=== PATIENT | male | born 1955 | race Caucasian/White ===

== ENCOUNTER → 2019-11-04 14:30 | Outpatient (BNVA) | payer MEDICARE, MEDICAID, SELFPAY | PROVIDERS: PCP Nurse Practitioner; Visit Provider Internal Medicine Cardiovascular Disease | DX: I25.10 Atherosclerotic heart disease of native coronary artery without angina pectoris (principal); R07.9 Chest pain, unspecified | CPT/HCPCS: 80061; 83036 ==

== ENCOUNTER 2019-12-28 06:48 | Outpatient (CLI) | payer MEDICARE, MEDICAID, SELFPAY ==
--- NOTE | 2019-12-28 06:54 | NMCV_ITS ---
NM petr perf SPECT r/s* [id number] Geovanni Dudley Age: 64 Gender: M : 1955 Exam Date: 12/28/2019 08:01 Ordering Phys: Benita Lopez MD ([email or web address]) Technologist: FARRUKH Tyler Exam Location: [facility] Indications: CHEST PAIN STRESS TEST Please see separate stress test report in [facility] for full findings IMAGE PROTOCOL Rest/Stress 1 Lexiscan Day Radiopharmaceutical Dose (mCi) Administration Site Administered by Rest: Tc-99m 10.8 IV FARRUKH Miller Sestamibi Stress:Tc-99m 32.9 IV FARRUKH Miller Sestamibi Rest: 28-Dec-2019 60 Discovery 630 Stress: 28-Dec-2019 30 Discovery 630 0.4mg Lexiscan. Images obtained in supine and prone position. SPECT RESULTS Technical Quality: Excellent Raw Data Analysis: Normal Image Corrections: No attenuation or motion correction applied Summed Stress Score: 23 Summed Rest Score: 21 Summed Difference Score: 3 PERFUSION FINDINGS Large size perfusion abnormality of moderate to severe severity of mid to apical anterior, mid to apical septal, apical inferior alvarez on rest and stress images. FUNCTIONAL RESULTS (calculated via Gated SPECT) Stress Image LV EF (%): 33 Stress EDV (mL):236 TID: 1.2 Stress ESV (mL):158 FUNCTIONAL FINDINGS: The left ventricle is dilated. Transient Ischemia Dilatation of 1.2. The left ventricular ejection fraction is severely reduced with a value of 33%. There is hypokinesis of mid to apical anterior septal and apical alvarez. There is severely decreased wall thickening. Markedly increased end-diastolic and end-systolic volumes. IMPRESSIONS 1. Large size predominantly fixed perfusion abnormality of moderate to severe severity of mid to apical anterior, mid to apical septal and apical alvarez. 2. This is suggestive of large area of old myocardial infarction in left anterior descending artery territory with no significant michael-infarct ischemia. 3. The left ventricular ejection fraction is severely reduced with a value of 33%. 4. There is hypokinesis of mid to apical anterior septal and apical alvarez. 5. No coronary ischemia based on the study. No prior similar studies to compare. Benita Lopez MD (Electronically Signed) Final Date: 30 Dec 2019 16:33 S
--- NOTE | 2019-12-28 07:00 | ECG_ITS ---
NAME OF STUDY: LEXISCAN SESTAMIBI STRESS TEST INDICATION: Chest Pain PROCEDURE: At the baseline, the blood pressure was 151/83 mmHg, oxygen saturation 96% with a heart rate of 56 bpm. The electrocardiogram showed sinus bradycardia with PACs, normal axis. Possible old anterior infarct. The Lexiscan was infused over a period of 20 seconds. A total of 0.4 milligrams of Lexiscan was infused. The stress phase was continued for a total of 5 minutes. Heart rate at the end of the stress phase was 58 bpm, oxygen saturation 96% with a blood pressure 143/78 mmHg. The EKG at the peak infusion revealed no significant ST-T wave changes. Sestamibi was injected 20 seconds after the Lexiscan infusion. Blood pressure at the end of the recovery phase was 142/75 mmHg, oxygen saturation 97% with a heart rate of 56 beats per minute. CONCLUSION: 1. No significant EKG changes with the LexiScan infusion. 2. No LexiScan induced chest pain or cardiac arrhythmia. 3. Normal blood pressure and heart rate response. 4. Sestamibi/sestamibi perfusion scan pending; see separate report. Electronically Signed On 12-29-2019 14:32:39 CDT by Benita Lopez M.D. [email or web address]
[2019-12-28 07:13] VITALS: BMI 29.5
[2019-12-28 08:43] VITALS: BP 129/97; PULSE 62
[2019-12-28] MEDS: regadenoson 0.4 Mg/5 ml Syringe IVP (08:43)
== END 2019-12-28 06:49 | disposition home or self-care (01) ==
PROVIDERS: PCP Nurse Practitioner; Visit Provider Internal Medicine Cardiovascular Disease
DX: R07.9 Chest pain, unspecified (principal); I25.10 Atherosclerotic heart disease of native coronary artery without angina pectoris
CPT/HCPCS: 78452; 93017; A9500; J2785

== ENCOUNTER → 2020-03-17 10:59 | Outpatient (BNVA) | payer MEDICARE, MEDICAID, SELFPAY | PROVIDERS: PCP Nurse Practitioner; Visit Provider Internal Medicine Cardiovascular Disease | DX: I25.10 Atherosclerotic heart disease of native coronary artery without angina pectoris (principal); R07.9 Chest pain, unspecified; I25.5 Ischemic cardiomyopathy; I10 Essential (primary) hypertension | CPT/HCPCS: 80053; 80061; 83735; 83880 ==

== ENCOUNTER → 2020-07-11 09:05 | Outpatient (BNVA) | payer MEDICARE, MEDICAID, SELFPAY | PROVIDERS: PCP Nurse Practitioner; Visit Provider Internal Medicine Cardiovascular Disease | DX: I25.5 Ischemic cardiomyopathy (principal); I25.10 Atherosclerotic heart disease of native coronary artery without angina pectoris; I10 Essential (primary) hypertension; E78.5 Hyperlipidemia, unspecified | CPT/HCPCS: 80048; 83735; 83880 ==

== ENCOUNTER 2020-08-16 13:44 | Outpatient (CLI) | payer MEDICARE, MEDICAID, SELFPAY ==
--- NOTE | 2020-08-16 14:15 | USCV_ITS ---
Dudley Geovanni Age: 64 Gender: M : 1955 Exam Date: 08/16/2020 14:11 Ordering Phys: Benita Lopez MD ([email or web address]) Technologist: Alda Chavarria Exam Location: [facility] [place] Indication: OCCLUSION ADN STENOSIS Risk Factors: Previous Vascular Surgery: Right Brachial BP: / Left Brachial BP: / Right Left Velocity (cm/s) Spectral Plaque Velocity (cm/s) Spectral Plaque Syst/Diast Broadening Syst/Diast Broadening 99.20/ 17.60 Prox CCA 75.10 / 15.30 93.70/ 25.40 Mid CCA 100.30/ 25.40 65.70/ 12.50 Distal CCA 70.10 / 18.10 68.40/ 21.80 Prox ICA 77.30 / 19.30 102.50/35.70 Mid ICA 87.70 / 24.60 108.80/38.80 Distal ICA 61.10 / 23.70 178.70 ECA 161.90 1.16 ICA/CCA 0.87 Antegrade Vertebral Antegrade 54.70/ 16.20 cm/s 39.00/ 13.60 cm/s Tri Subclavian Tri 61.80 58.40 FINDINGS Comparison:. 09/09/14. No significant elevation of systolic or diastolic velocities. Diffuse bilateral scattered calcified plaque and intimal thickening throughout the common carotid arteries and extending through the bifurcation. Right common carotid intimal thickening measures up to 3.1 mm. Antegrade vertebral arteries. CONCLUSIONS Bilateral ICA stenosis less than 50%. Moderate diffuse atherosclerotic disease. No progression. Dr. Jessica Stoner DO (Electronically Signed) Final Date: 17 August 2020 07:52 S
--- NOTE | 2020-08-16 15:00 | CT_ITS ---
WS: [id number] CT CHEST WITHOUT INTRAVENOUS CONTRAST HISTORY: R06.00 - Dyspnea, unspecified TECHNIQUE: Contiguous 5 mm axial imaging performed on the thorax. Coronal and sagittal reformats are submitted. All CT scans at [facility] use at least one of these dose optimization techniq ues: automated exposure control; mA and/or kV adjustment per patient size (includes targeted exams wh ere dose is matched to clinical indication); or iterative reconstruction. CONTRAST: None DLP: 781.78 mGy.cm COMPARISON: None available. Lungs and central airway: Hyperexpanded lungs. Moderate changes of paraseptal emphysema. There is arcenio e mild thickening of the pleura especially within the upper lung reza. Mild bronchiectasis centrall y extending into the upper lobes, LEFT lower and RIGHT middle lobes. More focal cystic dilatation of the bronchus in the LEFT lower lobe. Pleura: No pleural effusion. Heart and pericardium: Mild enlargement of the heart with no pericardial effusion. Scattered coronary artery calcifications. Mediastinum and travis: No mediastinum or hilar adenopathy. Vessels: Mild atherosclerosis aorta. Normal size pulmonary arteries. Chest wall and lower neck: No soft tissue masses. Upper abdomen: Prior cholecystectomy. No adrenal mass. Osseous structures: Multilevel degenerative disc space narrowing and osteophytosis throughout the mid thoracic spine. There are multilevel osteophytes that project towards the thoracic cord in the mid t horacic spine. CT/CT chest wo con [id number] IMPRESSION: 1. Paraseptal emphysema. No pulmonary pneumonia or mass. 2. Multilobar mild bronchiectasis. Most significant bronchial dilatation LEFT lower lobe. 3. Prior cholecystectomy. 4. Mild atherosclerosis aorta and kaibab coronary arteries.
== END 2020-08-16 13:45 | disposition home or self-care (01) ==
PROVIDERS: PCP Nurse Practitioner; Visit Provider Internal Medicine Cardiovascular Disease
DX: R06.00 Dyspnea, unspecified (principal); I65.23 Occlusion and stenosis of bilateral carotid arteries; I70.0 Atherosclerosis of aorta; Z90.49 Acquired absence of other specified parts of digestive tract; J47.9 Bronchiectasis, uncomplicated; J43.9 Emphysema, unspecified
CPT/HCPCS: 71250; 93880

== ENCOUNTER → 2020-10-12 09:29 | Outpatient (BNVA) | payer MEDICARE, MEDICAID, SELFPAY | PROVIDERS: PCP Nurse Practitioner; Visit Provider Internal Medicine Critical Care Medicine | DX: J44.9 Chronic obstructive pulmonary disease, unspecified (principal); Z20.828 Contact with and (suspected) exposure to other viral communicable diseases | CPT/HCPCS: 87635 ==

== ENCOUNTER 2020-10-18 13:51 | Outpatient (CLI) | payer MEDICARE, MEDICAID, SELFPAY ==
--- NOTE | 2020-10-18 14:21 | PFTS_ITS ---
Date of Study:10/18/20 Date of Dictation: MECHANICS: Forced vital capacity (FVC) is normal. Forced expiratory volume in one second (FEV1) is normal. FEV1/FVC is normal. FLOW VOLUME LOOP: Hesitation during forced expiratory maneuver LUNG VOLUMES: Total lung capacity (TLC) is normal. Residual volume (RV) is increased. DIFFUSING CAPACITY FOR CARBON MONOXIDE: Normal. INTERPRETATION: The prebronchodilator spirometry is normal. Lung volumes are consistent with air trapping. Gas exchange (DLCO) is normal. MTDD
== END 2020-10-18 13:52 | disposition home or self-care (01) ==
LOC: RT 13:52
PROVIDERS: PCP Nurse Practitioner; Visit Provider Internal Medicine Critical Care Medicine
DX: J44.9 Chronic obstructive pulmonary disease, unspecified (principal)
CPT/HCPCS: 94010; 94726; 94729

== ENCOUNTER 2020-11-21 14:56 | Outpatient (CLI) | payer MEDICARE, MEDICAID, SELFPAY ==
--- NOTE | 2020-11-21 15:45 | USCV_ITS ---
Geovanni Dudley Age: 65 Gender: M : 1955 Exam Date: 11/21/2020 15:22 Ordering Phys: Benita Lopez MD ([email or web address]) Technologist: Jez Mclean Exam Location: [facility] [place] Indication: ISCHEMIC CARDIOMYOPATHY BP: 136 / 72 HR: 56 Rhythm: Sinus Technical Quality: Good MEASUREMENTS (Male / Female) Normal Values 2D ECHO LV Diastolic Diameter PLAX 5.0 cm 4.2 - 5.9 / 3.9 - 5.3 cm LV Systolic Diameter PLAX 3.5 cm IVS Diastolic Thickness 1.4 cm 0.6 - 1.0 / 0.6 - 0.9 cm IVS Systolic Thickness 2.1 cm LVPW Diastolic Thickness 1.5 cm 0.6 - 1.0 / 0.6 - 0.9 cm LVPW Systolic Thickness 1.7 cm LVOT Diameter 2.0 cm LV Ejection Fraction 2D Teich 56.9 % LV Ejection Fraction MOD 2C 68.2 % LV Ejection Fraction 2C AL 68.8 % LA Diameter 4.4 cm LA Width 3.5 cm LA Height 5.2 cm RA Width 3.3 cm RA Height 5.1 cm Aorta at Sinotubular Diameter 3.2 cm M-MODE LV Diastolic Diameter MM 6.2 cm 4.2 - 5.9 / 3.9 - 5.3 cm LV Systolic Diameter MM 4.4 cm LV Ejection Fraction MM Teich 54.5 % IVS Diastolic Thickness MM 1.2 cm 0.6 - 1.0 / 0.6 - 0.9 cm IVS Systolic Thickness MM 1.5 cm LVPW Diastolic Thickness MM 1.1 cm 0.6 - 1.0 / 0.6 - 0.9 cm LVPW Systolic Thickness MM 1.6 cm Aortic Annulus Diameter 3.4 cm LA Ao Ratio MM 1.3 MV E Point Septal Separation 0.8 cm DOPPLER AV Peak Velocity 131.0 cm/s LVOT Peak Velocity 109.0 cm/s AV Area Cont Eq vti 2.2 cm squared AV Area Cont Eq pk 2.6 cm squared MV Area PHT 3.4 cm squared Mitral E to A Ratio 0.7 MV E' Velocity 39.0 cm/s Mitral E to MV E' Ratio 5.8 Mitral E to LV E' Lateral Ratio 4.8 Mitral E to LV E' Septal Ratio 7.4 TR Peak Velocity 162.3 cm/s TR Peak Gradient 10.5 mmHg Right Atrial Pressure 3.0 mmHg Pulmonary Artery Systolic Pressu 13.5 mmHg PV Peak Velocity 123.0 cm/s FINDINGS Left Ventricle Normal left ventricular size and mildly increased wall thickness, with no regional wall motion abnormalities. Normal left venntricular systolic function. Left ventricular ejection fraction is estimated at 55 %. Normal diastolic function. Right Ventricle Normal right ventricular size and systolic function. Right ventricular systolic pressure 13.5 mmHg. Right Atrium Normal right atrial size. Left Atrium Normal left atrial size. Mitral Valve Thickened mitral valve. No mitral valve stenosis. Trace mitral valve regurgitation. Aortic Valve Thickened trileaflet aortic valve. No aortic valve stenosis. Trace aortic valve regurgitation. Tricuspid Valve Structurally normal tricuspid valve. Trace tricuspid valve regurgitation. Pulmonic Valve Pulmonic valve not well visualized. Trace pulmonary valve regurgitation. Pericardium No pericardial effusion. Aorta Normal size aortic root and proximal ascending aorta. CONCLUSIONS 1. Normal left ventricular size and mildly increased wall thickness, with no regional wall motion abnormalities. Normal left venntricular systolic function. Left ventricular ejection fraction is estimated at 55 %. Normal diastolic function. 2. No significant valvular abnormalities. 3. Normal pulmonary artery pressure. 4. No prior similar studies to compare. Benita Lopez MD (Electronically Signed) Final Date: 25 November 2020 21:17 S
== END 2020-11-21 14:57 | disposition home or self-care (01) ==
LOC: RAD 15:03
PROVIDERS: PCP Nurse Practitioner; Visit Provider Internal Medicine Cardiovascular Disease
DX: I25.5 Ischemic cardiomyopathy (principal); R06.00 Dyspnea, unspecified
CPT/HCPCS: 93306

== ENCOUNTER → 2020-12-05 08:29 | Outpatient (BNVA) | payer MEDICARE, MEDICAID, SELFPAY | PROVIDERS: PCP Nurse Practitioner; Visit Provider Internal Medicine Cardiovascular Disease | DX: R06.00 Dyspnea, unspecified (principal); E78.5 Hyperlipidemia, unspecified; I25.10 Atherosclerotic heart disease of native coronary artery without angina pectoris | CPT/HCPCS: 80053; 80061; 83721; 83735 ==

== ENCOUNTER → 2022-02-26 12:59 | Outpatient (BNVA) | payer MEDICARE, MEDICAID, SELFPAY | PROVIDERS: PCP Nurse Practitioner; Visit Provider Internal Medicine Critical Care Medicine | DX: J44.9 Chronic obstructive pulmonary disease, unspecified (principal); I25.10 Atherosclerotic heart disease of native coronary artery without angina pectoris; F17.210 Nicotine dependence, cigarettes, uncomplicated; J96.12 Chronic respiratory failure with hypercapnia | CPT/HCPCS: 99214 ==

== ENCOUNTER 2022-07-25 12:40 | Emergency (ER) | payer MEDICARE, MEDICAID, SELFPAY ==
[2022-07-25 12:52] VITALS: BP 147/74; PULSE 56; RESP 16; TEMP 36.6; O2SAT 95
[2022-07-25 13:59] LABS: Basophils # 0.1 10^3/uL (0.0-0.1); Basophils % 0.8 %; Eosinophils # 0.2 10^3/uL (0.0-0.8); Eosinophils % 2.5 %; Hematocrit 40.4 % (42.0-52.0); Hemoglobin 13.6 g/dL (11.7-16.6); Lymphocytes # 2.1 10^3/uL (0.8-4.8); Lymphocytes % 23.8 %; Mean Corpuscular HGB Conc 33.7 g/dL (30.0-36.0); Mean Corpuscular Hemoglobin 30.8 pg (28.0-34.0); Mean Corpuscular Volume 91.6 fl (80-94); Mean Platelet Volume 10.4 fL (7.4-10.4); Monocytes # 0.6 10^3/uL (0.2-0.9); Monocytes % 6.9 %; Neutrophils % 64.4 %; Nucleated Red Blood Cells % 0 %; Platelet Count 142 10^3/cmm (130-400); Red Blood Count 4.41 10^6/uL (4.1-5.3); Red Cell Distribution Width 16.9 % (12.1-15.1); White Blood Count 8.7 10^3/uL (4.0-10.0)
[2022-07-25 14:23] LABS: Blood Urea Nitrogen 15 mg/dL (8-23); Calcium 9.1 mg/dL (8.5-10.5); Carbon Dioxide 26 mmol/L (22-29); Chloride 102 mmol/L (98-107); Glomerular Filtration Rate 96.7 mL/min (90-130); Glucose 105 mg/dL (65-115); Osmolality Calculated 287 mOsm/kg (285-295); Sodium 138 mmol/L (136-145)
--- NOTE | 2022-07-25 14:37 | ED_ITS ---
HPI - Male Genitourinary General: Chief complaint: Urogenital-Male Stated complaint: urinating blood Time Seen by Provider: 07/25/22 13:00 Source: patient and family () Mode of arrival: ambulatory Limitations: no limitations History of Present Illness: See nursing assessment. Patient states he has had mild dysuria and hematuria with some small blood clots since yesterday. He is also had occasional bilateral flank pain in the mornings. Denies any fever or chills. Denies any purulent discharge from his penis. States he had similar episode about a month ago but symptoms resolved within 24 to 36 hours. He denies any previous history of kidney stones or problems with his bladder or kidneys. He states he does have possible history of essential hypertension and coronary disease and GA several years ago. States he had coronary stent placed at the time of the GA. States he takes no blood thinners except for baby aspirin daily. He takes antihypertensive medications as well. Denies any previous prostate problems. Associated symptoms: Deny nausea or vomiting Review of Systems Const: Denies: fever(s) or chills Eyes: Denies: change in vision ENMT: Denies: throat pain Card: Denies: chest pain or palpitations Resp: Denies: dyspnea or wheezing GI: Denies: abdominal pain, nausea or vomiting : Reports: flank pain and other (Occasional dysuria, hematuria) Musc: Denies: neck pain or back pain Skin/Breast: Denies: rash or pruritus Neuro: Denies: headache(s) or numbness in extremities Psych: Denies: anxiety Dav/Lymph: Denies: enlarged lymph nodes PFSH ED PFSH: Medical History CAD (coronary artery disease) COPD (chronic obstructive pulmonary disease) Dyslipidemia HTN (hypertension) Smoker Surgical History S/P coronary artery stent placement Family History Other CAD (coronary artery disease) Social History Smoking and tobacco status: current every day smoker (1ppd) cigarettes Packs smoked per day: 2 Years cigarettes smoked: 53 [ Other cigarette details: started at age 13 years] Smoking risk assessment/counseling performed?: Yes Alcohol intake: current Alcohol intake frequency: few times a week Alcohol type: beer Counseling given: Yes Counseling given: No Lives independently: Yes Household members: spouse Marital status: Current occupational status: disabled History of recent travel: No Current gender identity: Male Supplemental [facility] Information: History of coronary stent years ago. Physical Exam Const: COMMON NORMALS: no acute distress, patient oriented x3, no limitations and well nourished GENERAL APPEARANCE: cooperative HENMT: COMMON NORMALS: normocephalic and atraumatic HEAD & SCALP: normocephalic and atraumatic FACE & SINUS: normal facial exam Eye: COMMON NORMALS: EOMs intact bilaterally Neck/C-Spine: COMMON NORMALS: full ROM, no lymphadenopathy, supple and no meningeal signs GENERAL: Yes normal visual inspection Lymph: LYMPHATIC: no lymphadenopathy noted Chest: COMMONS NORMALS: normal inspection of the chest and normal palpation of entire chest wall CHEST: No Ecchymosis present and No rash Resp: COMMON NORMALS: normal respiratory effort, No retractions and clear to auscultation bilaterally EFFORT & INSPECTION: No respiratory distress AUSCULTATION: clear to auscultation bilaterally Cardio: COMMON NORMALS: regular rate, regular rhythm and Peripheral pulses 2+ throughout JUGULAR VENOUS DISTENTION: no JVD RATE: regular rate RHYTHM: regular rhythm PERIPHERAL PULSES: Peripheral pulses 2+ throughout GI: COMMON NORMALS: Normal to inspection, nondistended, normoactive bowel sounds present and non-tender OTHER: Nontender even with deep palpation. : COMMON NORMALS: Yes no CVA tenderness BLADDER/KIDNEY EXAM: Yes no CVA tenderness Back/Pelvis: COMMON NORMALS: no CVA tenderness Extremity: COMMON NORMALS: normal to inspection, full ROM and capillary refill normal Neuro: COMMON NORMALS: patient oriented x3, CN's II-XII intact bilaterally, no focal motor deficits and no sensory deficits noted MENINGEAL SIGNS: Yes no meningeal signs Psych: COMMON NORMALS: mental status grossly normal and Normal thought process present THOUGHT PROCESS: Normal thought process present Skin: COMMON NORMALS: no rashes or lesions noted and no wounds GENERAL SKIN EXAM: no rashes or lesions noted Course Vital Signs: Vital signs: Vital Signs Temperature 97.8 F 07/25/22 12:52 Pulse Rate 56 L 07/25/22 12:52 Respiratory Rate 16 07/25/22 12:52 Blood Pressure 147/74 07/25/22 12:52 Pulse Oximetry 95 07/25/22 12:52 Oxygen Delivery Me thod 07/25/22 12:52 MDM - Male Medical Decision Making Nephrolithiasis versus ureterolithiasis versus cystitis versus prostatitis versus tumor 1607: Paged Dr. Martini of urology for consult. 1620: Discussed with Dr. Martini urology. He will attempt to call back with appointment time for urgent follow-up. He states if appointment cannot be made in the next few minutes he will call patient directly for appointment time. Dr. Martini's office called back with an appointment time on Friday that July 29 at 10:30 AM. Medical Records Nephrolithiasis versus ureterolithiasis versus cystitis versus prostatitis versus tumor Lab Data 07/25/22 13:45 07/25/22 13:45 Radiology Impressions Abdomen/Pelvis CT 07/25/22 14:36 IMPRESSION: 1. Nodular thickening of the left posterolateral bladder wall suspicious for bladder neoplasm. See discussion above. Cystoscopy correlation is recommended. 2. No obstructing calculi or large contour deforming solid renal mass however follow-up exam with IV contrast may also be considered given history of hematuria. 3. Fusiform distal abdominal aortic aneurysm. 4. Mild hepatomegaly with steatosis. 5. Coronary calcification and other nonacute findings as above. COMMENTS: Consistent with the [place] [employer]'s Incidental Findings Committee white paper (J Am Wendy Radiol 2018): Any incidental renal lesion less than 1 cm or classified as too small to characterize, or any incidental cystic renal lesion characterized as simple-appearing, is likely benign. No follow-up imaging is recommended for these lesions per consensus recommendations based on imaging criteria. Laboratory Results WBC 8.7 10^3/uL (4.0-10.0) 07/25/22 13:45 RBC 4.41 10^6/uL (4.1-5.3) 07/25/22 13:45 Hgb 13.6 g/dL (11.7-16.6) 07/25/22 13:45 Hct 40.4 % (42.0-52.0) L 07/25/22 13:45 MCV 91.6 fl (80-94) 07/25/22 13:45 MCH 30.8 pg (28.0-34.0) 07/25/22 13:45 MCHC 33.7 g/dL (30.0-36.0) 07/25/22 13:45 RDW 16.9 % (12.1-15.1) H 07/25/22 13:45 Plt Count 142 10^3/cmm (130-400) 07/25/22 13:45 MPV 10.4 fL (7.4-10.4) 07/25/22 13:45 Neut % (Auto) 64.4 % 07/25/22 13:45 Lymph % (Auto) 23.8 % 07/25/22 13:45 [place] % (Auto) 6.9 % 07/25/22 13:45 Eos % (Auto) 2.5 % 07/25/22 13:45 Baso % (Auto) 0.8 % 07/25/22 13:45 Neut # (Auto) 5.60 10^3/uL (1.8-7.7) 07/25/22 13:45 Lymph # (Auto) 2.1 10^3/uL (0.8-4.8) 07/25/22 13:45 [place] # (Auto) 0.6 10^3/uL (0.2-0.9) 07/25/22 13:45 Eos # (Auto) 0.2 10^3/uL (0.0-0.8) 07/25/22 13:45 Baso # (Auto) 0.1 10^3/uL (0.0-0.1) 07/25/22 13:45 Nucleated RBC % (auto) 0 % 07/25/22 13:45 Nucleated RBCs # 0.0 /100WBC 07/25/22 13:45 Sodium 138 mmol/L (136-145) 07/25/22 13:45 Potassium 4.0 mmol/L (3.5-5.1) 07/25/22 13:45 Chloride 102 mmol/L (98-107) 07/25/22 13:45 Carbon Dioxide 26 mmol/L (22-29) 07/25/22 13:45 Anion Gap 14.0 (5-19) 07/25/22 13:45 BUN 15 mg/dL (8-23) 07/25/22 13:45 Creatinine 0.8 mg/dL (0.7-1.2) 07/25/22 13:45 GFR Calculation 96.7 mL/min (90-130) 07/25/22 13:45 Glucose 105 mg/dL (65-115) 07/25/22 13:45 Calculated Osmolality 287 mOsm/kg (285-295) 07/25/22 13:45 Calcium 9.1 mg/dL (8.5-10.5) 07/25/22 13:45 Urine Color Red (Yellow) 07/25/22 13:45 Urine Appearance Cloudy (CLEAR) A 07/25/22 13:45 Urine pH 5 (5-7) 07/25/22 13:45 Ur Specific [place] 1.025 (1.005-1.030) 07/25/22 13:45 Urine Protein 2+ (Negative) H 07/25/22 13:45 Urine Glucose (UA) Norm (Normal) 07/25/22 13:45 Urine Ketones Negative (Negative) 07/25/22 13:45 Urine Blood 3+ (Negative) H 07/25/22 13:45 Urine Nitrate Positive (Negative) H 07/25/22 13:45 Urine Bilirubin 1+ (Negative) H 07/25/22 13:45 Urine Urobilinogen 1 mg/dL (Negative) H 07/25/22 13:45 Ur Leukocyte Esterase Negative (Negative) 07/25/22 13:45 Urine RBC Too numerous to cnt /hpf (0-2) H 07/25/22 13:45 Urine WBC Rare /hpf (0-5) 07/25/22 13:45 Ur Squamous Epith Cells None /hpf (0-5) 07/25/22 13:45 Amorphous Sediment Not Reportable 07/25/22 13:45 Urine Bacteria 1+ /hpf (NONE) H 07/25/22 13:[address] Abd/Pel: Radiologist's impression: PROCEDURE INFORMATION: Exam: CT Abdomen And Pelvis Without Contrast Exam date and time: 07/25/2022 3:15 PM Age: 66 years old Clinical indication: Other: Hematuria; Prior surgery; Surgery type: Gb; Additional info: Bilateral flank pain; Hematuria TECHNIQUE: Imaging protocol: Computed tomography of the abdomen and pelvis without contrast. Radiation optimization: All CT scans at this facility use at least one of these dose optimization techniques: automated exposure control; mA and/or kV adjustment per patient size (includes targeted exams where dose is matched to clinical indication); or iterative reconstruction. COMPARISON: CT chest wo con [id number] 08/16/2020 1:50 PM RADIATION DOSE METRICS: Total DLP (mGy-cm): 727.98 FINDINGS: Lungs: Somewhat focal area of cystic bronchiectasis with bronchial wall thickening in the left lung base adjacent to diaphragm similar to prior exam. No obvious acute consolidation in the lung bases. Heart: Mild cardiomegaly with coronary calcification. Liver: Mild hepatomegaly with steatosis. No obvious cirrhosis. Gallbladder and bile ducts: Prior cholecystectomy. Pancreas: Normal. No ductal dilation. Spleen: Normal spleen size with calcified splenic granulomas. Adrenal glands: Normal. No mass. Kidneys and ureters: See Urinary bladder finding. Stomach and bowel: Low-moderate amount of fecal retention. No obvious bowel dilatation, pneumatosis or suspicious bowel wall thickening however assessment is limited due to lack of contrast. Appendix: Normal appendix. Intraperitoneal space: Unremarkable. No free air. No significant fluid collection. Vasculature: There is fusiform dilatation of the distal aorta with maximum diameter of the infrarenal aorta measuring 4.1 by 3.9 cm on transverse images. There is no discrete aneurysm waist with minimal luminal dilatation of the common iliac artery origin contiguous with the aneurysm. The suprarenal aorta measures about 2.9 cm. Lymph nodes: No enlarged lymph nodes. Urinary bladder: Suboptimal bladder assessment due to nondistention. However there is a suggestion of nodular/focal bladder wall thickening at the posterior left lateral aspect measuring about 18 x 19 mm which may represent a bladder neoplasm with small peripheral calcifications. Cystoscopy correlation is recommended. No obstructing urinary calculi on either side. No hydronephrosis. Hypodense posterior right renal lesion measuring 11 mm, probably simple cysts however assessment is limited without IV contrast in the setting of hematuria. Reproductive: Minimal prostate enlargement. Bones/joints: Multilevel vertebral disc degeneration and endplate osteophytes. No acute osseous findings otherwise. Soft tissues: No acute findings. CT/CT kidney stone [id number] IMPRESSION: 1. Nodular thickening of the left posterolateral bladder wall suspicious for bladder neoplasm. See discussion above. Cystoscopy correlation is recommended. 2. No obstructing calculi or large contour deforming solid renal mass however follow-up exam with IV contrast may also be considered given history of hematuria. 3. Fusiform distal abdominal aortic aneurysm. 4. Mild hepatomegaly with steatosis. 5. Coronary calcification and other nonacute findings as above. ? COMMENTS: Consistent with the [place] [employer]'s Incidental Findings Committee white paper (J Am Wendy Radiol 2018): Any incidental renal lesion less than 1 cm or classified as too small to characterize, or any incidental cystic renal lesion characterized as simple-appearing, is likely benign. No follow-up imaging is recommended for these lesions per consensus recommendations based on imaging criteria. ? Dictated By: Jenn Brian MD Signed By: Jenn Brian MD Signed Date/Time: 07/25/22 4986 Discharge Plan Discharge Patient Disposition: Home Clinical Impression: Bladder tumor, Abdominal aortic aneurysm (AAA) 3.0 cm to 5.5 cm in diameter in male Hematuria Qualifiers: Hematuria type: unspecified type Qualified Code(s): R31.9 - Hematuria, unspecified Condition: Stable Prescriptions: No Action nitroglycerin 0.4 mg tablet, sublingual 0.4 mg SUBLINGUAL Q5M PRN (Reason: chest pain) Qty: 25 6RF Rx Instructions: until response; do not exceed 3 doses per episode albuterol sulfate 90 mcg/actuation HFA aerosol inhaler 2 puff inhalation 6XD PRN (Reason: shortness of breath or wheezing) 30 Days Qty: 18 3RF pantoprazole [Protonix] 40 mg tablet,delayed release (DR/EC) 40 mg PO DAILY Qty: 30 3RF spironolactone 50 mg tablet 50 mg PO DAILY Qty: 30 0RF Rx Instructions: Make follow-up for further refills isosorbide mononitrate 30 mg tablet extended release 24 hr 30 mg PO DAILY Qty: 30 0RF Rx Instructions: Make follow-up for further refills atorvastatin 40 mg tablet 40 mg PO DAILY Qty: 90 3RF Bevespi Aerosphere 9-4.8 mcg HFA aerosol inhaler See Rx Instructions .ROUTE .COMPLEX Qty: 10.7 3RF Dose Instruction: INHALE 2 PUFFS INTO LUNGS TWICE DAILY Rx Instructions: INHALE 2 PUFFS INTO LUNGS TWICE DAILY Aspir-81 81 mg Tablet,Delayed Release (Dr/Ec) 81 mg PO DAILY Discharge Orders: Discharge ED (Routine); Ordered 07/25/22 Ordered By: Yassine Hewitt Referrals: Grant Larose, [employer] [Primary Care Provider] - Luis A Martini MD [Physician] - 07/29/22 10:30 am Discharge Diet: Cardiac Discharge Activity: Increase activity as tolerated Patient Instructions: Nonruptured Abdominal Aortic Aneurysm (DC), Bladder Cancer (DC), Hematuria (ED), Opioid Safety, Pain Management Activity Restrictions/Additional Instructions: You have a 2 cm x 2 cm tumor in the left posterior bladder wall. This may be cancer. You will need to follow-up with urology Dr. Martini as directed. Drink plenty of water. May start taking baby aspirin daily tomorrow. You have an appointment with Dr. Martini on Friday in his clinic at 10:30 AM. 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
[2022-07-25 15:08] LABS: Add Urine Culture? Yes; Bacteria Urine 1+ /hpf; Bilirubin Urine 1+ (Negative); Blood Urine 3+ (Negative); Glucose Urine UA Norm (Normal); Ketones Urine Negative (Negative); Leukocyte Esterase Urine Negative (Negative); Nitrate Urine Positive (Negative); Protein Urine 2+ (Negative); RBC Urine TOO NUMEROUS TO CNT /hpf (0-2); Specific Gravity, Urine 1.025 (1.005-1.030); Urine Appearance Cloudy (CLEAR); Urine Color Red (Yellow); Urobilinogen Urine 1 mg/dL (Negative); WBC Urine RARE /hpf (0-5); pH Urine 5 (5-7)
[2022-07-25 17:15] VITALS: BP 138/72; PULSE 60; RESP 14; O2SAT 96
== END 2022-07-25 17:15 | disposition home or self-care (01) ==
PROVIDERS: Emergency Provider Family Medicine; PCP Nurse Practitioner
DX: R31.9 Hematuria, unspecified (principal); D49.4 Neoplasm of unspecified behavior of bladder; I71.40 Abdominal aortic aneurysm, without rupture, unspecified; Z79.84 Long term (current) use of oral hypoglycemic drugs; I25.10 Atherosclerotic heart disease of native coronary artery without angina pectoris; J44.9 Chronic obstructive pulmonary disease, unspecified; E78.5 Hyperlipidemia, unspecified; I10 Essential (primary) hypertension; F17.210 Nicotine dependence, cigarettes, uncomplicated
CPT/HCPCS: 74176; 80048; 81001; 85025; 87086; 99284

== ENCOUNTER → 2022-07-29 10:24 | Outpatient (BNVA) | payer MEDICARE, MEDICAID, SELFPAY | PROVIDERS: PCP Nurse Practitioner; Visit Provider Urology | DX: R31.0 Gross hematuria (principal); D49.4 Neoplasm of unspecified behavior of bladder; I65.23 Occlusion and stenosis of bilateral carotid arteries; I25.10 Atherosclerotic heart disease of native coronary artery without angina pectoris; R00.1 Bradycardia, unspecified; I25.5 Ischemic cardiomyopathy; F17.200 Nicotine dependence, unspecified, uncomplicated; I10 Essential (primary) hypertension | CPT/HCPCS: 51798; 52000; 81003; 99204 ==

== ENCOUNTER 2022-07-31 10:58 | Outpatient (CLI) | payer MEDICARE, MEDICAID, SELFPAY | END 2022-07-31 10:59 | disposition home or self-care (01) | LOC: RT 08-19 10:59 | PROVIDERS: PCP Nurse Practitioner; Visit Provider Urology | DX: Z13.6 Encounter for screening for cardiovascular disorders (principal); I45.89 Other specified conduction disorders | CPT/HCPCS: 93005 ==

== ENCOUNTER → 2022-08-06 14:35 | Outpatient (BNVA) | payer MEDICARE, MEDICAID, SELFPAY | PROVIDERS: PCP Nurse Practitioner; Visit Provider Internal Medicine Cardiovascular Disease | DX: R07.9 Chest pain, unspecified (principal); I25.10 Atherosclerotic heart disease of native coronary artery without angina pectoris; I25.5 Ischemic cardiomyopathy; I10 Essential (primary) hypertension; E78.5 Hyperlipidemia, unspecified; I65.23 Occlusion and stenosis of bilateral carotid arteries; J44.9 Chronic obstructive pulmonary disease, unspecified; I71.40 Abdominal aortic aneurysm, without rupture, unspecified; F17.210 Nicotine dependence, cigarettes, uncomplicated | CPT/HCPCS: 99214 ==

== ENCOUNTER 2022-08-07 22:22 | Inpatient (IN) | payer MEDICARE, MEDICAID, SELFPAY ==
[2022-07-31 10:36] VITALS: BMI 29.5
--- NOTE | 2022-07-31 10:41 | ECG_ITS ---
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 Measurements Intervals [place] Rate: 45 P: 37 CT: 190 QRS: 7 QRSD: 120 T: 51 QT: 403 QTc: 350 Interpretive Statements SINUS BRADYCARDIA MODERATE INTRAVENTRICULAR CONDUCTION DELAY [105+ ms QRS DURATION, 80+ ms Q/S IN V1/V2, NO Q AND 60+ ms R IN I/aVL/V5/V6] No previous ECG available for comparison Electronically Signed On 08-01-2022 9:24:15 COMMERCIAL FINANCE ANALYST by Benita Lopez M.D. [id number] f
--- NOTE | 2022-07-31 16:11 | ANES.PREANE2 ---
Pre-Anesthetic Assessment Height/Weight: Height 1.75 m Weight 90.718 kg Operation Date: 08/07/22 07:00 Proposed Procedures s CYSTOSCOPY TRANSURETHRAL RESECTION BLADDER TUMORS 83130,D49.4(Not Applicable) - Luis A Martini MD p CYSTOSCOPY TRANSURETHRAL RESECTION BLADDER TUMORS 64613,D49.4(Not Applicable) - Luis A Martini MD Familial anesthetic complications: none Was Beta Ki taken within 24 hours: N/A Was Clonidine taken within 24 hours: N/A Social Tobacco and No alcohol Exam alert, oriented x 3 and regular rate & rhythm rhonchi Airway Submandibular: within normal limits Cervical ROM: within normal limits Mallampati: Class II Dentition: false Pulmonary Chronic Obstructive Pulmonary Disease CV/HEM Arrythmia (Sinus mabel), Coronary Artery Disease (stent), Hypertension, Myocardial Infarction and Peripheral Vascular Disease (Carotid dz, AAA) Bladder tumor GI Gastroesophageal Reflux Disease Metabolic Hyperlipidemia Anesthetic Plan ASA status: 3 Anesthesia: General Medications/Allergies Home Medications Medication Instructions Recorded Confirmed Last Taken Type nitroglycerin 0.4 mg sublingual 0.4 mg sublingual Q5M PRN chest 05/26/20 07/31/22 Unknown Rx tablet pain #25 tabs albuterol sulfate 90 mcg/actuation 2 puff inhalation 6XD PRN 09/13/20 07/31/22 07/30/22 Rx aerosol inhaler shortness of breath or wheezing 30 days #18 grams pantoprazole 40 mg tablet,delayed 40 mg PO DAILY #30 tabs 07/30/21 07/31/22 07/30/22 Rx release (Protonix) isosorbide mononitrate 30 mg 30 mg PO DAILY #30 tabs 02/25/22 07/31/22 07/30/22 Rx tablet,extended release 24 hr spironolactone 50 mg tablet 50 mg PO DAILY #30 tabs 02/25/22 07/31/22 07/30/22 Rx atorvastatin 40 mg tablet 40 mg PO DAILY #90 tabs 04/05/22 07/31/22 07/31/22 Rx aspirin 81 mg tablet,delayed 81 mg PO DAILY 07/25/22 07/31/22 07/31/22 History release Allergies Allergy/AdvReac Type Severity Reaction Status Date / Time No Known Allergies Allergy Verified 07/31/22 10:31 [facility] Anesthesia Medical History CAD (coronary artery disease) COPD (chronic obstructive pulmonary disease) Dyslipidemia HTN (hypertension) Smoker Surgical History S/P coronary artery stent placement Family History Mother , AT AGE 64 Heart attack Father , AT AGE 66 Cancer LUNG Other CAD (coronary artery disease) Social History Smoking and tobacco status: current every day smoker (1ppd) cigarettes Packs smoked per day: 2 Years cigarettes smoked: 53 [ Other cigarette details: started at age 13 years] Smoking risk assessment/counseling performed?: Yes Alcohol intake: current Alcohol intake frequency: few times a week Alcohol type: beer Counseling given: Yes Counseling given: No Lives independently: Yes Household members: spouse Marital status: Current occupational status: disabled History of recent travel: No Current gender identity: Male Data Anesthesia Cardiac Studies: Echocardiogram Ultrasound 11/21/20 Sestamibi Stress Test (Cardiology) 12/28/19 Holter Monitor 01/24/21
[2022-08-07] VITALS (26 sets, daily range): BP systolic 140–170; BP diastolic 67–98; PULSE 53–80; RESP 16–23; TEMP 36.6–37.2; O2SAT 91–99
--- NOTE | 2022-08-07 08:09 | ANES.PAUD2 ---
Pre-Anesthetic Update Pre-Anesthetic Assessment: Date of Surgery/Procedure: 08/07/22 Preop Diagnosis: Newly diagnosed bladder cancer Proposed Procedure: Operation Date: 08/07/22 09:10 Proposed Procedures s CYSTOSCOPY TRANSURETHRAL RESECTION BLADDER TUMORS 76960,D49.4(Not Applicable) - Luis A Martini MD p CYSTOSCOPY TRANSURETHRAL RESECTION BLADDER TUMORS 07451,D49.4(Not Applicable) - Luis A Martini MD Any changes to Pre-Anesthetic Assessment?: No Last Intake: Intake Last Liquid Date 08/06/22 Last Liquid Time 17:00 Last Solid Date 08/06/22 Last Solid Time 13:00 Vitals: Temperature 98.9 F 08/07/22 07:47 Temperature Source Temporal Artery S can 08/07/22 07:47 Pulse Rate 53 L 08/07/22 07:47 Respiratory Rate 16 08/07/22 07:47 Blood Pressure 170/74 08/07/22 07:47 Blood Pressure Ros n 106 08/07/22 07:47 Pulse Oximetry 97 08/07/22 07:47 Oxygen Delivery Me thod 08/07/22 07:47 Exam: Pre-Anes Outpt Exam: alert, oriented x 3, clear to auscultation bilaterally and regular rate & rhythm Cardiac Studies: Echocardiogram Ultrasound 11/21/20 Sestamibi Stress Test (Cardiology) 12/28/19 Holter Monitor 01/24/21
[2022-08-07 08:12] LABS: Basophils # 0.1 10^3/uL (0.0-0.1); Eosinophils # 0.3 10^3/uL (0.0-0.8); Eosinophils % 3.2 %; Hematocrit 42.3 % (42.0-52.0); Hemoglobin 14.1 g/dL (11.7-16.6); Lymphocytes # 2.1 10^3/uL (0.8-4.8); Lymphocytes % 25.4 %; Mean Corpuscular HGB Conc 33.3 g/dL (30.0-36.0); Mean Corpuscular Hemoglobin 30.5 pg (28.0-34.0); Mean Corpuscular Volume 91.4 fl (80-94); Mean Platelet Volume 10.3 fL (7.4-10.4); Monocytes # 0.8 10^3/uL (0.2-0.9); Monocytes % 9.5 %; Neutrophils # 4.88 10^3/uL (1.8-7.7); Neutrophils % 59.3 %; Nucleated Red Blood Cells % 0 %; Platelet Count 119 10^3/cmm (130-400); Red Blood Count 4.63 10^6/uL (4.1-5.3); Red Cell Distribution Width 17.3 % (12.1-15.1); White Blood Count 8.2 10^3/uL (4.0-10.0)
--- NOTE | 2022-08-07 08:13 | P.HPUD_ITS ---
Surgery/Procedure H&P Update DATE OF PROCEDURE: August 07, 2022 DATE H&P PERFORMED: 07/29/22 H&P UPDATE INFORMATION: I have reviewed H&P completed within last 30 days, I have examined patient prior to procedure, No changes to prior documentation and H&P is in [facility] E[place] on date indicated CHANGES TO PREVIOUS DOCUMENTATION: Reviewed the plans again, expectations, no further questions expressed PREOP DIAGNOSIS: Newly diagnosed bladder cancer PLANNED PROCEDURE: Operation Date: 08/07/22 09:10 Proposed Procedures s CYSTOSCOPY TRANSURETHRAL RESECTION BLADDER TUMORS 36510,D49.4(Not Applicable) - Luis A Martini MD p CYSTOSCOPY TRANSURETHRAL RESECTION BLADDER TUMORS 21089,D49.4(Not Applicable) - Luis A Martini MD
--- NOTE | 2022-08-07 08:14 | PM.OP ---
Operative Report Date of procedure: August 07, 2022 Pre-op diagnosis: Newly diagnosed bladder cancer Post-op diagnosis: Newly diagnosed bladder cancer Procedure done: 1. Cystoscopy, transurethral section of bladder tumor large Implants: None Specimens removed/disposition: Bladder tumor chips Pathology: Bladder tumor chips 1. Left posterolateral bladder floor 2. Dome 3. Bladder neck 4. Base of left posterolateral bladder floor with muscle exposed Surgeon: Lianet Estimated blood loss: Minimal Urine output: Not measured Complications: None Findings: Anesthesia: General Condition: Stable Disposition: PACU Intraoperative findings: Tubal areas including the dome, bladder neck, left posterolateral floor with papillary tumors. None appeared invasive. All appeared superficial No problems Brief History: Geovanni is a very pleasant 66-year-old white male recently evaluated for gross hematuria and CT scan prior to urology visit showed what appeared to be some soft tissue masses in the bladder. 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 Admitted now for TURBT. Procedure: After routine preoperative evaluation examination and obtaining of informed consent patient was taken to the operating suite where general anesthesia was administered without difficulty after appropriate timeout was performed, SCDs confirmed to be functioning, preoperative antibiotics administered, beta-sravani protocol confirmed. Prepped and draped in usual sterile fashion in dorsolithotomy position paying careful attention to voiding pressure points. 21 [place] cystoscope with 30 degree lens was introduced into urethra meatus and advanced into the bladder without difficulty. The bladder was systematically examined. 30 and 70 degree lenses were used. Papillary lesions were noted in multiple locations on the bladder neck as well as on the left posterolateral floor. No new findings identified not seen already in clinic. The urethra was then calibrated with Nunda sounds and easily accommodated 30 [place]. 2% lidocaine jelly was instilled into the urethra and then a 25 [place] continuous-flow resectoscope sheath with visual obturator in place was advanced into the bladder without difficulty. The gyrus bipolar resectoscope with super loop and button probes were utilized landmarks were ascertained specifically the ureteral orifices and trigone. The largest of the tumors resected first with a super loop into the bladder wall specimens were sent and then deep biopsy was performed at the base and also sent separately. Muscle was clearly exposed at the base. Multiple other smaller papillary lesions were resected. These were sent together with most of them being from the dome. There was a sample at the bladder neck sent separately Total aggregate resection was approximately 5 cm. The button probe was utilized for obtaining hemostasis. Orifices confirmed to be uninvolved in the resection. Ellik evacuator was utilized sequentially throughout the procedure to remove all specimens in order. No residual fragments remained, hemostasis was confirmed and the procedure was completed. Bladder was drained with a 20 [place] three-way Serrano catheter in place to dependent drainage with a plug in the drainage port. He tolerated procedure well without complications and was awakened in the operating room and returned to the recovery room in stable condition. PLANS: 1. Admit to observation status to [facility] 2. Mitomycin tomorrow with voiding trial afterwards and anticipation of discharge on postop day #1
[2022-08-07 08:30] LABS: Alanine Aminotransferase 26 U/L (0-41); Albumin Level 4.4 g/dL (3.5-5.2); Alkaline Phosphatase 86 U/L (40-130); Blood Urea Nitrogen 14 mg/dL (8-23); Calcium 8.9 mg/dL (8.5-10.5); Carbon Dioxide 25 mmol/L (22-29); Chloride 100 mmol/L (98-107); Globulin 2.9 g/dL (1.3-4.6); Glomerular Filtration Rate 112.8 mL/min (90-130); Glucose 116 mg/dL (65-115); Osmolality Calculated 279 mOsm/kg (285-295); Sodium 134 mmol/L (136-145); Total Bilirubin 0.5 mg/dL (0.15-1.2); Total Protein 7.3 g/dL (6.6-8.7)
[2022-08-07 08:39] LABS: Anion Gap 13.5 (5-19); Aspartate Amino Transferase 29 U/L (0-40); Potassium 4.5 mmol/L (3.5-5.1)
[2022-08-07] MEDS: levofloxacin-dextrose 5 % 500 MG/100 ML PREMIX 100 MG IV (09:42)
[2022-08-07] MEDS: lidocaine 2% Urojet 20 mL XX (10:00)
[2022-08-07] MEDS: hyDRALAzine 20 mg/mL INJ 1 mL (11:08)
[2022-08-07] MEDS: fentaNYL 50 mcg/mL INJ 2mL 100 MCG IVP (11:49)
--- NOTE | 2022-08-07 12:08 | ANE.PACU2 ---
Inpatient post-anesthesia follow up: Airway intact: Yes Vital signs: Temperature 98.3 F Pulse Rate 61 Respiratory Rate 20 Blood Pressure 143/74 Pulse Oximetry 93 Oxygen Delivery Me thod Room Air Oxygen Flow Rate 10 Fraction of Inspir ed Oxygen Hydration adequate: Yes Nausea and vomiting: No Pain level: 1 Mental status: Baseline
[2022-08-07] MEDS: D5-NS 0.45% + KCL 20 mEq 20 MEQ/1,000 ML BAG 50 MEQ IV (12:37)
[2022-08-07] MEDS: HYDROcodone-acetaminophen 5-325 mg Tablet 1 TAB PO ×2 (12:40→18:25)
[2022-08-07] MEDS: phenazopyridine 100 mg Tablet 200 MG PO (14:33)
--- NOTE | 2022-08-07 17:47 | PM.MISC ---
Miscellaneous Note Purpose of Documentation: Initially was doing very well postop with clear urine for approximately 4 hours. On a routine check his urine was noted to be bloody. No precipitating event that he could relate. Catheter was irrigated and CBI was started but remained intermittently bloody with clots. I switched out his Serrano catheter from a 20 Monegasque routine three-way to a 22 Monegasque Onel hematuria Couvelaire catheter. Bladder was aggressively irrigated and a small amount of fresh clot was returned but it did not appear to be a large amount obstructing. The amount of bleeding though appeared to be relatively brisk. After clearing the clots he was started on CBI again and his urine still remained red. Clinically it looks as though he has a small arterial bleeder that is not responding well to conservative management I recommended we take him back to the operating room for clot evacuation and fulguration. Reviewed status with the patient and his expressed understanding and agreement to proceed. Informed consent was obtained
[2022-08-07] MEDS: morphine 4 mg/mL SDV 1 mL 2 MG IVP ×3 (17:52→22:25)
[2022-08-07] MEDS: lidocaine 2% Urojet 20 mL TOPICAL (17:56)
[2022-08-07] MEDS: docusate sodium 100 mg Capsule PO (18:25)
--- NOTE | 2022-08-07 18:58 | PC.NURSE ---
PATIENT HAS DONE WELL MOST OF THE DAY. PATIENT REQUIRED CBI EARLY AFTERNOON AND URINE LIGHTENED UP. PATIENT HAD AROUND 16116VL OF IRRIGATION IN AND ABOUT 78759 OUT. PATIENT BEGAN TO HAVE MORE FREQUENT BLADDER SPASMS. PYRIDIUM STARTED. AROUND 1630 THIS NURSE NOTICED PATIENT WAS NOT DRAINING WELL. MANUAL IRRIGATION WAS PERFORMED AND A FEW CLOTS RECEIVED. DR. STAFFORD CAME TO THE FLOOR TO ROUND ON PATIENT AND CHANGED OUT 3WAY CATHETER TO A LARGER MOHAWK, MANUAL IRRIGATION, AND MONITOR. PATIENT CONTINUED TO HAVE PERSISTENT HEMATURIA. DR. STAFFORD DECIDED TO TAKE PATIENT BACK TO THE OR. LEÓN BEAR JUST PICKED UP PATIENT. PATIENT OFF THE FLOOR AT THIS TIME.
--- NOTE | 2022-08-07 19:13 | PM.OP ---
Operative Report Date of procedure: August 07, 2022 Pre-op diagnosis: Post TURBT delayed bleeding with clot retention Post-op diagnosis: Post TURBT delayed bleeding with clot retention Procedure done: Cystoscopy, clot evacuation and fulguration of bleeding Specimens removed/disposition: None Surgeon: Lianet Estimated blood loss: Estimated 800 cc Urine output: Not measured Complications: None Findings: Anesthesia: General Condition: Stable Disposition: PACU Intraoperative findings: Exposed blood vessel at the base of the resection which was actively bleeding. Able to control the bleeding with extensive cautery. No other significant bleeding sites. Only a few small oozing areas of no concern that were fulgurated. Brief History: Mr. Dudley is a delightful 66-year-old white male recently diagnosed with bladder cancer and was admitted today through Outpatient Surgery for TURBT multiple bladder tumors aggregate of >5 cm. Procedure went very well. Postoperatively his urine was clear enough to not start CBI. He maintained this clarity until approximately 4 hours postop when he had fairly abrupt onset of significant hematuria. Bladder irrigation along with CBI was initiated but failed to show significant improvement in the risk hematuria and for that reason it was recommended he go emergently to the operating room for clot evacuation, examination of bladder and Anticipate and fulguration of active bleeding. Procedure: After emergent evaluation examination and obtaining of informed consent he was taken to the operating suite on 08/07/2022 where general anesthesia was administered without difficulty. Prepped and draped in usual sterile fashion in dorsolithotomy position paying careful attention to voiding pressure points. 25 Cymraes cystoscope was passed into a well-lubricated urethra and into the bladder; initially sterile water was utilized. Clot was evacuated with an [employer] evacuator the bladder was carefully inspected. The area of bleeding was obviously coming from the base of the large tumor that was resected. Bleeding was rather brisk and coming from a blood vessel that was exposed in the base. I took quite a bit of fulguration but eventually was completely controlled with no active bleeding. Several other small sites had some minimal oozing and these were also fulgurated. It appeared that there might have been an extension of the diameter of the resection site suspicious for partial thickness tear probably related to combination of initial bladder spasms that seem to be ongoing immediately postop well before any bleeding started about 4 hours postop. After hemostasis was obtained the area was carefully watched for almost 45 minutes both with fluid running and with the bladder empty with some suprapubic pressure applied to the bladder. It remained hemostatic throughout. The bladder was then drained with a 24 Cymraes 3-way latex catheter with 10 cc placed in the balloon. Fluid drainage was clear. And remained so. The procedure was completed. CBI was continued immediately postop and the output from the catheter was watched very closely as the patient will was awakened. He did have a lot of coughing and straining and tightening of his abdomen but with no active bleeding in response to that. That was reassuring. He was transferred to an ICU bed and then brought over to the ICU in stable condition. Prolonged conversation had with the patient's family explaining what was found in the concerns that it could happen again but under some awakening stress there was no active bleeding elicited Given the findings it was clear that this would not have been managed well with CBI alone Plans: 1. Admit to ICU for close observation. 2. Consult hospitalist service (Dr. Bethea contacted) for medical management. 3. We will place him on inpatient status for close observation. 4. Reviewed that if he had significant rebleeding he might require an open repair via cystotomy and oversew of the bleeding area internally. Certainly given his diagnosis of bladder cancer that is to be avoided at all costs if possible. 5. Run CBI at a low rate.
[2022-08-07] MEDS: sodium chloride 0.9% 1,000 ML 30 ML IV (19:17)
--- NOTE | 2022-08-07 19:19 | P.ANESUD_ITS ---
Pre-Anesthetic Update Pre-Anesthetic Assessment: Date of Surgery/Procedure: 08/07/22 Preop Steph gnosis: Newly diagnosed bladder cancer Proposed Procedure: Operation Date: 08/07/22 09:10 Proposed Procedures s CYSTOSCOPY TRANSURETHRAL RESECTION BLADDER TUMORS 32555,D49.4(Not Applicable) - Luis A Martini MD p CYSTOSCOPY TRANSURETHRAL RESECTION BLADDER TUMORS 59527,D49.4(Not Applicable) - Luis A Martini MD Operation Date: 08/07/22 13:50 Proposed Procedures p Clot Evacuation Fulguration(Not Applicable) - Luis A Martini MD Any changes to Pre-Anesthetic Assessment?: No Last Intake: Patient ate a few bites of asparagus, potatoes, and 1 biscuit at around noon - Light meal 6 hrs NPO Intake Last Liquid Date 08/06/22 Last Liquid Time 17:00 Last Solid Date 08/06/22 Last Solid Time 13:00 Labs Last 48hrs: Short CBC 08/07/22 Range/Units 08:00 WBC 8.2 (4.0-10.0) 10^3/ uL Hgb 14.1 (11.7-16.6) g/dL Hct 42.3 (42.0-52.0) % MCV 91.4 (80-94) fl Plt Count 119 L (130-400) 10^3/c mm Neut % (Auto) 59.3 % Neut # (Auto) 4.88 (1.8-7.7) 10^3/u L BMP 08/07/22 08:00 Sodium 134 L Potassium 4.5 Chloride 100 Carbon Dioxide 25 BUN 14 Creatinine 0.7 Glucose 116 H Calcium 8.9 Liver Function 08/07/22 Range/Units 08:00 Total Bilirubin 0.5 (0.15-1.2) mg/dL AST 29 (0-40) U/L ALT 26 (0-41) U/L Alkaline Phosphata se 86 (40-130) U/L Albumin 4.4 (3.5-5.2) g/dL Vitals: Temperature 98 F 08/07/22 16:00 Temperature Source Temporal Artery S can 08/07/22 10:43 Pulse Rate 80 08/07/22 19:13 Respiratory Rate 18 08/07/22 19:13 Respiratory Effort Non-Labored 08/07/22 12:22 Respiratory Depth Normal 08/07/22 12:22 Respiratory Patter n 08/07/22 12:22 Blood Pressure 152/87 08/07/22 19:13 Blood Pressure Ros n 108 08/07/22 19:13 Pulse Oximetry 93 08/07/22 19:13 Oxygen Delivery Me thod 08/07/22 19:13 Oxygen Flow Rate 10 08/07/22 10:43 Exam: Pre-Anes Outpt Exam: alert, oriented x 3, clear to auscultation bilater ally and regular rate & rhythm Cardiac Studies: Echocardiogram Ultrasound 11/21/20 Sestamibi Stress Test (Cardiology) 12/27 Holter Monitor 01/24/21
--- NOTE | 2022-08-07 21:00 | PC.NURSE ---
Pt arrived from PACU to ICU @2043 on continuos monitoring, 10L oxy mask, and CBI. Pt is reporting 8/10 pain. Continuos monitoring continued.
--- NOTE | 2022-08-07 21:03 | XRR_ITS ---
PROCEDURE INFORMATION: Exam: XR Chest Exam date and time: 08/07/2022 9:07 PM Age: 66 years old Clinical indication: Shortness of breath; Additional info: Aspiration TECHNIQUE: Imaging protocol: Radiologic exam of the chest. Views: 1 view. COMPARISON: CT chest [facility] [id number] 08/16/2020 1:50 PM FINDINGS: Lungs: There is a hazy infiltrate in the left lower lobe retrocardiac region. Pleural spaces: Unremarkable. No pleural effusion. No pneumothorax. Heart/Mediastinum: Unremarkable. No cardiomegaly. Bones/joints: Unremarkable. XR/XR chest 1V portable [id number] IMPRESSION: Left lower lobe infiltrate
[2022-08-07 21:11] LABS: Basophils % 0.3 %; Hemoglobin 13.1 g/dL (11.7-16.6); Lymphocytes # 0.8 10^3/uL (0.8-4.8); Lymphocytes % 6.1 %; Mean Corpuscular Hemoglobin 30.1 pg (28.0-34.0); Mean Corpuscular Volume 94.3 fl (80-94); Mean Platelet Volume 10.6 fL (7.4-10.4); Monocytes # 0.6 10^3/uL (0.2-0.9); Monocytes % 4.7 %; Neutrophils % 87.3 %; Nucleated Red Blood Cells % 0.2 %; Platelet Count 122 10^3/cmm (130-400); Red Blood Count 4.35 10^6/uL (4.1-5.3); Red Cell Distribution Width 17.2 % (12.1-15.1); White Blood Count 13.3 10^3/uL (4.0-10.0)
[2022-08-07 21:26] LABS: Alanine Aminotransferase 22 U/L (0-41); Albumin Level 4.2 g/dL (3.5-5.2); Alkaline Phosphatase 79 U/L (40-130); Anion Gap 15.4 (5-19); Aspartate Amino Transferase 20 U/L (0-40); Blood Urea Nitrogen 12 mg/dL (8-23); Calcium 8.1 mg/dL (8.5-10.5); Carbon Dioxide 21 mmol/L (22-29); Chloride 100 mmol/L (98-107); Globulin 2.5 g/dL (1.3-4.6); Glomerular Filtration Rate 96.7 mL/min (90-130); Glucose 138 mg/dL (65-115); Osmolality Calculated 276 mOsm/kg (285-295); Potassium 4.4 mmol/L (3.5-5.1); Sodium 132 mmol/L (136-145); Total Bilirubin 0.4 mg/dL (0.15-1.2); Total Protein 6.7 g/dL (6.6-8.7)
--- NOTE | 2022-08-07 21:32 | PM.CONSULT ---
Providers/Reason For Consult Consulting Physician/Specialty*: urology Reason for Consult*: wheezing, bleeding Attending Physician: Luis A Martini MD Primary Care Provider: NAKUL Evans History of Present Illness History of Present Illness Geovanni Dudley is a 66 year old male with a past medical history of CAD status post stenting in 2007, history of COPD, history of smoking, abdominal aortic aneurysm, hypertension, dyslipidemia who underwent cystoscopy and transurethral section of bladder tumor by Dr. Martini, postoperatively patient's to develop bloody urine, catheter irrigated with CBI, however continued to have hematuria with clots, take him to the OR for cystoscopy and clot evacuation and fulguration of bleeding. Hospitalist team was called for medical management as patient has some wheezing, requiring 6 L postoperatively, currently in the ICU, on 6 L, blood pressure 154/80, pulse 70 temperature 98.3, is alert oriented x3, he does complain of some shortness of breath, but has no other complaints. No chest pain, no palpitations, no lightheadedness, dizziness. Review of Systems Const: Denies: fever(s) Card: Denies: chest pain Resp: Reports: dyspnea GI: Denies: abdominal pain : Reports: hematuria Medications/Allergies Home Medications Medication Instructions Recorded Confirmed Last Taken Type nitroglycerin 0.4 mg sublingual 0.4 mg sublingual Q5M PRN chest 05/26/20 07/31/22 Unknown Rx tablet pain #25 tabs albuterol sulfate 90 mcg/actuation 2 puff inhalation 6XD PRN 09/13/20 08/07/22 08/07/22 Rx aerosol inhaler shortness of breath or wheezing 30 days #18 grams pantoprazole 40 mg tablet,delayed 40 mg PO DAILY #30 tabs 07/30/21 08/07/22 06/23/22 Rx release (Protonix) aspirin 81 mg tablet,delayed 81 mg PO DAILY 07/25/22 08/07/22 08/02/22 History release atorvastatin 40 mg tablet 40 mg PO DAILY #90 tabs 08/06/22 08/07/22 08/07/22 Rx isosorbide mononitrate 30 mg 30 mg PO DAILY #90 tabs 08/06/22 08/07/22 06/23/22 Rx tablet,extended release 24 hr spironolactone 25 mg tablet 25 mg PO DAILY #90 tabs 08/06/22 08/07/22 06/23/22 Rx Allergies Allergy/AdvReac Type Severity Reaction Status Date / Time No Known Allergies Allergy Verified 08/06/22 09:31 Current Medications Generic Name Dose Route Start Last Admin Trade Name Freq PRN Reason Stop Dose Admin Hydrocodone Bitart/Acetaminophen 1 tab 08/07/22 12:20 08/07/22 18:25 Hydrocodone-Acetaminophen 5-325 Mg Tablet PO 1 tab Q6H PRN Administration MODERATE PAIN Docusate Sodium 100 mg 08/07/22 18:00 08/07/22 18:25 Docusate Sodium 100 Mg Capsule PO 100 mg BID MARY Administration Potassium Chloride/Dextrose/Sod Cl 20 meq in 1,000 mls @ 50 mls/hr 08/07/22 12:20 08/07/22 12:37 D5-Ns 0.45% + Kcl 20 Meq IV 50 mls/hr .Q20H MARY Administration Sodium Chloride 1,000 mls @ 30 mls/hr 08/07/22 19:15 08/07/22 19:17 Sodium Chloride 0.9% IV 08/08/22 19:14 30 mls/hr .Q24H MARY Administration Morphine Sulfate 2 mg 08/07/22 20:57 08/07/22 21:07 Morphine 4 Mg/Ml Sdv 1 Ml IVP 2 mg Q1H PRN Administration SEVERE PAIN Phenazopyridine HCl 200 mg 08/07/22 13:03 08/07/22 14:33 Phenazopyridine 100 Mg Tablet PO 200 mg TID PRN Administration DYSURIA PFSH Acute PFSH: Medical History Abdominal aortic aneurysm CAD (coronary artery disease) COPD (chronic obstructive pulmonary disease) Dyslipidemia HTN (hypertension) Smoker Surgical History History of cholecystectomy S/P coronary artery stent placement Family History Mother , AT AGE 64 Heart attack Father , AT AGE 66 Cancer LUNG Other CAD (coronary artery disease) Social History Smoking and tobacco status: current every day smoker (1ppd) cigarettes Packs smoked per day: 2 Years cigarettes smoked: 53 [ Other cigarette details: started at age 13 years] Smoking risk assessment/counseling performed?: Yes Alcohol intake: current Alcohol intake frequency: few times a week Alcohol type: beer Counseling given: Yes Counseling given: No Lives independently: Yes Household members: spouse Marital status: Current occupational status: disabled History of recent travel: No Current gender identity: Male Vitals/I&O/Wt Last Vital Signs Temp 98.3 F 08/07/22 19:13 Pulse 70 08/07/22 19:13 Resp 16 08/07/22 21:07 BP 154/80 08/07/22 19:13 Pulse Ox 98 08/07/22 21:07 O2 Del Method 08/07/22 19:13 O2 Flow Rate 10 08/07/22 10:43 08/07/22 08/07/22 08/07/22 06:59 14:59 22:59 Intake Total 910 / 910 Output Total 1850 / 1855 Balance 905 / 905 -1850 / -945 Physical Exam Const: COMMON NORMALS: no acute distress and patient oriented x3 HENMT: COMMON NORMALS: normocephalic HEAD & SCALP: normocephalic Eye: COMMON NORMALS: Equal, round and reactive pupils present and EOMs intact bilaterally PUPIL: Yes Equal, round and reactive pupils present Neck/C-Spine: COMMON NORMALS: no JVD Resp: COMMON NORMALS: normal respiratory effort, No retractions and No use of accessory muscles AUSCULTATION: wheezes Cardio: COMMON NORMALS: no JVD, regular rate, regular rhythm, S1 normal heart sound present and S2 normal heart sound present RATE: regular rate RHYTHM: regular rhythm HEART SOUNDS: S1 normal heart sound present and S2 normal heart sound present GI: COMMON NORMALS: Normal to inspection, nondistended, normoactive bowel sounds present, Soft to palpation, non-tender, no masses and no bruits PALPATION: Yes Soft to palpation Extremity: COMMON NORMALS: no calf tenderness and no pedal edema Neuro: COMMON NORMALS: patient oriented x3, CN's II-XII intact bilaterally and moves all extremities Psych: COMMON NORMALS: mental status grossly normal Urinary Catheter Management: 3-way Urethral CBI Latex: Cath Placed During This Visit: yes Urinary Catheter Date of Insertion: 08/07/22 Urinary Catheter Time of Insertion: 10:27 Data 08/07/22 20:56 08/07/22 20:56 A&P Assessment and plan (1) HTN (hypertension): Qualifiers: Hypertension type: essential hypertension Qualified Code(s): I10 - Essential (primary) hypertension (2) Dyslipidemia: (3) Ischemic cardiomyopathy: (4) COPD (chronic obstructive pulmonary disease): Qualifiers: COPD type: unspecified COPD Qualified Code(s): J44.9 - Chronic obstructive pulmonary disease, unspecified (5) COPD exacerbation: (6) History of transurethral resection of bladder tumor (TURBT): Plan Status post transurethral resection of bladder tumor, with a delayed bleeding with clot retention, status post clot evacuation and fulguration of bleeding -We will monitor in ICU, monitor hemodynamics, monitor for hematuria -Monitor hemoglobin -Avoid blood thinners, for at least 24 hours -Hold aspirin COPD exacerbation -Has some wheezing on exam, chest x-ray, Solu-Medrol, prednisone, ipratropium, budesonide -There was concerns for possible aspiration postoperatively, will place on Augmentin -Full code -SCDs for DVT prophylaxis Consult Attestations Medical Necessity Statement: Patient requires hospitalization for postoperative bleeding, COPD exacerbation Coding Level of Care Code Acute 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
[2022-08-07] MEDS: oxybutynin chloride XL 5 MG TABLET 10 MG PO (21:50)
[2022-08-07 22:11] LABS: INR 1.06 (0.8-1.2)
[2022-08-08] VITALS (25 sets, daily range): BP systolic 124–152; BP diastolic 51–79; PULSE 54–69; RESP 16–18; TEMP 36.4–37.2; O2SAT 89–94
[2022-08-08] MEDS: dextrose 5%-sod chloride 0.9% 1,000 ML 50 ML IV ×2 (01:14→19:46)
[2022-08-08] MEDS: morphine 4 mg/mL SDV 1 mL 2 MG IVP (01:15)
--- NOTE | 2022-08-08 06:38 | PC.NURSE ---
CBI Shift Summary: Assumed Care of @204308/07/22 Intake: 18,000 Output: 20,545 -Throughout most of the shift urine has appeared clear and pale yellow to bright yellow -1 small clot noted in Serrano bag @0630, output at this time was a light pink color, intake was titrated up -Pt reported pain 3 times, IVP Morphine given (see MAR)
--- NOTE | 2022-08-08 06:44 | ANE.PACU2 ---
Inpatient post-anesthesia follow up: Airway intact: Yes Vital signs: Temperature 98.9 F Pulse Rate 57 Respiratory Rate 18 Blood Pressure 134/75 Pulse Oximetry 91 Oxygen Delivery Me thod Nasal Cannula Oxygen Flow Rate 2 Fraction of Inspir ed Oxygen Hydration adequate: Yes Nausea and vomiting: No Pain level: 1 Mental status: Baseline Additional Comments: Informed patient of michael-extubation vomiting and possiblity of development of aspiration pneumonia. Educated patient to look out for signs of pneumonia, such as SOB, malaise, fever.
--- NOTE | 2022-08-08 06:45 | PM.MISC ---
Miscellaneous Note Note: Shortly after extubation, patient coughed and vomited. Vomitus was moderate in volume and bright yellow/orange bile, watery and of even consistency. Of note, no food particles or chunks noted in vomitus. Patient was immediately suctioned and promptly placed in Left lateral decubitus position, in case of further vomiting. After patient indicated he was ready to be layed back flat, he was returned to recumbent position and transferred to ICU on simple mask. Portable CXR obtained as baseline to evaluate for any interval changes in event of development of aspiration pneumonia. Today patient O2 sat is above 90% on 1 L NC, states he feels no shortness of breath, no malaise. No fevers noted. WBC 13 this a.m.
--- NOTE | 2022-08-08 08:08 | PM.PN ---
Subjective Subjective: Urology postop day #1: TURBT, return to the OR for clot retention and active bleeding Has done well overnight following the clot evacuation and fulguration of active bleeding vessel at the resection site. CBI has been running at a low rate with urine staying clear and mostly yellow. Labs shows that he is not anemic. Creatinine is 0.8 He is feeling much better. Decrease bladder spasms. Reviewed again with the family and the patient the findings and events of last night and how it is important to progress slowly to make sure that we reduce the risk of recurrent bleeding and that he is safe with marked reduction in chance of rebleeding at discharge Will cover with antibiotics given the multiple instrumentations and significant risk associated with UTI with his underlying status. Vitals/I&O/Wt Last Vital Signs Temp 98.9 F 08/08/22 00:57 Pulse 56 L 08/08/22 07:00 Resp 18 08/07/22 22:25 BP 124/70 08/08/22 07:00 Pulse Ox 91 08/08/22 07:00 O2 Del Method 08/07/22 23:57 O2 Flow Rate 2 08/07/22 23:57 08/07/22 08/08/22 08/08/22 22:59 06:59 14:59 Intake Total 100 / 1010 Output Total 1900 / 1900 Balance 100 / 1005 -1900 / -1900 Physical Exam Const: COMMON NORMALS: no acute distress Chest: OTHER: Normal movements Resp: OTHER: Unlabored. Some wheezing Cardio: COMMON NORMALS: regular rhythm RHYTHM: regular rhythm GI: OTHER: Soft, no distention : OTHER: Urine clear Neuro: OTHER: Nonfocal Psych: OTHER: Clear mental status. Urinary Catheter Management: 3-way Urethral CBI Latex: Cath Placed During This Visit: yes Reason for Continuing Indwelling Catheter: Accurate Measurement of Urinary Output in Critically Ill Patients Urinary Catheter Date of Insertion: 08/07/22 Urinary Catheter Time of Insertion: 10:27 Data 08/07/22 20:56 08/07/22 20:56 A&P Assessment and plan (1) Postoperative hemorrhage: Doing well. See HPI (2) Bladder cancer: Pathology report pending (3) Smoker: (4) History of transurethral resection of bladder tumor (TURBT): (5) COPD (chronic obstructive pulmonary disease): Qualifiers: COPD type: unspecified COPD Qualified Code(s): J44.9 - Chronic obstructive pulmonary disease, unspecified Plan 1. Transfer to the floor 2. Continue CBI 3. Cancel mitomycin based on the events of last night 4. Cover with antibiotics 5. Close observation, limited activity Attestations Medical Necessity Statement*: Requires close observation due to fairly significant risk of rebleeding given the findings intraoperatively. We will continue CBI. 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
[2022-08-08] MEDS: oxybutynin chloride XL 5 MG TABLET 10 MG PO (08:13)
[2022-08-08] MEDS: amoxicillin-clav 875-125 mg Tablet 1 TAB PO ×2 (08:13→17:48)
[2022-08-08] MEDS: docusate sodium 100 mg Capsule PO ×2 (08:13→17:48)
[2022-08-08] MEDS: predniSONE 20 mg Tablet 40 MG PO (08:13)
[2022-08-08] MEDS: pantoprazole DR 40 mg Tablet PO (08:14)
[2022-08-08] MEDS: lidocaine 2% Urojet 20 mL XX (08:14)
[2022-08-08] MEDS: spironolactone 25 mg Tablet PO (08:14)
[2022-08-08] MEDS: isosorbide mononitrate ER 30 mg Tablet PO (08:14)
[2022-08-08] MEDS: atorvastatin 40 mg Tablet PO (08:14)
[2022-08-08 08:42] LABS: Basophils % 0.1 %; Eosinophils % 0.1 %; Hematocrit 39.3 % (42.0-52.0); Lymphocytes # 0.9 10^3/uL (0.8-4.8); Lymphocytes % 5.8 %; Mean Corpuscular HGB Conc 33.1 g/dL (30.0-36.0); Mean Corpuscular Hemoglobin 30.6 pg (28.0-34.0); Mean Corpuscular Volume 92.5 fl (80-94); Mean Platelet Volume 11.4 fL (7.4-10.4); Monocytes # 0.3 10^3/uL (0.2-0.9); Monocytes % 2.1 %; Neutrophils # 13.26 10^3/uL (1.8-7.7); Neutrophils % 90.7 %; Nucleated Red Blood Cells % 0 %; Platelet Count 125 10^3/cmm (130-400); Red Blood Count 4.25 10^6/uL (4.1-5.3); Red Cell Distribution Width 17.5 % (12.1-15.1); White Blood Count 14.6 10^3/uL (4.0-10.0)
--- NOTE | 2022-08-08 08:56 | PM.PN ---
Subjective Subjective: No overnight events Hemodynamically stable Urine color has improved Dr. Martini to see him today Vitals/I&O/Wt Last Vital Signs Temp 98.9 F 08/08/22 00:57 Pulse 58 L 08/08/22 07:30 Resp 18 08/07/22 22:25 BP 148/75 08/08/22 08:00 Pulse Ox 93 08/08/22 08:00 O2 Del Method 08/07/22 23:57 O2 Flow Rate 2 08/07/22 23:57 08/07/22 08/08/22 08/08/22 22:59 06:59 14:59 Intake Total 100 / 1010 Output Total 1900 / 1900 Balance 100 / 1005 -1900 / -1900 Physical Exam Narrative: Patient is requiring 2 L of oxygen After signs of wheezing Mild crackles at the base of the lungs S1, S2 Bradycardia Hemodynamically stable Awake and alert, nonfocal neuro exam Urinary Catheter Management: 3-way Urethral CBI Latex: Cath Placed During This Visit: yes Reason for Continuing Indwelling Catheter: Accurate Measurement of Urinary Output in Critically Ill Patients Urinary Catheter Date of Insertion: 08/07/22 Urinary Catheter Time of Insertion: 10:27 Data 08/08/22 08:11 08/07/22 20:56 A&P Assessment and plan (1) Smoker: (2) HTN (hypertension): Qualifiers: Hypertension type: essential hypertension Qualified Code(s): I10 - Essential (primary) hypertension (3) Dyslipidemia: (4) Impaired glucose tolerance: (5) Ischemic cardiomyopathy: (6) COPD (chronic obstructive pulmonary disease): Qualifiers: COPD type: unspecified COPD Qualified Code(s): J44.9 - Chronic obstructive pulmonary disease, unspecified (7) Bradycardia: (8) Gross hematuria: (9) History of transurethral resection of bladder tumor (TURBT): (10) Postoperative hemorrhage: Plan Postop day 1 status post TURB Postoperative hematuria has improved Patient is not showing signs of hemodynamic instability hemoglobin has remained stable He can be transferred out of ICU to [facility] is to monitor him 1 more day DVT prophylaxis SCDs Empirical antibiotic coverage as per Dr. Martini Continue CBI Patient has mild signs of wheezing currently requiring 2 L of oxygen Mild COPD exacerbation Concern for aspiration pneumonitis, afebrile, no need to add Augmentin for now if he remains afebrile Budesonide Attestations Medical Necessity Statement*: As per Dr. Martini Critical Care Time: 15 Coding Level of Care Code Acute Motion Study Engineer for [facility] Fwd Diagnoses Smoker F17.200 HTN (hypertension) I10 Hypertension type: essential hypertension Dyslipidemia E78.5 Impaired glucose tolerance R73.02 Ischemic cardiomyopathy I25.5 COPD (chronic obstructive pulmonary disease) J44.9 COPD type: unspecified COPD Bradycardia R00.1 Gross hematuria R31.0 History of transurethral resection of bladder tumor (TURBT) Z98.890; Z86.03 Postoperative hemorrhage
[2022-08-08 09:07] LABS: Anion Gap 14.2 (5-19); Blood Urea Nitrogen 11 mg/dL (8-23); Calcium 9.5 mg/dL (8.5-10.5); Carbon Dioxide 24 mmol/L (22-29); Chloride 99 mmol/L (98-107); Glomerular Filtration Rate 84.4 mL/min (90-130); Glucose 166 mg/dL (65-115); Osmolality Calculated 279 mOsm/kg (285-295); Potassium 4.2 mmol/L (3.5-5.1); Sodium 133 mmol/L (136-145)
--- NOTE | 2022-08-08 09:56 | PC.NURSE ---
Patient transferred to [facility] at approximately 0945
--- NOTE | 2022-08-08 13:42 | PC.NURSE ---
pt feeling pressure bladder scan result 0
[2022-08-08] MEDS: ipratropium-albuterol 3 mL Neb INHALATION (18:10)
[2022-08-08] MEDS: budesonide 0.5 mg/2 mL Neb INHALATION (20:14)
[2022-08-09] VITALS (8 sets, daily range): BP systolic 148–156; BP diastolic 64–74; PULSE 53–69; RESP 16–18; TEMP 36.4–37.2; O2SAT 90–97
[2022-08-09 04:12] LABS: Basophils % 0.1 %; Hematocrit 33.5 % (42.0-52.0); Hemoglobin 11.1 g/dL (11.7-16.6); Lymphocytes # 1.6 10^3/uL (0.8-4.8); Lymphocytes % 9.4 %; Mean Corpuscular HGB Conc 33.1 g/dL (30.0-36.0); Mean Corpuscular Hemoglobin 31.4 pg (28.0-34.0); Mean Corpuscular Volume 94.6 fl (80-94); Monocytes # 0.9 10^3/uL (0.2-0.9); Monocytes % 5.1 %; Neutrophils # 14.14 10^3/uL (1.8-7.7); Neutrophils % 84.5 %; Nucleated Red Blood Cells % 0 %; Platelet Count 145 10^3/cmm (130-400); Red Blood Count 3.54 10^6/uL (4.1-5.3); Red Cell Distribution Width 18.2 % (12.1-15.1); White Blood Count 16.7 10^3/uL (4.0-10.0)
[2022-08-09 04:52] LABS: Blood Urea Nitrogen 17 mg/dL (8-23); Calcium 8.9 mg/dL (8.5-10.5); Carbon Dioxide 21 mmol/L (22-29); Chloride 101 mmol/L (98-107); Glomerular Filtration Rate 84.4 mL/min (90-130); Glucose 115 mg/dL (65-115); Osmolality Calculated 278 mOsm/kg (285-295); Sodium 133 mmol/L (136-145)
[2022-08-09 04:53] LABS: Anion Gap 14.9 (5-19); Potassium 3.9 mmol/L (3.5-5.1)
[2022-08-09] MEDS: phenazopyridine 100 mg Tablet 200 MG PO ×3 (06:17→23:03)
[2022-08-09] MEDS: budesonide 0.5 mg/2 mL Neb INHALATION ×2 (07:45→22:59)
[2022-08-09] MEDS: oxybutynin chloride XL 5 MG TABLET 10 MG PO (08:21)
[2022-08-09] MEDS: docusate sodium 100 mg Capsule PO ×3 (08:21→20:13)
[2022-08-09] MEDS: amoxicillin-clav 875-125 mg Tablet 1 TAB PO ×2 (08:21→17:24)
[2022-08-09] MEDS: spironolactone 25 mg Tablet PO (08:21)
[2022-08-09] MEDS: isosorbide mononitrate ER 30 mg Tablet PO (08:21)
[2022-08-09] MEDS: pantoprazole DR 40 mg Tablet PO (08:21)
[2022-08-09] MEDS: predniSONE 20 mg Tablet 40 MG PO (08:21)
[2022-08-09] MEDS: atorvastatin 40 mg Tablet PO (08:22)
--- NOTE | 2022-08-09 11:46 | PM.MISC ---
Miscellaneous Note Note: Afebrile Leukocytosis noted Patient is awake and alert Doing well on 2 L nasal cannula Hypertensive Urine color has improved Abdomen soft Awake and alert, nonfocal neuro exam Assessment and plan Aspiration pneumonia, he may continue 10 days of Augmentin Leukocytosis likely steroid-induced, he can be discharged home medical standpoint Will need home oxygen evaluation before discharge Hold aspirin for at least 1 week
[2022-08-09] MEDS: HYDROcodone-acetaminophen 5-325 mg Tablet 1 TAB PO ×2 (12:09→23:04)
--- NOTE | 2022-08-09 13:37 | PM.PN ---
Subjective Subjective: Urology follow-up: Postop day #2 TURBT and delayed clot evacuation for postop bleeding Urine has remained clear with CBI running at a low flow. Struggling with bladder spasms. Still having some wheezing. Denies chest pain. No bowel movement yet. Normally has a bowel movement after every meal since he had a cholecystectomy. Will work to try improve his bladder spasms today, initiate bowel movements, start ambulation in the morning and if does well discharge tomorrow with Serrano catheter in place for at least a week total. Medications: Reviewed: Yes Vitals/I&O/Wt Last Vital Signs Temp 98.6 F 08/09/22 11:33 Pulse 68 08/09/22 11:33 Resp 18 08/09/22 11:33 BP 152/71 08/09/22 11:33 Pulse Ox 96 08/09/22 11:33 O2 Del Method 08/09/22 11:33 O2 Flow Rate 2 08/09/22 11:33 08/08/22 08/09/22 08/09/22 22:59 06:59 14:59 Intake Total 3166.667 / 3286.667 540 / 540 Balance 3166.667 / 1386.667 540 / 540 Physical Exam Const: COMMON NORMALS: no acute distress GI: OTHER: Soft, no distention : OTHER: Urine clear Neuro: OTHER: Nonfocal Psych: ATTITUDE: Yes calm and Yes engaged INSIGHT: Good insight present (Psych) JUDGEMENT: Good judgement present (Psych) OTHER: Clear mental status. Urinary Catheter Management: 3-way Urethral CBI Latex: Cath Placed During This Visit: yes Reason for Continuing Indwelling Catheter: Perioperative Use in Selected Surgeries Urinary Catheter Date of Insertion: 08/07/22 Urinary Catheter Time of Insertion: 10:27 Data 08/09/22 03:56 08/09/22 03:56 A&P Assessment and plan (1) History of transurethral resection of bladder tumor (TURBT): (2) Acute constipation: (3) Bladder spasms: Still quite symptomatic. Increase OXYBUTYNIN Plan Continue CBI slow rate Focus on bladder spasms Focus on getting his bowels functioning better If continues to do well from a bleeding perspective will discharge home on 08/10/2022 with Serrano catheter in place Attestations Medical Necessity Statement*: Still requiring CBI. Tentatively planning for discharge 08/10/2022. Coding Level of Care Code Acute [employer] Worker for [employer] Fwd Exam Expanded Problem Focused Diagnoses History of transurethral resection of bladder tumor (TURBT) Z98.890; Z86.03 Acute constipation K59.00 Bladder spasms N32.89
[2022-08-09] MEDS: bisacodyl 10 mg Supp PR (13:47)
[2022-08-09] MEDS: oxybutynin 5 mg Tablet PO (13:47)
[2022-08-09] MEDS: polyethylene glycol 3350 Pkt 17 gm PO (17:24)
[2022-08-10 03:55] VITALS: BP 155/69; PULSE 45; RESP 16; TEMP 36.3; O2SAT 92
--- NOTE | 2022-08-10 07:50 | PM.DCS ---
Discharge Providers Date of Admission: 08/07/22 22:22 Date of Discharge: August 10, 2022 Attending Provider at Admission: Luis A Martini MD Attending Provider at Discharge: Luis A Martini MD Consults: Hospitalist service Primary Care Provider: NAKUL Evans Diagnoses at Discharge Discharge Diagnosis (1) Bladder cancer: Status: Acute (2) History of transurethral resection of bladder tumor (TURBT): Status: Acute (3) Postoperative hemorrhage: Status: Resolved (4) Bladder spasms: Status: Acute (5) Acute constipation: Status: Acute (6) Ischemic cardiomyopathy: Status: Acute (7) Impaired glucose tolerance: Status: Acute (8) HTN (hypertension): Status: Acute Qualifiers: Hypertension type: essential hypertension Qualified Code(s): I10 - Essential (primary) hypertension (9) COPD (chronic obstructive pulmonary disease): Status: Acute Qualifiers: COPD type: unspecified COPD Qualified Code(s): J44.9 - Chronic obstructive pulmonary disease, unspecified (10) Carotid stenosis, bilateral: Status: Acute (11) CAD (coronary artery disease): Status: Acute Reason for Visit Reason for Visit: D49.4 Hospital Course Hospital Course Patient was admitted on 08/07/2022 for TURBT of recently diagnosed TCC of the bladder and outpatient cystoscopy. Procedure went well. He had many tumors resected largest on left posterolateral bladder wall. He did great for about 4 hours postop but did have a lot of bladder spasms. At postop roughly 4 hours he developed acute onset of significant bleeding that required manual irrigation and CBI. Unfortunately did not improve substantially and he continued to bleed much more than would be expected. For that reason he was taken to the operating room on the night of his surgery where he is found to have significant venous bleeding at the base of the resection of the larger tumor. It was actually somewhat difficult to get completely cleared but ultimately was well controlled hemostatically with fulguration. Prior to cessation of the procedure he was watched for about 45 minutes under anesthesia to confirm persistent hemostasis. Postoperatively he did very well. He was managed on CBI for prophylaxis. He had a lot of bladder spasms that were aggressively managed with OXYBUTYNIN 15 mg ER. Pain was controlled with oral narcotics as needed. Hospital service was consulted for management of his other medical problems including his chronic COPD. VTE prophylaxis with compression hose was utilized in lieu of anticoagulants because of the significant risk of recurrent postoperative hematuria. By postop day #3 he was felt to be a reasonable candidate for further convalescence at home. We reviewed that he was still at risk for recurrent bleeding but with each passing day that risk decreases.. He was discharged on postop day #3 in stable condition with Serrano catheter in place and plans for removal of the catheter on 08/14/2022. Strict and explicit instructions on avoiding any lifting or straining, aggressively managing constipation, pushing fluids, and contacting me at any time if there is any concerns or questions were given. We discussed that he might have some difficulty with voiding postop and there would be a potential for replacing the catheter in the clinic on 08/14/2022 with a smaller catheter to avoid overdistention of the bladder and potential further injury. New medications at discharge included OXYBUTYNIN 15 mg ER daily with last dose on 08/12/2022, TAMSULOSIN 0.4 mg p.o. daily, Pyridium 200 mg p.o. 3 times daily as needed, Augmentin twice a day for 10 days based on increased risk of UTI from multiple instrumentations etc., Percocet 5/325 for postop pain. Encouraged him to return to the emergency department promptly for recurrent severe bleeding but that he may see some small amount of bleeding of no consequence. Physical Exam Const: COMMON NORMALS: no acute distress Resp: OTHER: O2 per nasal cannula GI: OTHER: Soft, no distention : OTHER: Urine clear Neuro: OTHER: Nonfocal Psych: ATTITUDE: Yes calm and Yes engaged MOOD & AFFECT: Yes euthymic mood THOUGHT CONTENT: Yes Normal thought content present INSIGHT: Good insight present (Psych) JUDGEMENT: Good judgement present (Psych) Urinary Catheter Management: 3-way Urethral CBI Latex: Cath Placed During This Visit: yes Reason for Continuing Indwelling Catheter: Other Urinary Catheter Date of Insertion: 08/07/22 Urinary Catheter Time of Insertion: 10:27 Discharge Data Studies Completed and Pending Completed Studies During Hospitalization Category Date Time Status XR chest 1V portable [id number] Routine Exams 08/07/22 21:03 Completed Pathology: Surgical [PTH] Routine Pth 08/07/22 10:35 Completed Radiology Impressions Chest X-Ray 08/07/22 21:03 IMPRESSION: Left lower lobe infiltrate Laboratory Results WBC 16.7 10^3/uL (4.0-10.0) H 08/09/22 03:56 RBC 3.54 10^6/uL (4.1-5.3) L 08/09/22 03:56 Hgb 11.1 g/dL (11.7-16.6) L 08/09/22 03:56 Hct 33.5 % (42.0-52.0) L 08/09/22 03:56 MCV 94.6 fl (80-94) H 08/09/22 03:56 MCH 31.4 pg (28.0-34.0) 08/09/22 03:56 MCHC 33.1 g/dL (30.0-36.0) 08/09/22 03:56 RDW 18.2 % (12.1-15.1) H 08/09/22 03:56 Plt Count 145 10^3/cmm (130-400) 08/09/22 03:56 MPV 11.0 fL (7.4-10.4) H 08/09/22 03:56 Neut % (Auto) 84.5 % 08/09/22 03:56 Lymph % (Auto) 9.4 % 08/09/22 03:56 [place] % (Auto) 5.1 % 08/09/22 03:56 Eos % (Auto) 0.0 % 08/09/22 03:56 Baso % (Auto) 0.1 % 08/09/22 03:56 Neut # (Auto) 14.14 10^3/uL (1.8-7.7) H 08/09/22 03:56 Lymph # (Auto) 1.6 10^3/uL (0.8-4.8) 08/09/22 03:56 [place] # (Auto) 0.9 10^3/uL (0.2-0.9) 08/09/22 03:56 Eos # (Auto) 0.0 10^3/uL (0.0-0.8) 08/09/22 03:56 Baso # (Auto) 0.0 10^3/uL (0.0-0.1) 08/09/22 03:56 Nucleated RBC % (auto) 0 % 08/09/22 03:56 Nucleated RBCs # 0.0 /100WBC 08/09/22 03:56 PT 14.10 SECONDS (12.1-14.9) 08/07/22 21:28 INR 1.06 (0.8-1.2) 08/07/22 21:28 Sodium 133 mmol/L (136-145) L 08/09/22 03:56 Potassium 3.9 mmol/L (3.5-5.1) 08/09/22 03:56 Chloride 101 mmol/L (98-107) 08/09/22 03:56 Carbon Dioxide 21 mmol/L (22-29) L 08/09/22 03:56 Anion Gap 14.9 (5-19) 08/09/22 03:56 BUN 17 mg/dL (8-23) 08/09/22 03:56 Creatinine 0.9 mg/dL (0.7-1.2) 08/09/22 03:56 GFR Calculation 84.4 mL/min (90-130) L 08/09/22 03:56 Glucose 115 mg/dL (65-115) 08/09/22 03:56 Calculated Osmolality 278 mOsm/kg (285-295) L 08/09/22 03:56 Calcium 8.9 mg/dL (8.5-10.5) 08/09/22 03:56 Total Bilirubin 0.4 mg/dL (0.15-1.2) 08/07/22 20:56 AST 20 U/L (0-40) 08/07/22 20:56 ALT 22 U/L (0-41) 08/07/22 20:56 Alkaline Phosphatase 79 U/L (40-130) 08/07/22 20:56 Total Protein 6.7 g/dL (6.6-8.7) 08/07/22 20:56 Albumin 4.2 g/dL (3.5-5.2) 08/07/22 20:56 Globulin 2.5 g/dL (1.3-4.6) 08/07/22 20:56 Procedures Performed 1. Cystoscopy, transurethral section of bladder tumor large 08/07/2022 2. Cystoscopy clot evacuation and fulguration (night of initial surgery) Vitals Last Vital Signs Temp 97.4 F L 08/10/22 03:55 Pulse 45 L 08/10/22 03:55 Resp 16 08/10/22 03:55 BP 155/69 08/10/22 03:55 Pulse Ox 92 08/10/22 03:55 O2 Del Method 08/10/22 03:55 O2 Flow Rate 2 08/09/22 15:45 Discharge Plan Discharge Patient Disposition: Home Condition: Stable Prescriptions: New Pyridium 200 mg tablet 200 mg PO Q8H PRN (Reason: pain) Qty: 3 0RF tamsulosin 0.4 mg capsule 0.4 mg PO DAILY Qty: 30 5RF Augmentin 500-125 mg tablet 1 tab PO BID Qty: 30 0RF oxybutynin chloride 15 mg tablet extended release 24hr 15 mg PO DAILY Qty: 3 0RF hydrocodone-acetaminophen 5-325 mg tablet 1 tab PO Q8H PRN (Reason: pain) Qty: 18 0RF Continued nitroglycerin 0.4 mg tablet, sublingual 0.4 mg SUBLINGUAL Q5M PRN (Reason: chest pain) Qty: 25 6RF Rx Instructions: until response; do not exceed 3 doses per episode albuterol sulfate 90 mcg/actuation HFA aerosol inhaler 2 puff inhalation 6XD PRN (Reason: shortness of breath or wheezing) 30 Days Qty: 18 3RF atorvastatin 40 mg tablet 40 mg PO DAILY Qty: 90 3RF isosorbide mononitrate 30 mg tablet extended release 24 hr 30 mg PO DAILY Qty: 90 3RF spironolactone 25 mg tablet 25 mg PO DAILY Qty: 90 3RF pantoprazole [Protonix] 40 mg tablet,delayed release (DR/EC) 40 mg PO DAILY Qty: 30 3RF Held aspirin 81 mg Tablet,Delayed Release (Dr/Ec) 81 mg PO DAILY Hold Instructions: Resume on 08/23/22. Discharge Orders: Discharge Order (Routine); Ordered 08/09/22 Ordered By: Mason Cleaning Referrals: Grant Larose, [facility] [Primary Care Provider] - Luis A Martini MD [Physician] - 08/14/22 (Voiding trial) Discharge Diet: Advance as tolerated Discharge Activity: Increase activity as tolerated and Limit activity as instructed Patient Instructions: Oxybutynin (By mouth), Phenazopyridine (By mouth), Oxycodone/Acetaminophen (By mouth), Amoxicillin/Clavulanate Potassium (By mouth) (Augmentin, Augmentin..., Tamsulosin (By mouth), Serrano Catheter Care, Urinary Leg Bag (GEN), Transurethral Resection of Bladder Tumors (GEN) Activity Restrictions/Additional Instructions: 1. The catheter needs to remain in until your office visit on 08/14/2022 to allow further healing of the bladder. The risk of taking it out too soon is a recurrence of significant bleeding. 2. Continue the OXYBUTYNIN ER 15 mg daily through 08/12/2021. Let that be your last dose so that it is out of your system by your office visit. The medicine by relaxing your bladder may make it harder for you to void when we do take the catheter out. 3. We will continue an antibiotic to reduce the risk of infection from multiple instrumentations irrigations etc. 4. You can expect to see some blood in your urine. If it becomes severe bleeding like it was in the hospital please return to the emergency department. It would be likely that surgery would be required either scope or possibly open repair. 5. Please avoid lifting anything >10 pounds. No straining. 6. Aggressively treat your constipation and prevent recurrence. This is very important. The oxybutynin and the pain medication will increase your likelihood of constipation so please stay ahead by treating the constipation and preventing with stool softeners, magnesium citrate, MiraLAX etc. as needed. 7. Continue your usual medications for your lungs etc. 8. You will also have a new prescription for TAMSULOSIN 0.4 mg orally daily. This will hopefully improve your voiding once the catheter is removed. 9. I have written a prescription for PYRIDIUM 200 mg 3 times a day as needed. It is the medicine that turns your urine orange. There is an rgpx-yba-qfezraj preparation called Azo Standard and you can take 2 of those pills 3 times a day to achieve the same effect if it is cheaper. Ask your pharmacist. 10. There will also be a prescription for pain medication (oxycodone/acetaminophen). You can use Tylenol instead if you are not having much pain. Discharge Attestations Time Spent in Discharge Care*: greater than 30 min Quality Metrics Clinical Quality Measures [ No reported AMI, CVA or VTE this stay] Coding Level of Care Code Acute [facility] note Diagnoses Bladder cancer C67.9 History of transurethral resection of bladder tumor (TURBT) Z98.890; Z86.03 Postoperative hemorrhage Bladder spasms N32.89 Acute constipation K59.00 Ischemic cardiomyopathy I25.5 Impaired glucose tolerance R73.02 HTN (hypertension) I10 Hypertension type: essential hypertension COPD (chronic obstructive pulmonary disease) J44.9 COPD type: unspecified COPD Carotid stenosis, bilateral I65.23 CAD (coronary artery disease) I25.10
[2022-08-10 08:00] VITALS: BP 136/63; PULSE 49; PULSE 65; RESP 16; RESP 18; TEMP 37.1; O2SAT 92
[2022-08-10] MEDS: docusate sodium 100 mg Capsule PO (08:37)
[2022-08-10] MEDS: isosorbide mononitrate ER 30 mg Tablet PO (08:37)
[2022-08-10] MEDS: predniSONE 20 mg Tablet 40 MG PO (08:37)
[2022-08-10] MEDS: spironolactone 25 mg Tablet PO (08:38)
[2022-08-10] MEDS: atorvastatin 40 mg Tablet PO (08:38)
[2022-08-10] MEDS: polyethylene glycol 3350 Pkt 17 gm PO (08:38)
[2022-08-10] MEDS: amoxicillin-clav 875-125 mg Tablet 1 TAB PO (08:38)
[2022-08-10] MEDS: bisacodyl 10 mg Supp PR (08:38)
[2022-08-10] MEDS: oxybutynin chloride XL 5 MG TABLET 15 MG PO (08:38)
[2022-08-10] MEDS: pantoprazole DR 40 mg Tablet PO (08:38)
[2022-08-10 08:56] VITALS: O2SAT 92; O2SAT 94
--- NOTE | 2022-08-10 11:04 | PC.SOCIAL ---
IMM update IMM updated with patient. Verbalized an understanding. Copy Pg 2 provided. Initialled, dated, timed, and placed in chart.
[2022-08-10 11:42] VITALS: BP 136/63; PULSE 49; RESP 18; TEMP 37.1; O2SAT 92
== END 2022-08-10 11:53 | disposition home or self-care (01) | DRG 662 ==
LOC: ICU 08-08 01:04 → CSU 08-08 07:25 → MEDSURG 08-08 07:25 → ICU 08-08 08:31 → MEDSURG 08-08 09:49
PROVIDERS: Family Medicine; Internal Medicine; Admitting Provider Urology; PCP Nurse Practitioner; Visit Provider Urology
PROC: 0TBB8ZZ Excision of Bladder, Via Natural or Artificial Opening Endoscopic (ICD-10-PCS; principal; 2022-08-07 09:10)
PROC: 0TJB8ZZ Inspection of Bladder, Via Natural or Artificial Opening Endoscopic (ICD-10-PCS; CPT 52000; 2022-08-07 09:10)
PROC: 0T5B8ZZ Destruction of Bladder, Via Natural or Artificial Opening Endoscopic (ICD-10-PCS; principal; 2022-08-07 13:30)
DX: C67.8 Malignant neoplasm of overlapping sites of bladder (principal); J69.0 Pneumonitis due to inhalation of food and vomit; J44.1 Chronic obstructive pulmonary disease with (acute) exacerbation; N99.820 Postprocedural hemorrhage of a genitourinary system organ or structure following a genitourinary system procedure; N32.89 Other specified disorders of bladder; K59.00 Constipation, unspecified; I25.5 Ischemic cardiomyopathy; R73.02 Impaired glucose tolerance (oral); I10 Essential (primary) hypertension; I65.29 Occlusion and stenosis of unspecified carotid artery; I25.10 Atherosclerotic heart disease of native coronary artery without angina pectoris; Z95.5 Presence of coronary angioplasty implant and graft; Z79.51 Long term (current) use of inhaled steroids; I71.40 Abdominal aortic aneurysm, without rupture, unspecified; E78.5 Hyperlipidemia, unspecified
CPT/HCPCS: 36415; 71045; 80048; 80053; 85025; 85610; 88305; 88307; 94640; 94664; 94760; 99214; J0330; J0360; J1100; J1956; J2250; J2270; J2370; J2405; J2704; J2710; J2920; J2930; J3010; J3490; J7030; J7042; J7512; J7626

== ENCOUNTER 2022-08-14 18:12 | Outpatient (CLI) | payer MEDICARE, MEDICAID, SELFPAY ==
[2022-08-14] VITALS (18 sets, daily range): BP systolic 94–149; BP diastolic 52–81; PULSE 65–78; RESP 15–25; TEMP 36.4–36.8; O2SAT 91–99; BMI 30.4
--- NOTE | 2022-08-14 13:45 | P.ANESASSM_ITS ---
Pre-Anesthetic Assessment Height/Weight: Height 1.75 m Weight 93.44 kg O2 Del Method 08/14/22 13:32 Preop Diagnosis: Newly diagnosed bladder cancer Operation Date: 08/14/22 13:50 Proposed Procedures s CYSTOSCOPY CLOT EVACUATION POSSIBLE OPEN REPAIR 31485 C67.9(Not Applicable) - Luis A Martini MD p Cystoscopy(Not Applicable) - Luis A Martini MD Familial anesthetic complications: none Was Beta Ki taken within 24 hours: N/A Was Clonidine taken within 24 hours: N/A Last intake: Intake Last Liquid Date 08/13/22 Last Liquid Time 21:00 Last Solid Date 08/13/22 Last Solid Time 21:00 Social Tobacco and No alcohol Exam alert, oriented x 3 and regular rate & rhythm Airway Submandibular: within normal limits Cervical ROM: within normal limits Mallampati: Class II Dentition: false Pulmonary Chronic Obstructive Pulmonary Disease and Exertional Dyspnea CV/HEM Anemia, Coronary Artery Disease, Hypertension and Peripheral Vascular Disease (AAA) CONCLUSION: 1. No significant EKG changes with the LexiScan infusion. 2. No LexiScan induced chest pain or cardiac arrhythmia. 3. Normal blood pressure and heart rate response. 4. Sestamibi/sestamibi perfusion scan pending; see separate report. Electronically Signed On 12-29-2019 14:32:39 CDT by Benita Lopez M.D. [email or web address] Anesthetic Plan ASA status: 3 Anesthesia: General Medications/Allergies Home Medications Medication Instructions Recorded Confirmed Last Taken Type nitroglycerin 0.4 mg sublingual 0.4 mg sublingual Q5M PRN chest 05/26/20 08/14/22 Unknown Rx tablet pain #25 tabs albuterol sulfate 90 mcg/actuation 2 puff inhalation 6XD PRN 09/13/20 08/14/22 08/07/22 Rx aerosol inhaler shortness of breath or wheezing 30 days #18 grams pantoprazole 40 mg tablet,delayed 40 mg PO DAILY #30 tabs 07/30/21 08/14/22 06/23/22 Rx release (Protonix) aspirin 81 mg tablet,delayed 81 mg PO DAILY 07/25/22 08/14/22 08/02/22 History release atorvastatin 40 mg tablet 40 mg PO DAILY #90 tabs 08/06/22 08/14/22 08/07/22 Rx isosorbide mononitrate 30 mg 30 mg PO DAILY #90 tabs 08/06/22 08/14/22 06/23/22 Rx tablet,extended release 24 hr spironolactone 25 mg tablet 25 mg PO DAILY #90 tabs 08/06/22 08/14/22 06/23/22 Rx amoxicillin 500 mg-potassium 1 tab PO BID #30 tabs 08/10/22 08/14/22 Unknown Rx clavulanate 125 mg tablet (Augmentin) hydrocodone 5 mg-acetaminophen 325 1 tab PO Q8H PRN pain #18 tabs 08/10/22 08/14/22 Unknown Rx mg tablet oxybutynin chloride 15 mg 15 mg PO DAILY #3 tabs 08/10/22 08/14/22 Unknown Rx tablet,extended release 24 hr phenazopyridine 200 mg tablet 200 mg PO Q8H PRN pain 6 doses #3 08/10/22 08/14/22 Unknown Rx (Pyridium) tabs tamsulosin 0.4 mg capsule 0.4 mg PO DAILY #30 caps 08/10/22 08/14/22 Unknown Rx Allergies Allergy/AdvReac Type Severity Reaction Status Date / Time No Known Allergies Allergy Verified 08/14/22 12:07 [facility] Anesthesia Medical History Abdominal aortic aneurysm CAD (coronary artery disease) COPD (chronic obstructive pulmonary disease) COPD exacerbation Dyslipidemia HTN (hypertension) Smoker Surgical History History of cholecystectomy History of transurethral resection of bladder tumor (TURBT) S/P coronary artery stent placement Family History Mother , AT AGE 64 Heart attack Father , AT AGE 66 Cancer LUNG Other CAD (coronary artery disease) Social History Smoking and tobacco status: current every day smoker (1ppd) cigarettes Packs smoked per day: 2 Years cigarettes smoked: 53 [ Other cigarette details: started at age 13 years] Smoking risk assessment/counseling performed?: Yes Alcohol intake: current Alcohol intake frequency: few times a week Alcohol type: beer Counseling given: Yes Counseling given: No Lives independently: Yes Household members: spouse Marital status: Current occupational status: disabled History of recent travel: No Current gender identity: Male Data Anesthesia Cardiac Studies: Echocardiogram Ultrasound 11/21/20 Sestamibi Stress Test (Cardiology) 12/27 Holter Monitor 01/24/21
--- NOTE | 2022-08-14 14:19 | W.PM.OPSUD ---
Surgery/Procedure H&P Update DATE OF PROCEDURE: August 14, 2022 DATE H&P PERFORMED: 08/14/22 CHANGES TO PREVIOUS DOCUMENTATION: Since leaving the clinic he has been hemodynamically stable. His hemoglobin came back at 13.7. No severe pain. Abdomen is soft without any distention. Plan will be to focus first on endoscopic clot evacuation fulguration with the hopes of avoiding entirely any open procedure. PREOP DIAGNOSIS: Newly diagnosed bladder cancer PLANNED PROCEDURE: Operation Date: 08/14/22 13:50 Proposed Procedures s CYSTOSCOPY CLOT EVACUATION POSSIBLE OPEN REPAIR 78879 C67.9(Not Applicable) - Luis A Martini MD p Cystoscopy(Not Applicable) - Luis A Martini MD
[2022-08-14 14:21] LABS: Hematocrit 39.4 % (42.0-52.0); Hemoglobin 13.3 g/dL (11.7-16.6); Mean Corpuscular HGB Conc 33.8 g/dL (30.0-36.0); Mean Corpuscular Hemoglobin 30.4 pg (28.0-34.0); Mean Corpuscular Volume 90.2 fl (80-94); Mean Platelet Volume 10.5 fL (7.4-10.4); Platelet Count 162 10^3/cmm (130-400); Red Blood Count 4.37 10^6/uL (4.1-5.3); Red Cell Distribution Width 17.2 % (12.1-15.1); White Blood Count 16.1 10^3/uL (4.0-10.0)
[2022-08-14] MEDS: ceFAZolin 2,000 MG in sodium chloride 0.9% (plus) 50 ML 100 MG IV (14:26)
[2022-08-14] MEDS: lidocaine 2% Urojet 20 mL TOPICAL (14:48)
[2022-08-14 14:56] LABS: Absolute Segmented Neutrophil 11.3 10/cmm (1.6-7.1); Eosinophils 0 %; Lymphocytes 21 %; Lymphocytes Absolute 3.5 10^3/cmm (1.2-3.4); Monocytes Absolute 0.5 10^3/cmm (0.1-0.6); Ovalocytes 1+; Segmented Neutrophils 70 %; Total Cells Counted 100 (0-100)
--- NOTE | 2022-08-14 15:11 | P.OP_ITS ---
Operative Report Date of procedure: August 14, 2022 Pre-op diagnosis: Postoperative bleeding from prior bladder tumor resection site Post-op diagnosis: Urethral hemorrhage spontaneously resolved, no bladder bleeding. Procedure done: 1. Cystoscopy clot evacuation Specimens removed/disposition: None Pathology: None Surgeon: Lianet Estimated blood loss: No active bleeding Urine output: Not measured Complications: None Findings: Anesthesia: General Condition: Stable Disposition: PACU Intraoperative findings: * The bladder had some small clots in it but nothing of any great concern. There was no active bleeding in the bladder. The previously identified site of bleeding (night of previous TURBT) was healing well with no active bleeding and showed significant contraction from its appearance that night. * The area of the active bleeding that occurred when the catheter was removed was felt to be urethral in origin, probably a scab dislodged with the catheter removal. The bleeding had stopped by the time I scoped him. No cautery was required. Brief History: Mr. Dudley is a delightful 66-year-old white male who was recently diagnosed with bladder cancer. Initially had an uneventful TURBT but 4 hours postop he developed acute onset of severe bleeding that failed to be adequately managed with CBI and manual irrigation. He was taken back to the operating room that night and was found to have a large venous blood vessel bleeding that was felt to be most likely intramural vasculature of the bladder. Initially it was somewhat difficult but ultimately completely hemostatic. He was observed in the hospital for 2 to 3 days postop and had no further bleeding. Was sent home with a large bore catheter with plans for maintaining the catheter for about a week for further healing before voiding trial in clinic. His urine remained clear while at home. He did have a lot of trouble with bladder spasms and catheter discomfort. At time of voiding trial about 100 cc was placed in his bladder and he spontaneously voided about 150 cc with a large fresh blood clot estimated about 75 cc. He was having continued dripping from his penis as well. Given his prior findings of the severe bleed postoperatively from his resection site the presumption was that this had not adequately healed despite the week of catheter and bladder rest. He was emergently taken to the operating room with plans for initial evaluation cystoscopically, fulguration of possible and potentially opening up with oversewing of the bladder bleeding site. Preoperatively he was hemodynamically stable, his hemoglobin was 13.7. He was having no severe pain. Belly was soft. Procedure: After emergent evaluation examination and obtaining of informed consent he was taken to the operating suite on 08/14/2022 where general anesthesia was administered without difficulty after appropriate timeout was performed, SCDs confirmed to be functioning, preoperative antibiotics administered, beta-sravani protocol confirmed. He had some blood at the meatus and some small clots there. His bladder did not feel distended on examination. He was prepped and draped in the usual sterile fashion with drapes extending onto the abdomen and prepping on the abdomen in case he had to be opened. 23 Ivorian cystoscope with 30 degree lens was introduced into the urethra meatus and into the bladder. The urethra showed a fairly excoriated area in the bulbar urethra with no active bleeding. The remainder of the urethra was normal. Prostate looked normal as well. Entry into the bladder revealed a few small clots but no active bleeding and no large clots. The bladder was carefully inspected and the previous area of significant concern was healing well with significant contraction from its appearance intraoperatively on the night of his TURBT the urethra was carefully reinspected and appeared to be the most likely site of the large blood clot that came out after catheter was removed during his voiding trial. There was no active bleeding demonstrated and for that reason it was decided to not leave the catheter in. He had had a very difficult time maintaining symptomatic control with the previous catheter He was awakened in the operating and returned to PACU in stable condition. Plans: 1. Observe overnight for adequate emptying. He still is at risk for bladder rebleeding if he does not empty his bladder well.. Frequent bladder scans in and out catheterization as needed. 2. Anticipate discharge tomorrow if no further untoward events
[2022-08-14 15:13] LABS: Alanine Aminotransferase 22 U/L (0-41); Albumin Level 4.6 g/dL (3.5-5.2); Alkaline Phosphatase 86 U/L (40-130); Anion Gap 19.4 (5-19); Aspartate Amino Transferase 18 U/L (0-40); Blood Urea Nitrogen 16 mg/dL (8-23); Calcium 9.4 mg/dL (8.5-10.5); Carbon Dioxide 22 mmol/L (22-29); Chloride 95 mmol/L (98-107); Globulin 3.1 g/dL (1.3-4.6); Glomerular Filtration Rate 112.8 mL/min (90-130); Glucose 108 mg/dL (65-115); Osmolality Calculated 276 mOsm/kg (285-295); Potassium 4.4 mmol/L (3.5-5.1); Sodium 132 mmol/L (136-145); Total Bilirubin 0.5 mg/dL (0.15-1.2); Total Protein 7.7 g/dL (6.6-8.7)
--- NOTE | 2022-08-14 15:52 | SUR.PHASEI ---
, Lakeshia updated on status of patient.
[2022-08-14 17:23] LABS: Absolute Neutrophil 11.3 10^3/cmm (1.4-6.5); Platelet Estimate Normal (Normal)
--- NOTE | 2022-08-14 17:27 | ANE.PACU2 ---
Inpatient post-anesthesia follow up: Airway intact: Yes Vital signs: Temperature 98.3 F Pulse Rate 74 Respiratory Rate 17 Blood Pressure 144/67 Pulse Oximetry 94 Oxygen Delivery Me thod Room Air Oxygen Flow Rate 7 Fraction of Inspir ed Oxygen Hydration adequate: Yes Nausea and vomiting: No Pain level: 2 Mental status: Baseline
[2022-08-14 19:22] LABS: INR 0.96 (0.8-1.2)
[2022-08-14] MEDS: amoxicillin-clav 500-125 mg Tablet 1 TAB PO (21:06)
[2022-08-14] MEDS: dextrose 5%-ns + KCl 20 20 MEQ/1,000 ML BAG 50 MEQ IV (21:07)
[2022-08-14] MEDS: phenazopyridine 100 mg Tablet 200 MG PO (21:07)
--- NOTE | 2022-08-14 22:43 | PC.NURSE ---
Post-void bladder scan [address] Martini noted. No new orders.
[2022-08-15] MEDS: phenazopyridine 100 mg Tablet 200 MG PO (03:30)
--- NOTE | 2022-08-15 03:38 | PC.NURSE ---
Post-void bladder scan 39 ml.
[2022-08-15 05:36] LABS: Basophils # 0.1 10^3/uL (0.0-0.1); Basophils % 0.4 %; Eosinophils # 0.1 10^3/uL (0.0-0.8); Eosinophils % 0.4 %; Hematocrit 37.6 % (42.0-52.0); Hemoglobin 12.3 g/dL (11.7-16.6); Lymphocytes # 1.9 10^3/uL (0.8-4.8); Lymphocytes % 13.8 %; Mean Corpuscular HGB Conc 32.7 g/dL (30.0-36.0); Mean Corpuscular Volume 91.7 fl (80-94); Mean Platelet Volume 10.6 fL (7.4-10.4); Monocytes # 0.8 10^3/uL (0.2-0.9); Monocytes % 5.6 %; Neutrophils # 10.34 10^3/uL (1.8-7.7); Neutrophils % 75.7 %; Nucleated Red Blood Cells % 0 %; Platelet Count 165 10^3/cmm (130-400); Red Cell Distribution Width 17.2 % (12.1-15.1); White Blood Count 13.7 10^3/uL (4.0-10.0)
[2022-08-15 06:05] LABS: Anion Gap 17.4 (5-19); Blood Urea Nitrogen 14 mg/dL (8-23); Carbon Dioxide 22 mmol/L (22-29); Chloride 101 mmol/L (98-107); Glomerular Filtration Rate 112.8 mL/min (90-130); Glucose 143 mg/dL (65-115); Osmolality Calculated 285 mOsm/kg (285-295); Potassium 4.4 mmol/L (3.5-5.1); Sodium 136 mmol/L (136-145)
--- NOTE | 2022-08-15 07:01 | P.DS_ITS ---
Discharge Providers Date of Admission: 08/14/22 18:12 Date of Discharge: August 15, 2022 Attending Provider at Admission: Luis A Martini MD Attending Provider at Discharge: Luis A Martini MD Consults: None Primary Care Provider: NAKUL Evans Diagnoses at Discharge Discharge Diagnosis (1) Urethral bleeding: Status: Acute (2) Bladder cancer: Status: Acute Reason for Visit Reason for Visit: C67.9 Brief History: Recurrent hematuria and patient with history of significant bleed post TURBT about a week prior. See HPI. In summary he has maintained a Serrano catheter for about a week post TURBT and follow-up fulguration clot evacuation on night of surgery for bleeding at the base of the resection. That bleeding was quite significant and could not be managed conservatively with CBI and manual irrigation. We decided to leave the catheter in for about a week in order to heal the area and then on the day of admission the Serrano catheter was removed and he had a immediate passage of a roughly 75 cc fresh clot. The presumption was that he was having recurrent bleeding within the bladder from the previous site and it was recommended he go to the operating room emergently for clot evacuation and fulguration. Hospital Course Hospital Course In the operating room it was discovered that the bleeding had most likely come from the urethra. Most likely at catheter removal a scab was broken loose which led to significant bleeding that by the time I taken to the operating room had spontaneously resolved. There is no evidence of any active bleeding within the bladder. Because of the lack of ongoing bleeding when the urethra was decided to not leave the catheter in to avoid further potential irritation. Because of the uncertainty though it was decided to observe him overnight to make sure that he was safe before discharge. He voided well and follow-up bladder scan showed that he was emptying well. He had no significant recurrent bleeding and he was discharged on postoperative day #1 following cystoscopy and clot evacuation. He was felt to be a good candidate for further convalescence at home Last bladder scan showed about 35 cc PVR Physical Exam Const: COMMON NORMALS: no acute distress HENMT: OTHER: Atraumatic Neck/C-Spine: OTHER: Good range of motion Chest: OTHER: Normal chest movement Resp: OTHER: No audible wheezing or laboring GI: OTHER: Soft, no distention : OTHER: Urine clear Bladder soft, nontender, nondistended Neuro: OTHER: Nonfocal Psych: ATTITUDE: Yes calm and Yes engaged MOOD & AFFECT: Yes euthymic mood THOUGHT CONTENT: Yes Normal thought content present INSIGHT: Good insight present (Psych) JUDGEMENT: Good judgement present (Psych) Discharge Data Studies Completed and Pending Pending at discharge Category Date Time Status PC [Leukocyte Reduced RBC] Stat Lab 08/14/22 13:40 Results Type and Screen Routine Lab 08/14/22 13:40 Results Laboratory Results WBC 13.7 10^3/uL (4.0-10.0) H 08/15/22 04:30 RBC 4.10 10^6/uL (4.1-5.3) 08/15/22 04:30 Hgb 12.3 g/dL (11.7-16.6) 08/15/22 04:30 Hct 37.6 % (42.0-52.0) L 08/15/22 04:30 MCV 91.7 fl (80-94) 08/15/22 04:30 MCH 30.0 pg (28.0-34.0) 08/15/22 04:30 MCHC 32.7 g/dL (30.0-36.0) 08/15/22 04:30 RDW 17.2 % (12.1-15.1) H 08/15/22 04:30 Plt Count 165 10^3/cmm (130-400) 08/15/22 04:30 MPV 10.6 fL (7.4-10.4) H 08/15/22 04:30 Neut % (Auto) 75.7 % 08/15/22 04:30 Lymph % (Auto) 13.8 % 08/15/22 04:30 Twiggs % (Auto) 5.6 % 08/15/22 04:30 Eos % (Auto) 0.4 % 08/15/22 04:30 Baso % (Auto) 0.4 % 08/15/22 04:30 Neut # (Auto) 10.34 10^3/uL (1.8-7.7) H 08/15/22 04:30 Lymph # (Auto) 1.9 10^3/uL (0.8-4.8) 08/15/22 04:30 Twiggs # (Auto) 0.8 10^3/uL (0.2-0.9) 08/15/22 04:30 Eos # (Auto) 0.1 10^3/uL (0.0-0.8) 08/15/22 04:30 Baso # (Auto) 0.1 10^3/uL (0.0-0.1) 08/15/22 04:30 Nucleated RBC % (auto) 0 % 08/15/22 04:30 Total Counted 100 (0-100) 08/14/22 13:40 Atypical Lymphs % 1.0 % (0-5) 08/14/22 13:40 Absolute Neutrophils 11.3 10^3/cmm (1.4-6.5) H 08/14/22 13:40 Segmented Neutrophils 70 % 08/14/22 13:40 Abs Segm Neuts (Man) 11.3 10/cmm (1.6-7.1) H 08/14/22 13:40 Band Neutrophils 0.0 % 08/14/22 13:40 Abs Band Neuts (Man) 0.0 10^3/cmm (0.0-1.2) 08/14/22 13:40 Absolute Lymphocytes 3.5 10^3/cmm (1.2-3.4) H 08/14/22 13:40 Lymphocytes (Manual) 21 % 08/14/22 13:40 Monocytes (Manual) 3.0 % 08/14/22 13:40 Absolute Monocytes 0.5 10^3/cmm (0.1-0.6) 08/14/22 13:40 Eosinophils (Manual) 0 % 08/14/22 13:40 Absolute Eosinophils 0.0 10^3/cmm (0.0-0.7) 08/14/22 13:40 Basophils (Manual) 0.0 % 08/14/22 13:40 Absolute Basophils 0.0 10^3/cmm (0.0-0.2) 08/14/22 13:40 Metamyelocytes 5.0 % 08/14/22 13:40 Nucleated RBCs # 0.0 /100WBC 08/15/22 04:30 Platelet Estimate Normal (Normal) 08/14/22 13:40 Ovalocytes 1+ H 08/14/22 13:40 PT 13.10 SECONDS (12.1-14.9) 08/14/22 13:40 INR 0.96 (0.8-1.2) 08/14/22 13:40 Sodium 136 mmol/L (136-145) 08/15/22 04:30 Potassium 4.4 mmol/L (3.5-5.1) 08/15/22 04:30 Chloride 101 mmol/L (98-107) 08/15/22 04:30 Carbon Dioxide 22 mmol/L (22-29) 08/15/22 04:30 Anion Gap 17.4 (5-19) 08/15/22 04:30 BUN 14 mg/dL (8-23) 08/15/22 04:30 Creatinine 0.7 mg/dL (0.7-1.2) 08/15/22 04:30 GFR Calculation 112.8 mL/min (90-130) 08/15/22 04:30 Glucose 143 mg/dL (65-115) H 08/15/22 04:30 Calculated Osmolality 285 mOsm/kg (285-295) 08/15/22 04:30 Calcium 9.0 mg/dL (8.5-10.5) 08/15/22 04:30 Total Bilirubin 0.5 mg/dL (0.15-1.2) 08/14/22 13:40 AST 18 U/L (0-40) 08/14/22 13:40 ALT 22 U/L (0-41) 08/14/22 13:40 Alkaline Phosphatase 86 U/L (40-130) 08/14/22 13:40 Total Protein 7.7 g/dL (6.6-8.7) 08/14/22 13:40 Albumin 4.6 g/dL (3.5-5.2) 08/14/22 13:40 Globulin 3.1 g/dL (1.3-4.6) 08/14/22 13:40 Blood Type A Positive 08/14/22 13:40 Rho(D) Type Positive 08/14/22 13:40 Antibody Screen Negative 08/14/22 13:40 Crossmatch See Detail 08/14/22 13:40 Procedures Performed Cystoscopy clot evacuation Vitals Last Vital Signs Temp 98.2 F 08/14/22 23:55 Pulse 69 08/14/22 23:55 Resp 16 08/14/22 23:55 BP 146/81 08/14/22 23:55 Pulse Ox 95 08/14/22 23:55 O2 Del Method 08/14/22 20:27 O2 Flow Rate 2 08/14/22 17:10 Discharge Plan Discharge Patient Disposition: Home Condition: Stable Prescriptions: Continued nitroglycerin 0.4 mg tablet, sublingual 0.4 mg SUBLINGUAL Q5M PRN (Reason: chest pain) Qty: 25 6RF Rx Instructions: until response; do not exceed 3 doses per episode albuterol sulfate 90 mcg/actuation HFA aerosol inhaler 2 puff inhalation 6XD PRN (Reason: shortness of breath or wheezing) 30 Days Qty: 18 3RF atorvastatin 40 mg tablet 40 mg PO DAILY Qty: 90 3RF isosorbide mononitrate 30 mg tablet extended release 24 hr 30 mg PO DAILY Qty: 90 3RF spironolactone 25 mg tablet 25 mg PO DAILY Qty: 90 3RF pantoprazole [Protonix] 40 mg tablet,delayed release (DR/EC) 40 mg PO DAILY Qty: 30 3RF phenazopyridine [Pyridium] 200 mg tablet 200 mg PO Q8H PRN (Reason: pain) Qty: 3 0RF tamsulosin 0.4 mg capsule 0.4 mg PO DAILY Qty: 30 5RF amoxicillin-pot clavulanate [Augmentin] 500-125 mg tablet 1 tab PO BID Qty: 30 0RF hydrocodone-acetaminophen 5-325 mg tablet 1 tab PO Q8H PRN (Reason: pain) Qty: 18 0RF Held aspirin 81 mg Tablet,Delayed Release (Dr/Ec) 81 mg PO DAILY Hold Instructions: Resume on 08/29/22. Discontinued oxybutynin chloride 15 mg tablet extended release 24hr 15 mg PO DAILY Qty: 3 0RF Discharge Orders: Discharge Order (Routine); Ordered 08/15/22 Ordered By: Luis A Martini Referrals: Luis A Martini MD [Physician] - 09/02/22 (Pathology review and planning) Discharge Diet: Advance as tolerated Discharge Activity: Limit activity as instructed Patient Instructions: Cystoscopy, Hematuria - Male Activity Restrictions/Additional Instructions: 1. Same principles apply as at discharge last visit. * Avoid straining of any type for least 3-week * Prevent constipation * You still can expect to see some blood in urine off and on but as long as its not severe and persistent that is okay * Hold the aspirin. * Call for any questions. My cell phone is [phone] 2. We need to communicate over the next couple weeks to review options based on the additional opinions related to the final pathology report. 3. Remember that you no longer need the oxybutynin. Continue your other medicines other than aspirin as you normally take them at home. Discharge Attestations Time Spent in Discharge Care*: less than 30 min Quality Metrics Clinical Quality Measures [ No reported AMI, CVA or VTE this stay] Coding Level of Care Code Acute Chg DC note Diagnoses Urethral bleeding N36.8 Bladder cancer C67.9
[2022-08-15 07:28] VITALS: BP 147/67; PULSE 54; RESP 15; TEMP 36.7; O2SAT 91
[2022-08-15] MEDS: amoxicillin-clav 500-125 mg Tablet 1 TAB PO (08:26)
[2022-08-15] MEDS: spironolactone 25 mg Tablet PO (08:26)
[2022-08-15] MEDS: atorvastatin 40 mg Tablet PO (08:26)
[2022-08-15] MEDS: tamsulosin 0.4 mg Capsule PO (08:26)
[2022-08-15] MEDS: pantoprazole DR 40 mg Tablet PO (08:26)
[2022-08-15] MEDS: docusate sodium 100 mg Capsule PO (08:27)
[2022-08-15] MEDS: isosorbide mononitrate ER 30 mg Tablet PO (08:27)
[2022-08-15 09:50] VITALS: BP 147/67; PULSE 54; RESP 15; TEMP 36.7; O2SAT 91
--- NOTE | 2022-08-15 12:00 | PC.NURSE ---
0945 Discharge instructions given to patient who voiced understanding.
--- NOTE | 2022-08-15 12:04 | PC.NURSE ---
0950 Patient discharged to home with patient in stable condition taken to private car per wheel chair per this nurse
== END 2022-08-15 09:50 | disposition home or self-care (01) ==
LOC: MEDSURG 18:16 → OPMS 08-15 12:17 → MEDSURG 08-19 07:38
PROVIDERS: PCP Nurse Practitioner; Visit Provider Urology
PROC: 0T5B8ZZ Destruction of Bladder, Via Natural or Artificial Opening Endoscopic (ICD-10-PCS; principal; 2022-08-14 13:30)
DX: C67.9 Malignant neoplasm of bladder, unspecified (principal); N36.8 Other specified disorders of urethra; J44.9 Chronic obstructive pulmonary disease, unspecified; I25.10 Atherosclerotic heart disease of native coronary artery without angina pectoris; I10 Essential (primary) hypertension; Z79.82 Long term (current) use of aspirin; E78.5 Hyperlipidemia, unspecified; F17.210 Nicotine dependence, cigarettes, uncomplicated
CPT/HCPCS: 36415; 51798; 80048; 80053; 85007; 85025; 85610; 86850; 86900; 86920; 94664; G0378; J0330; J0690; J1100; J2250; J2370; J2405; J2704; J2710; J3490

== ENCOUNTER → 2022-11-07 15:38 | Outpatient (BNVA) | payer MEDICARE, MEDICAID, SELFPAY | PROVIDERS: PCP Nurse Practitioner; Visit Provider Urology | DX: C67.9 Malignant neoplasm of bladder, unspecified (principal); N36.8 Other specified disorders of urethra; N99.115 Postprocedural fossa navicularis urethral stricture | CPT/HCPCS: 81003 ==

== ENCOUNTER → 2022-11-25 09:40 | Outpatient (BNVA) | payer MEDICARE, MEDICAID, SELFPAY | PROVIDERS: PCP Nurse Practitioner; Visit Provider Internal Medicine Pulmonary Disease | DX: J44.9 Chronic obstructive pulmonary disease, unspecified (principal); F17.200 Nicotine dependence, unspecified, uncomplicated; I25.10 Atherosclerotic heart disease of native coronary artery without angina pectoris; Z85.51 Personal history of malignant neoplasm of bladder | CPT/HCPCS: 99214 ==

== ENCOUNTER 2022-12-10 09:04 | Outpatient (CLI) | payer MEDICARE, MEDICAID, SELFPAY ==
--- NOTE | 2022-12-10 09:00 | CT_ITS ---
WS: [id number] LDCT LUNG CANCER SCREENING HISTORY: Cancer screening TECHNIQUE: Axial imaging performed from the apices to 1 cm below the costophrenic angles. Coronal and sagittal reformats are submitted with axial MIP series. All CT scans at [facility] use at least one of these dose optimization techniques: automated exposure control; mA and/or kV adjustment per patient size (includes targeted exams where dose is matched to clinical indication); or iterativ e reconstruction. DLP: 95.99 mGy.cm DIvol: Mean CTDIvol: 2.00 (mGy) COMPARISON: 08/16/2020 Diagnostic quality: Satisfactory Lungs: Marked paraseptal emphysema. Subpleural nodules and scarring at the apices are stable. No pulm onary mass or nodule. No endobronchial lesions. Multi lobar bronchiectasis is reidentified. More prom inent bronchial wall thickening LEFT lower lobe. Heart: Normal size heart with no pericardial effusion.. Other findings: Mild atherosclerosis aorta. Normal size pulmonary artery moderate coronary artery bobby cification. Small hiatal hernia. No adrenal mass. Hepatic steatosis. Thoracic spondylosis. CT/CT lung screening [id number] IMPRESSION: LUNG-RADS: 1-Negative FOLLOW UP: 12 Month: Continue annual screening with LDCT OTHER FINDINGS (S MODIFIER): None.
== END 2022-12-10 09:05 | disposition home or self-care (01) ==
LOC: RAD 09:08
PROVIDERS: PCP Nurse Practitioner; Visit Provider Internal Medicine Pulmonary Disease
DX: Z12.2 Encounter for screening for malignant neoplasm of respiratory organs (principal); Z87.891 Personal history of nicotine dependence
CPT/HCPCS: 71271

== ENCOUNTER → 2022-12-17 08:54 | Outpatient (BNVA) | payer MEDICARE, MEDICAID, SELFPAY | PROVIDERS: PCP Nurse Practitioner; Referring Provider Nurse Practitioner; Visit Provider Nurse Practitioner Family | DX: C44.319 Basal cell carcinoma of skin of other parts of face (principal); Z85.828 Personal history of other malignant neoplasm of skin; L57.8 Other skin changes due to chronic exposure to nonionizing radiation; L91.8 Other hypertrophic disorders of the skin; L81.4 Other melanin hyperpigmentation; D22.5 Melanocytic nevi of trunk; Z71.89 Other specified counseling; L85.3 Xerosis cutis; L82.1 Other seborrheic keratosis; L57.0 Actinic keratosis; Z87.891 Personal history of nicotine dependence | CPT/HCPCS: 11102; 11103; 17000; 17003; 99203 ==

== ENCOUNTER → 2023-01-14 14:32 | Outpatient (BNVA) | payer MEDICARE, MEDICAID, SELFPAY | PROVIDERS: PCP Nurse Practitioner; Visit Provider Internal Medicine Cardiovascular Disease | DX: R07.9 Chest pain, unspecified (principal); I25.10 Atherosclerotic heart disease of native coronary artery without angina pectoris; I25.5 Ischemic cardiomyopathy; I10 Essential (primary) hypertension; E78.5 Hyperlipidemia, unspecified; F17.200 Nicotine dependence, unspecified, uncomplicated; I71.40 Abdominal aortic aneurysm, without rupture, unspecified | CPT/HCPCS: 99214 ==

== ENCOUNTER → 2023-01-27 11:38 | Outpatient (BNVA) | payer MEDICARE, MEDICAID, SELFPAY | PROVIDERS: PCP Nurse Practitioner; Visit Provider Dermatology | DX: C44.319 Basal cell carcinoma of skin of other parts of face (principal) | CPT/HCPCS: 12053; 17311; 17312 ==

== ENCOUNTER → 2023-01-29 09:15 | Outpatient (BNVA) | payer MEDICARE, MEDICAID, SELFPAY | PROVIDERS: PCP Nurse Practitioner; Visit Provider Urology | DX: C67.9 Malignant neoplasm of bladder, unspecified (principal); N99.115 Postprocedural fossa navicularis urethral stricture | CPT/HCPCS: 51720; 52281; 81003; J9280 ==

== ENCOUNTER → 2023-02-06 10:11 | Outpatient (BNVA) | payer MEDICARE, MEDICAID, SELFPAY | PROVIDERS: PCP Nurse Practitioner; Visit Provider Dermatology | DX: L57.0 Actinic keratosis (principal); L72.0 Epidermal cyst; L82.0 Inflamed seborrheic keratosis; Z48.02 Encounter for removal of sutures | CPT/HCPCS: 17000; 17003; 17110; 99212 ==

== ENCOUNTER → 2023-04-30 15:17 | Outpatient (BNVA) | payer MEDICARE, MEDICAID, SELFPAY | PROVIDERS: PCP Nurse Practitioner; Visit Provider Dermatology | DX: L72.0 Epidermal cyst (principal); L82.1 Other seborrheic keratosis; Z85.828 Personal history of other malignant neoplasm of skin; L82.0 Inflamed seborrheic keratosis; L57.0 Actinic keratosis; D48.5 Neoplasm of uncertain behavior of skin | CPT/HCPCS: 11102; 17000; 17110; 99213 ==

== ENCOUNTER → 2023-05-20 09:54 | Outpatient (BNVA) | payer MEDICARE, MEDICAID, SELFPAY | PROVIDERS: PCP Nurse Practitioner; Visit Provider Dermatology | DX: C44.319 Basal cell carcinoma of skin of other parts of face (principal) | CPT/HCPCS: 13132; 17311 ==

== ENCOUNTER → 2023-05-26 08:28 | Outpatient (BNVA) | payer MEDICARE, MEDICAID, SELFPAY | PROVIDERS: PCP Nurse Practitioner; Visit Provider Internal Medicine Pulmonary Disease | DX: J41.0 Simple chronic bronchitis (principal); J98.4 Other disorders of lung; F17.210 Nicotine dependence, cigarettes, uncomplicated; Z85.51 Personal history of malignant neoplasm of bladder | CPT/HCPCS: 99214 ==

== ENCOUNTER 2023-07-22 10:08 | Outpatient (CLI) | payer MEDICARE, MEDICAID, SELFPAY ==
[2023-07-22 10:27] VITALS: PULSE 51; RESP 18; O2SAT 96
[2023-07-22] MEDS: albuterol 2.5 mg/3 mL Neb INHALATION (10:31)
[2023-07-22 10:32] VITALS: PULSE 53
== END 2023-07-22 10:09 | disposition home or self-care (01) ==
LOC: RT 10:09
PROVIDERS: PCP Nurse Practitioner; Visit Provider Internal Medicine Pulmonary Disease
DX: R06.02 Shortness of breath (principal); Z87.891 Personal history of nicotine dependence; R94.2 Abnormal results of pulmonary function studies
CPT/HCPCS: 94060; 94618; 94726; 94729; 99214; J7613

== ENCOUNTER → 2023-09-26 08:37 | Outpatient (BNVA) | payer MEDICARE, MEDICAID, SELFPAY | PROVIDERS: PCP Nurse Practitioner; Visit Provider Internal Medicine Pulmonary Disease | DX: J44.9 Chronic obstructive pulmonary disease, unspecified (principal); Z87.891 Personal history of nicotine dependence; I25.10 Atherosclerotic heart disease of native coronary artery without angina pectoris; I10 Essential (primary) hypertension | CPT/HCPCS: 99214 ==

== ENCOUNTER 2023-10-06 08:40 | Outpatient (CLI) | payer MEDICARE, MEDICAID, SELFPAY ==
--- NOTE | 2023-10-06 | ECG_ITS ---
[facility] Test Date: 2023-10-06 Pat Name: Geovanni Dudley Department: Room: Gender: Male Director Advertising: : 1955 Requested By: Mariano Combsr Kathrin Order Number: [id number] Francisca MD: Rico Ramsay M.D. Interpretive Statements NAME OF STUDY: LEXISCAN SESTAMIBI STRESS TEST INDICATION: [shortness of breath on exertion] Procedure: At the baseline, the blood pressure was 181/80 mmHg with a heart rate of 51 bpm. The electrocardiogram showed sinus bradycardia, normal axis with normal ST and T's. The Lexiscan was infused over a period of 20 seconds. A total of 0.4 mg of Lexiscan was infused. The stress phase was continued for a total of 5 minutes. Heart rate was at the end of stress phase was 52 bpm and a blood pressure of 149/76 mmHg. The EKG at the peak infusion revealed normal sinus rhythm with no significant ST-T wave changes. Sestamibi was injected 20 seconds after the Lexiscan infusion. Blood pressure at the end of recovery phase was 150/76 mmHg with a heart rate of 53 bpm. Conclusion: 1. Normal EKG response to Lexiscan infusion 2. No Lexiscan induced chest pain or cardiac arrhythmia. 3. Normal blood pressure and heart rate response. 4. Sestamibi/sestamibi perfusion scan pending; see separate report. Electronically Signed On 10-23-2023 10:10:34 CDT by Rico Ramsay M.D. [email or web address]
[2023-10-06 08:48] VITALS: BMI 32.3
--- NOTE | 2023-10-06 08:53 | NMCV_ITS ---
NM petr perf SPECT r/s* [id number] Geovanni Dudley Age: 68 Gender: M : 1955 Exam Date: 10/06/2023 09:42 Ordering Phys: Mariano Ramsay MD Technologist: FARRUKH Tyler Exam Location: [facility] Indications: SHORTNESS OF BREATH STRESS TEST Please [facility] IMAGE PROTOCOL Rest/Stress 1 Lexiscan Day Radiopharmaceutical Dose (mCi) Administration Site Administered by Rest: Tc-99m 10.4 IV FARRUKH Miller Sestamibi Stress:Tc-99m 32.9 IV FARRUKH Miller Sestamibi Rest: 06-Oct-2023 60 Discovery 630 Stress: 06-Oct-2023 30 Discovery 630 0.4mg Lexiscan. Images obtained in supine and prone position. SPECT RESULTS Technical Quality: Excellent Raw Data Analysis: Normal Image Corrections: No attenuation or motion correction applied Summed Stress Score: 12 Summed Rest Score: 14 Summed Difference Score: 2 PERFUSION FINDINGS Moderate sized area of fixed perfusion defect is seen in apical and apical septal alvarez.This is consistent with moderate sized area of prior infarct in the LAD territory. Moderate sized area of fixed perfusion defect is seen in the inferior wall. This is consistent with moderate area of prior infarct seen in RCA territory. No evidence of ischemia FUNCTIONAL RESULTS (calculated via Gated SPECT) Stress Image LV EF (%): 48 Stress EDV (mL):146 TID: 0.94 Stress ESV (mL):76 FUNCTIONAL FINDINGS: LV systolic function is mildly reduced with EF of 48% IMPRESSIONS 1. Medium sized areas of prior infarcts are seen in LAD and RCA territories. 2. LV systolic function is mildly reduced with EF of 48%. Rico Ramsay MD (Electronically Signed) Final Date: 07 October 2023 11:44 S
[2023-10-06] MEDS: regadenoson 0.4 Mg/5 ml Syringe 0.400000000000000022 MG IVP (10:21)
[2023-10-06 10:30] VITALS: BP 145/77; PULSE 72
== END 2023-10-06 08:41 | disposition home or self-care (01) ==
PROVIDERS: PCP Nurse Practitioner; Visit Provider Internal Medicine Pulmonary Disease
DX: R06.02 Shortness of breath (principal); I25.2 Old myocardial infarction
CPT/HCPCS: 36415; 78452; 96374; A9500; J2785

== ENCOUNTER → 2023-10-27 08:47 | Outpatient (BNVA) | payer MEDICARE, MEDICAID, SELFPAY | PROVIDERS: PCP Nurse Practitioner; Visit Provider Nurse Practitioner Family | DX: I25.10 Atherosclerotic heart disease of native coronary artery without angina pectoris (principal); I10 Essential (primary) hypertension; I47.20 Ventricular tachycardia, unspecified; E78.5 Hyperlipidemia, unspecified; Z87.891 Personal history of nicotine dependence; R00.1 Bradycardia, unspecified; R94.31 Abnormal electrocardiogram [ECG] [EKG] | CPT/HCPCS: 99214 ==

== ENCOUNTER → 2023-12-01 14:19 | Outpatient (BNVA) | payer MEDICARE, MEDICAID, SELFPAY | PROVIDERS: PCP Nurse Practitioner; Visit Provider Nurse Practitioner Family | DX: L57.0 Actinic keratosis (principal); L82.1 Other seborrheic keratosis; C44.41 Basal cell carcinoma of skin of scalp and neck; C44.619 Basal cell carcinoma of skin of left upper limb, including shoulder; L72.0 Epidermal cyst; L81.4 Other melanin hyperpigmentation; D22.5 Melanocytic nevi of trunk; L85.3 Xerosis cutis; L57.8 Other skin changes due to chronic exposure to nonionizing radiation | CPT/HCPCS: 11102; 17000; 99213 ==

== ENCOUNTER → 2023-12-04 09:15 | Outpatient (BNVA) | payer MEDICARE, MEDICAID, SELFPAY | PROVIDERS: PCP Nurse Practitioner; Visit Provider Dermatology | DX: C44.619 Basal cell carcinoma of skin of left upper limb, including shoulder (principal) | CPT/HCPCS: 11603; 13121 ==

== ENCOUNTER 2023-12-15 08:54 | Outpatient (CLI) | payer MEDICARE, SELFPAY ==
--- NOTE | 2023-12-15 09:00 | CT_ITS ---
WS: [id number] LDCT LUNG CANCER SCREENING HISTORY: Cancer Screen TECHNIQUE: Axial imaging performed from the apices to 1 cm below the costophrenic angles. Coronal and sagittal reformats are submitted with axial MIP series. All CT scans at [facility] use at least one of these dose optimization techniques: automated exposure control; mA and/or kV adjustment per patient size (includes targeted exams where dose is matched to clinical indication); or iterativ e reconstruction. DLP: 96.41 mGy.cm DIvol: Mean CTDIvol: 2.10 (mGy) COMPARISON: 12/10/2022 Diagnostic quality: Satisfactory Lungs: Marked centrilobular emphysema. Areas of pleural scarring and nodularity are stable. No new ma ss or nodule. No enlarging nodule. Mild bronchiectasis in the lower lung reza, greatest in the LEFT lower lobe. Central bronchial wall thickening is stable. No endobronchial lesions. Heart: Normal size heart with no pericardial effusion.. Other findings: Mild gynecomastia. No adenopathy. Mild scattered coronary artery calcification. Hepat ic steatosis. Normal density in the liver. Similar to 07/25/2022. Hepatic steatosis. No adrenal mass. Prior cholecystectomy. Moderate thoracic spondylosis. CT/CT lung screening [id number] IMPRESSION: LUNG-RADS: 1-Negative FOLLOW UP: 12 Month: Continue annual screening with LDCT OTHER FINDINGS (S MODIFIER): None.
== END 2023-12-15 08:55 | disposition home or self-care (01) ==
LOC: RAD 08:55
PROVIDERS: PCP Nurse Practitioner; Visit Provider Internal Medicine Pulmonary Disease
DX: Z87.891 Personal history of nicotine dependence (principal); Z12.2 Encounter for screening for malignant neoplasm of respiratory organs; J43.2 Centrilobular emphysema; J47.9 Bronchiectasis, uncomplicated; I25.10 Atherosclerotic heart disease of native coronary artery without angina pectoris; K76.0 Fatty (change of) liver, not elsewhere classified; M47.814 Spondylosis without myelopathy or radiculopathy, thoracic region
CPT/HCPCS: 71271

== ENCOUNTER → 2024-04-13 10:36 | Outpatient (BNVA) | payer MEDICARE, SELFPAY | PROVIDERS: PCP Nurse Practitioner; Visit Provider Nurse Practitioner Family | DX: D48.5 Neoplasm of uncertain behavior of skin (principal); C44.41 Basal cell carcinoma of skin of scalp and neck; L82.1 Other seborrheic keratosis; L81.4 Other melanin hyperpigmentation; D22.5 Melanocytic nevi of trunk; L85.3 Xerosis cutis; L57.8 Other skin changes due to chronic exposure to nonionizing radiation; L57.0 Actinic keratosis | CPT/HCPCS: 11102; 17000; 99213 ==

== ENCOUNTER → 2024-04-14 15:06 | Outpatient (BNVA) | payer MEDICARE, SELFPAY | PROVIDERS: PCP Nurse Practitioner; Visit Provider Internal Medicine Cardiovascular Disease | DX: I48.91 Unspecified atrial fibrillation (principal); R06.02 Shortness of breath; R53.1 Weakness; Z79.01 Long term (current) use of anticoagulants; R00.1 Bradycardia, unspecified; R94.31 Abnormal electrocardiogram [ECG] [EKG]; I25.118 Atherosclerotic heart disease of native coronary artery with other forms of angina pectoris; I65.23 Occlusion and stenosis of bilateral carotid arteries; E78.5 Hyperlipidemia, unspecified; I10 Essential (primary) hypertension; I71.43 Infrarenal abdominal aortic aneurysm, without rupture; I35.0 Nonrheumatic aortic (valve) stenosis | CPT/HCPCS: 36415; 80053; 83880; 85025; 85610; 93005; 99215 ==

== ENCOUNTER → 2024-05-24 10:56 | Outpatient (BNVA) | payer MEDICARE, SELFPAY | PROVIDERS: PCP Nurse Practitioner; Visit Provider Nurse Practitioner | DX: D64.9 Anemia, unspecified (principal) | CPT/HCPCS: 85025 ==

== ENCOUNTER 2024-05-25 15:59 | Emergency (ER) | payer MEDICARE, SELFPAY ==
[2024-05-25 16:39] VITALS: BP 102/66; PULSE 90; RESP 18; TEMP 36.8; O2SAT 97; BMI 25.5
[2024-05-25 16:47] LABS: Basophils # 0.1 10^3/uL (0.0-0.1); Basophils % 0.4 %; Eosinophils % 0.1 %; Hematocrit 29.4 % (37-53); Lymphocytes # 0.6 10^3/uL (0.8-4.8); Lymphocytes % 3.7 %; Mean Corpuscular HGB Conc 29.9 g/dL (30-55); Mean Corpuscular Hemoglobin 28.4 pg (27-33); Mean Corpuscular Volume 94.8 fl (82-101); Mean Platelet Volume 10.7 fL (7.4-10.4); Monocytes # 0.4 10^3/uL (0.2-0.9); Neutrophils # 15.94 10^3/uL (1.8-7.7); Neutrophils % 92.4 %; Nucleated Red Blood Cells % 0.2 %; Platelet Count 238 10^3/cmm (157-399); Red Cell Distribution Width 16.2 % (12.1-15.1); White Blood Count 17.26 10^3/uL (3.29-11.43)
[2024-05-25 17:05] LABS: Alanine Aminotransferase 44 U/L (0-41); Albumin Level 3.1 g/dL (3.5-5.2); Alkaline Phosphatase 311 U/L (40-130); Anion Gap 16.1 (5-19); Aspartate Amino Transferase 113 U/L (0-40); Blood Urea Nitrogen 22 mg/dL (8-23); Carbon Dioxide 27 mmol/L (22-29); Chloride 92 mmol/L (98-107); Globulin 3.3 g/dL (1.3-4.6); Glomerular Filtration Rate 96.1 mL/min (90-130); Glucose 184 mg/dL (65-115); Osmolality Calculated 280 mOsm/kg (285-295); Potassium 4.1 mmol/L (3.5-5.1); Sodium 131 mmol/L (136-145); Total Bilirubin 0.8 mg/dL (0.15-1.2); Total Protein 6.4 g/dL (6.6-8.7)
--- NOTE | 2024-05-25 17:26 | CTR_ITS ---
PROCEDURE INFORMATION: Exam: CT Abdomen And Pelvis With Contrast Exam date and time: 05/25/2024 5:43 PM Age: 68 years old Clinical indication: Abdominal pain; Additional info: Abd pain TECHNIQUE: Imaging protocol: Computed tomography of the abdomen and pelvis with contrast. Sagittal and coronal reformatted images were created and reviewed. Radiation optimization: All CT scans at this facility use at least one of these dose optimization techniques: automated exposure control; mA and/or kV adjustment per patient size (includes targeted exams where dose is matched to clinical indication); or iterative reconstruction. Contrast material: [id number]; Contrast volume: 100 ml; Contrast route: INTRAVENOUS (IV); COMPARISON: CT kidney stone [id number] 07/25/2022 3:15 PM RADIATION DOSE METRICS: Total DLP (mGy-cm): 658 FINDINGS: Tubes, catheters and devices: Percutaneous transhepatic biliary drain extending through the ampulla with the pigtail coil in the proximal jejunum. Percutaneous gastrojejunostomy tube in the distal body of the stomach with the pigtail coiled in the proximal jejunum. Lungs: Dependent atelectasis in the right lung. Stable reticulonodular interstitial thickening in the medial right lower lobe findings may represent residual sequela of previous infection. Pleural spaces: No pleural effusion. Heart: Stable moderate enlargement of the visualized portions of the heart. Coronary arteries: Stable moderate atherosclerotic calcification in the visualized coronary arteries. Liver: Triangular-shaped areas of relative decreased enhancement in the anterior left hepatic lobe (series 3, images 26-35). 5.5 x 2.0 x 1.7 cm loculated fluid collection between the surface of the lower right hepatic surface and the right upper quadrant abdominal wall (series 6, image 69 and series 3, image 41). Interval development of multiple hypodense foci in the liver that cannot be further characterized on the current examination. The largest is in the upper right hepatic lobe and measures 8.8 mm (series 3, images 29, 30, 38, and 41). Gallbladder and biliary ducts: Patient has had a previous cholecystectomy. Dilatation of the biliary ducts, not unexpected in a patient who has had a prior cholecystectomy. Small amount of intrahepatic pneumobilia in the left hepatic lobe. Pancreas: Ill-defined mass with areas of necrosis in the head of the pancreas measuring 4.1 x 5.2 x 3.9 cm (series 5, image 41 and series 3, image 39). The mass obstructs the pancreatic duct with dilatation of the proximal pancreatic duct measuring up to 8.7 mm (series 3, image 33). Spleen: The spleen is unremarkable. Adrenal glands: The right and left adrenal glands are unremarkable. Kidneys and ureters: Simple cyst in the right kidney measuring 1.5 cm. Subcentimeter hypodense foci in both right and left kidneys that are too small to characterize, however likely represent small cysts. The right and left ureters are unremarkable. Stomach and bowel: Scattered diverticula in the colon. No evidence for diverticulitis. No acute abnormality in the stomach or small bowel. Appendix: The appendix is visualized and is unremarkable. No findings to suggest acute appendicitis. Intraperitoneal space: No free intraperitoneal air. No loculated fluid collections to suggest an abscess. Vasculature: Stable moderate atherosclerotic calcifications in the visualized arteries. The aorta is tortuous. Aneurysm of the infrarenal abdominal aorta measuring up to 4.4 x 4.8 cm, previously measured4.0 x 4.2 cm (series 3, image 54 and series 5, image 34). The AAA extends to the origin of the right common iliac artery. The right common iliac artery is stable measuring 2.1 cm (series 3, image 55). Large amount of mural thrombus in the aneurysm. No evidence for aneurysm rupture. No evidence for aortic dissection. Hepatic veins, portal veins, splenic vein, and SMV are patent. Lymph nodes: No lymphadenopathy. Urinary bladder: The bladder is unremarkable. Reproductive: Nonspecific parenchymal calcifications in the prostate gland. Bones/joints: Degenerative changes in the spine, sacroiliac joints, and hips. Soft tissues: No acute abnormality in the extra-abdominal soft tissues. CT/CT abdomen pelvis w con* [id number] IMPRESSION: 1. Triangular-shaped areas of relative decreased enhancement in the anterior left hepatic lobe. It is uncertain whether these may represent areas of edema versus focal fatty infiltration versus hepatic infarcts. 2. 5.5 x 2.0 x 1.7 cm loculated fluid collection between the surface of the lower right hepatic surface and the right upper quadrant abdominal wall. Differential diagnosis includes a small abscess versus a hematoma. 3. Stable reticulonodular interstitial thickening in the medial right lower lobe findings may represent residual sequela of previous infection. 4. Ill-defined mass with areas of necrosis in the head of the pancreas. The mass obstructs the pancreatic duct with pancreatic ductal dilatation. 5. Interval development of multiple indeterminate hypodense foci in the liver. In a low-risk patient, this is most likely to be benign and no further follow-up is recommended. In a high-risk patient, follow-up MRI in 3-6 months is recommended (or earlier if warranted by the patient's specific clinical circumstances). (Reference: Kathie) 6. Mild increase in size of an infrarenal abdominal aorta. The right common iliac artery is stable in diameter. Large amount of mural thrombus in the aneurysm. No evidence for aneurysm rupture. 7. Patient has had a previous cholecystectomy. Dilatation of the biliary ducts, not unexpected in a patient who has had a prior cholecystectomy. 8. Small amount of intrahepatic pneumobilia in the left hepatic lobe. 9. Percutaneous transhepatic biliary drain extending through the ampulla with the pigtail coil in the proximal jejunum. 10. Percutaneous gastrojejunostomy tube in the distal body of the stomach with the pigtail coiled in the proximal jejunum. 11. Scattered diverticula in the colon. No evidence for diverticulitis. 12. Incidental/nonacute findings are listed in the report. COMMENTS: 1. Urgent results were discussed with CARLOS Gil on 05/25/2024 at 7:19 PM CDT. 2. Consistent with the [employer]'s Incidental Findings Committee white paper (J Am Wendy Radiol 2018): Any incidental renal lesion less than 1 cm or classified as too small to characterize, or any incidental cystic renal lesion characterized as simple-appearing, is likely benign. No follow-up imaging is recommended for these lesions per consensus recommendations based on imaging criteria. REFERENCES: Kathie MEDINA, et al. Management of Incidental Liver Lesions on CT: A White Paper of the ACR Incidental Findings Committee. J Am Wendy Radiol. 2017;14(11):7468-7394.
[2024-05-25] MEDS: ondansetron 2 mg/ML SDV 2 mL 4 MG IVP (17:32)
[2024-05-25] MEDS: sodium chloride 0.9% 500 ML 999 ML IV (17:33)
[2024-05-25 17:34] VITALS: BP 107/66; PULSE 87; RESP 18; O2SAT 93
[2024-05-25 17:39] LABS: Slide Review Slide Review Perform
--- NOTE | 2024-05-25 17:46 | XRR_ITS ---
PROCEDURE INFORMATION: Exam: XR Chest Exam date and time: 05/25/2024 6:02 PM Age: 68 years old Clinical indication: Other: Weakness TECHNIQUE: Imaging protocol: Radiologic exam of the chest. Views: 1 view. COMPARISON: CT lung screening [id number] 12/15/2023 9:30 AM FINDINGS: Lungs: Lungs are clear bilaterally. Pleural spaces: No pleural effusion. No pneumothorax. Heart/Mediastinum: Stable moderate enlargement of the cardiac silhouette. Mediastinal contours are unremarkable. Vasculature: Stable vascular calcifications in the aorta. Bones/joints: Unremarkable for age. XR/XR chest 1V portable [id number] IMPRESSION: 1. No acute cardiopulmonary process. 2. Incidental/nonacute findings are listed in the report.
[2024-05-25] MEDS: iohexol 350 mg/mL 500 mL Btl (per mL) IV (17:47)
--- NOTE | 2024-05-25 18:09 | ED_ITS ---
HPI - Weakness 2 General: Chief complaint: Weakness Stated complaint: liver tube infected and leaking Time Seen by Provider: 05/25/24 17:02 Source: patient Mode of arrival: ambulatory Limitations: no limitations History of Present Illness: 68-year-old male has a history of pancre atic cancer with liver mets he had been admitted to [facility] for 5 weeks had a biliary stent placed he was discharged on states that since then he has been having increasing weakness and vomiting he has a PEG tube as well for tube feedings but states been vomiting even when he does that. Denies any fever denies any increasing pain PFSH ED 2 PFSH: Medical History COPD exacerbation Abdominal aortic aneurysm COPD (chronic obstructive pulmonary disease) Dyslipidemia HTN (hypertension) Smoker CAD (coronary artery disease) Surgical History History of transurethral resection of bladder tumor (TURBT) History of cholecystectomy S/P coronary artery stent placement Family History Mother , AT AGE 64 Heart attack Father , AT AGE 66 Cancer LUNG Other CAD (coronary artery disease) Social History Smoking and tobacco/nicotine status: former use of tobacco/nicotine Quit status (tobacco/nicotine): has quit using Year quit tobacco: 2021 ( July) Former quit date comment: HX of 2 ppd X 53 years Second hand smoke exposure: No Alcohol intake: current Alcohol intake frequency: few times a week Alcohol type: beer Substance/Drug Use: unknown Adopted: No Lives independently: Yes Household members: spouse Housing: House Marital status: Current occupational status: disabled Do you think of yourself as: Straight/Heterosexual Current gender identity: Male Course 2 Vital Signs: Vital signs: Vital Signs Temperature 98.3 F 05/25/24 16:39 Pulse Rate 80 05/25/24 20:15 Respiratory Rate 16 05/25/24 20:15 Blood Pressure 97/62 05/25/24 20:15 Pulse Oximetry 93 05/25/24 20:15 Oxygen Delivery Me thod Room Air 05/25/24 20:15 MDM - Weakness Medical Decision Making Patient presents with generalized weakness has a history of pancreatic cancer along with liver mets. I informed the CT findings I did speak to Beltr[facility] over the oncology team and recommended palliative care patient states he does not want to be transferred to [facility] he had been given the option to follow-up with oncology at [facility] he states he does not want to follow-up with there and does not want any oncology treatment states he really just wants home health or possibly hospice will start him on Keflex along with nausea medicine he feels improved. Would like to go home did put his case management order in to have them help him set up home health or hospice he is return if worsening he understands agrees to plan Medical Records I reviewed the patient's medical records. Lab Data I reviewed the patient's lab results. 05/25/24 16:36 05/25/24 16:36 Radiology Impressions Abdomen/Pelvis CT 05/25/24 17:26 IMPRESSION: 1. Triangular-shaped areas of relative decreased enhancement in the anterior left hepatic lobe. It is uncertain whether these may represent areas of edema versus focal fatty infiltration versus hepatic infarcts. 2. 5.5 x 2.0 x 1.7 cm loculated fluid collection between the surface of the lower right hepatic surface and the right upper quadrant abdominal wall. Differential diagnosis includes a small abscess versus a hematoma. 3. Stable reticulonodular interstitial thickening in the medial right lower lobe findings may represent residual sequela of previous infection. 4. Ill-defined mass with areas of necrosis in the head of the pancreas. The mass obstructs the pancreatic duct with pancreatic ductal dilatation. 5. Interval development of multiple indeterminate hypodense foci in the liver. In a low-risk patient, this is most likely to be benign and no further follow-up is recommended. In a high-risk patient, follow-up MRI in 3-6 months is recommended (or earlier if warranted by the patient's specific clinical circumstances). (Reference: Kathie) 6. Mild increase in size of an infrarenal abdominal aorta. The right common iliac artery is stable in diameter. Large amount of mural thrombus in the aneurysm. No evidence for aneurysm rupture. 7. Patient has had a previous cholecystectomy. Dilatation of the biliary ducts, not unexpected in a patient who has had a prior cholecystectomy. 8. Small amount of intrahepatic pneumobilia in the left hepatic lobe. 9. Percutaneous transhepatic biliary drain extending through the ampulla with the pigtail coil in the proximal jejunum. 10. Percutaneous gastrojejunostomy tube in the distal body of the stomach with the pigtail coiled in the proximal jejunum. 11. Scattered diverticula in the colon. No evidence for diverticulitis. 12. Incidental/nonacute findings are listed in the report. COMMENTS: 1. Urgent results were discussed with CARLOS Gil on 05/25/2024 at 7:19 PM CDT. 2. Consistent with the [employer]'s Incidental Findings Committee white paper (J Am Wendy Radiol 2018): Any incidental renal lesion less than 1 cm or classified as too small to characterize, or any incidental cystic renal lesion characterized as simple-appearing, is likely benign. No follow-up imaging is recommended for these lesions per consensus recommendations based on imaging criteria. REFERENCES: Kathie MEDINA, et al. Management of Incidental Liver Lesions on CT: A White Paper of the ACR Incidental Findings Committee. J Am Wendy Radiol. 2017;14(11):9000-3747. Chest X-Ray 05/25/24 17:46 IMPRESSION: 1. No acute cardiopulmonary process. 2. Incidental/nonacute findings are listed in the report. Laboratory Results WBC 17.26 10^3/uL (3.29-11.43) H 05/25/24 16:36 RBC 3.10 10^6/uL (3.85-5.65) L 05/25/24 16:36 Hgb 8.80 g/dL (11.27-16.99) L 05/25/24 16:36 Hct 29.4 % (37-53) L 05/25/24 16:36 MCV 94.8 fl (82-101) 05/25/24 16:36 MCH 28.4 pg (27-33) 05/25/24 16:36 MCHC 29.9 g/dL (30-55) L 05/25/24 16:36 RDW 16.2 % (12.1-15.1) H 05/25/24 16:36 Plt Count 238 10^3/cmm (157-399) 05/25/24 16:36 MPV 10.7 fL (7.4-10.4) H 05/25/24 16:36 Neut % (Auto) 92.4 % 05/25/24 16:36 Lymph % (Auto) 3.7 % 05/25/24 16:36 Ness % (Auto) 2.0 % 05/25/24 16:36 Eos % (Auto) 0.1 % 05/25/24 16:36 Baso % (Auto) 0.4 % 05/25/24 16:36 Neut # (Auto) 15.94 10^3/uL (1.8-7.7) H 05/25/24 16:36 Lymph # (Auto) 0.6 10^3/uL (0.8-4.8) L 05/25/24 16:36 Ness # (Auto) 0.4 10^3/uL (0.2-0.9) 05/25/24 16:36 Eos # (Auto) 0.0 10^3/uL (0.0-0.8) 05/25/24 16:36 Baso # (Auto) 0.1 10^3/uL (0.0-0.1) 05/25/24 16:36 Nucleated RBC % (auto) 0.2 % 05/25/24 16:36 Nucleated RBCs # 0.0 /100WBC 05/25/24 16:36 Sodium 131 mmol/L (136-145) L 05/25/24 16:36 Potassium 4.1 mmol/L (3.5-5.1) 05/25/24 16:36 Chloride 92 mmol/L (98-107) L 05/25/24 16:36 Carbon Dioxide 27 mmol/L (22-29) 05/25/24 16:36 Anion Gap 16.1 (5-19) 05/25/24 16:36 BUN 22 mg/dL (8-23) 05/25/24 16:36 Creatinine 0.8 mg/dL (0.7-1.2) 05/25/24 16:36 GFR Calculation 96.1 mL/min (90-130) 05/25/24 16:36 Glucose 184 mg/dL (65-115) H 05/25/24 16:36 Calculated Osmolality 280 mOsm/kg (285-295) L 05/25/24 16:36 Calcium 8.0 mg/dL (8.5-10.5) L 05/25/24 16:36 Total Bilirubin 0.8 mg/dL (0.15-1.2) 05/25/24 16:36 AST 113 U/L (0-40) H 05/25/24 16:36 ALT 44 U/L (0-41) H 05/25/24 16:36 Alkaline Phosphatase 311 U/L (40-130) H 05/25/24 16:36 Total Protein 6.4 g/dL (6.6-8.7) L 05/25/24 16:36 Albumin 3.1 g/dL (3.5-5.2) L 05/25/24 16:36 Globulin 3.3 g/dL (1.3-4.6) 05/25/24 16:36 All radiology interpretation(s) finalized by discharge Discharge Plan Discharge Patient Disposition: Home Clinical Impression: Pancreatic cancer, Vomiting Condition: Stable Prescriptions: New cephalexin 500 mg capsule 500 mg PO TID 7 Days Qty: 21 0RF ondansetron 4 mg tablet,disintegrating 4 mg PO Q6H PRN (Reason: nausea and vomiting) Qty: 14 0RF No Action albuterol sulfate 90 mcg/actuation HFA aerosol inhaler 2 puff inhalation 6XD PRN (Reason: shortness of breath or wheezing) 30 Days Qty: 18 3RF morphine 15 mg tablet extended release PO scopolamine base 1 mg over 3 days patch 3 day 1 patch transdermal Q3D PRN (Reason: nausea and vomiting) Qty: 24 0RF nitroglycerin 0.4 mg tablet, sublingual 0.4 mg SUBLINGUAL Q5M PRN (Reason: chest pain) Qty: 25 6RF Rx Instructions: until response; do not exceed 3 doses per episode spironolactone 25 mg tablet 25 mg PO DAILY Qty: 90 3RF isosorbide mononitrate 30 mg tablet extended release 24 hr 30 mg PO DAILY Qty: 90 3RF Bevespi Aerosphere 9-4.8 mcg HFA aerosol inhaler 2 inh inhalation BID Qty: 10.7 6RF atorvastatin 40 mg tablet 40 mg PO DAILY Qty: 90 3RF valsartan 40 mg tablet 40 mg PO DAILY Qty: 90 2RF aspirin 81 mg Tablet,Delayed Release (Dr/Ec) 81 mg PO DAILY Hold Instructions: Resume on 08/29/22. Discharge Orders: Discharge ED (Routine); Ordered 05/25/24 Ordered By: Carlos Mishra Referrals: Grant Larose, [employer] [Primary Care Provider] - 4-7 days Discharge Diet: Advance as tolerated Discharge Activity: Resume usual activity Patient Instructions: Pancreatic Cancer (DC), Acute Nausea and Vomiting (ED) Coding Level of Care Code ED C Python Developer for Chg Fwd Related Data Home Medications Medication Instructions Recorded Confirmed aspirin 81 mg tablet,delayed 81 mg PO DAILY 07/25/22 05/24/24 release morphine 15 mg tablet,extended mg PO 05/24/24 05/24/24 release Previous Rx's Medication Instructions Recorded albuterol sulfate 90 mcg/actuation 2 puff inhalation 6XD PRN 09/13/20 aerosol inhaler shortness of breath or wheezing 30 days #18 grams nitroglycerin 0.4 mg sublingual 0.4 mg sublingual Q5M PRN chest 04/22/23 tablet pain #25 tabs isosorbide mononitrate 30 mg 30 mg PO DAILY #90 tabs 05/06/23 tablet,extended release 24 hr spironolactone 25 mg tablet 25 mg PO DAILY #90 tabs 05/06/23 glycopyrrolate 9 mcg-formoterol 2 inh inhalation BID #10.7 grams 06/20/23 4.8 mcg HFA aerosol inhaler (Bevespi Aerosphere) atorvastatin 40 mg tablet 40 mg PO DAILY #90 tabs 07/30/23 valsartan 40 mg tablet 40 mg PO DAILY #90 tabs 12/26/23 scopolamine base 1 mg over 3 days 1 patch transdermal Q3D PRN nausea 05/24/24 transdermal patch and vomiting #24 ea cephalexin 500 mg capsule 500 mg PO TID 7 days #21 caps 05/25/24 ondansetron 4 mg disintegrating 4 mg PO Q6H PRN nausea and 05/25/24 tablet vomiting #14 tabs Allergies Allergy/AdvReac Type Severity Reaction Status Date / Time No Known Allergies Allergy Verified 05/24/24 10:15
[2024-05-25 18:15] VITALS: BP 98/60; RESP 18; O2SAT 94
[2024-05-25 19:00] VITALS: BP 98/64; PULSE 81; RESP 18; O2SAT 94
[2024-05-25] MEDS: cefTRIAXone 1,000 mg SDV 1000 MG IVP (20:11)
[2024-05-25 20:15] VITALS: BP 97/62; PULSE 80; RESP 16; O2SAT 93
[2024-05-25] MEDS: ondansetron 4 MG Tablet PO (20:16)
[2024-05-25 20:55] LABS: Bilirubin Urine Negative (Negative); Blood Urine Negative (Negative); Glucose Urine UA Negative (Normal); Ketones Urine Negative (Negative); Leukocyte Esterase Urine Negative (Negative); Nitrate Urine Negative (Negative); Protein Urine 2+ (Negative); Urine Appearance Clear (CLEAR); Urine Color Dark Yellow (Yellow); pH Urine 5.5 (5-7)
[2024-05-25 21:00] LABS: Add Urine Microscopic? YES; Bacteria Urine None Seen /hpf; RBC Urine 0-2 /hpf (0-2); Squamous Epithelial Cell Urine 0-5 /hpf (0-5); WBC Urine 0-5 /hpf (0-5)
[2024-05-25 21:07] LABS: Specific Gravity, Urine 1.068 (1.005-1.030)
[2024-05-25 21:21] VITALS: BP 90/66; PULSE 88; RESP 16; O2SAT 96
--- NOTE | 2024-05-26 10:14 | DCPLANNER ---
Home Health Referral submitted
== END 2024-05-25 21:24 | disposition home or self-care (01) ==
PROVIDERS: Emergency Provider Emergency Medicine; PCP Nurse Practitioner
DX: C25.9 Malignant neoplasm of pancreas, unspecified (principal); R11.10 Vomiting, unspecified; J44.9 Chronic obstructive pulmonary disease, unspecified; I10 Essential (primary) hypertension; I25.10 Atherosclerotic heart disease of native coronary artery without angina pectoris; Z87.891 Personal history of nicotine dependence; Z79.82 Long term (current) use of aspirin; Z79.02 Long term (current) use of antithrombotics/antiplatelets; E78.5 Hyperlipidemia, unspecified
CPT/HCPCS: 36415; 71045; 74177; 80053; 81001; 85025; 96361; 96374; 96375; 99285; J0696; J2405; J7040; Q0162

== ENCOUNTER 2024-05-31 14:26 | Emergency (ER) | payer MEDICARE, SELFPAY ==
[2024-05-31 14:46] VITALS: BP 111/68; PULSE 85; RESP 16; TEMP 36.9; O2SAT 99
--- NOTE | 2024-05-31 15:13 | XR_ITS ---
WS: [email or web address] Exam: XR chest 1V portable [id number] Date/Time of Exam: 05/31/2024 3:21 PM Reason For Exam: dyspnea/cough Comparison 05/25/2024. The lungs are fully inflated and clear. Normal cardiomediastinal silhouette for technique. No pleural effusions. Bony structures are intact. XR/XR chest 1V portable [id number] IMPRESSION: 1. Negative chest.
--- NOTE | 2024-05-31 15:27 | CT_ITS ---
WS: [email or web address] Exam: CT abdomen pelvis w con* [id number] Date/Time of Exam: 05/31/2024 3:38 PM Reason For Exam: abd pain DLP: 635.[address] scans at [facility] use at least one of these dose optimization techniques: automated e xposure control; mA and/or kV adjustment per patient size (includes targeted exams where dose is matc hed to clinical indication); or iterative reconstruction. Comparison 05/25/2024. Mild chronic changes in the lower lung zones. Transhepatic biliary drain noted, gastrotomy-jejunostomy tube in place in satisfactory location. Katiuska ral scattered low-attenuation nodules in the liver that may represent metastatic disease. Mild pneumo bilia. Small cyst seen along the anterior margin of the RIGHT hepatic lobe. Moderate fluid distention of the stomach. The spleen is unremarkable. There is a new area of low-attenuation possibly nonperfu jaye at the posterior aspect of the lower pole of the RIGHT kidney. This could be due to infarct or i nfection. Unremarkable LEFT kidney other than tiny cysts. Several small bilateral renal cysts are not ed. No renal obstruction identified. Normal adrenal glands. The IVC is patent. Again noted is ill-def ined mass with enlargement involving the head of the pancreas. Chronic dilatation of the pancreatic d uct. Jejunostomy tube noted unchanged in position. Aneurysm of the lower abdominal aorta with mural t hrombus unchanged. It measures about 4.4 cm in greatest diameter. No dissection noted. No sign of acu te appendix. No mass or adenopathy in the pelvis. Benign-appearing pelvic calcification noted. Intact urinary bladder. Minimal colonic diverticulosis. Degenerative changes of the lower thoracic and lumb ar spine. CT/CT abdomen pelvis w con* [id number] IMPRESSION: 1. New area of [id number] in the posterior aspect of the lowe r pole of the RIGHT kidney. This could represent a renal infarct or less likely could be secondary to infection. 2. Stable appearing transhepatic biliary drain as well as gastrotomy and jejuno stomy tube in place. 3. Mass and/or-necrosis involving the pancreatic head unchanged in appearance. 4. Several low-attenuation nodules in the liver most likely representing metast atic disease. 5. Stable appearing abdominal aortic aneurysm. Other stable findings as above.
[2024-05-31 15:34] LABS: Basophils # 0.1 10^3/uL (0.0-0.1); Basophils % 0.4 %; Eosinophils % 0.2 %; Hematocrit 29.3 % (37-53); Lymphocytes # 0.9 10^3/uL (0.8-4.8); Lymphocytes % 5.4 %; Mean Corpuscular HGB Conc 29.7 g/dL (30-55); Mean Corpuscular Hemoglobin 27.4 pg (27-33); Mean Corpuscular Volume 92.1 fl (82-101); Mean Platelet Volume 10.3 fL (7.4-10.4); Monocytes # 0.5 10^3/uL (0.2-0.9); Monocytes % 2.7 %; Neutrophils # 14.65 10^3/uL (1.8-7.7); Neutrophils % 86.5 %; Nucleated Red Blood Cells # 0.1 /100WBC; Nucleated Red Blood Cells % 0.4 %; Platelet Count 234 10^3/cmm (157-399); Red Blood Count 3.18 10^6/uL (3.85-5.65); Red Cell Distribution Width 16.5 % (12.1-15.1); White Blood Count 16.93 10^3/uL (3.29-11.43)
[2024-05-31] MEDS: ondansetron 2 mg/ML SDV 2 mL 4 MG IVP (15:34)
[2024-05-31] MEDS: sodium chloride 0.9% 1,000 ML 999 ML IV (15:34)
[2024-05-31] MEDS: iohexol 350 mg/mL 500 mL Btl (per mL) IV (15:49)
[2024-05-31 15:54] LABS: Alanine Aminotransferase 36 U/L (0-41); Albumin Level 3.2 g/dL (3.5-5.2); Alkaline Phosphatase 241 U/L (40-130); Anion Gap 14.2 (5-19); Aspartate Amino Transferase 29 U/L (0-40); Blood Urea Nitrogen 12 mg/dL (8-23); Calcium 8.3 mg/dL (8.5-10.5); Carbon Dioxide 26 mmol/L (22-29); Chloride 91 mmol/L (98-107); Creatine Phosphokinase 18 U/L (39-308); Creatinine Clr Calc Pharmacy 90.4465; Globulin 4.1 g/dL (1.3-4.6); Glomerular Filtration Rate 96.1 mL/min (90-130); Glucose 117 mg/dL (65-115); Lipase 29 U/L (13-60); Magnesium 2.1 mg/dL (1.7-2.3); Osmolality Calculated 265 mOsm/kg (285-295); Potassium 4.2 mmol/L (3.5-5.1); Sodium 127 mmol/L (136-145); Total Bilirubin 0.9 mg/dL (0.15-1.2); Total Protein 7.3 g/dL (6.6-8.7)
[2024-05-31 15:55] LABS: Lactic Sepsis W/Reflex 1.5 mmol/L (0.5-2.2)
[2024-05-31 16:01] LABS: Gastricult Occult Blood Positive (Negative)
--- NOTE | 2024-05-31 16:47 | ED_ITS ---
HPI - Nausea/Vomiting/Diarrhea 2 General: Chief complaint: Nausea/Vomiting/Diarrhea Stated complaint: n,v,weak Time Seen by Provider: 05/31/24 14:59 History of Present Illness: 68-year-old male presents emergency room today with nausea and vomiting for the last couple days. He has a gastrostomy tube in place he also has a drain for his liver. He has a known history of pancreatic cancer with metastasis. He has not been able to use his feeding tube it is making him sick he is also been getting having nausea and vomiting with any attempted p.o. intake. He has not had any treatment for his cancer they have basically been providing palliative treatment. Patient vomited shortly after arrival here, did test Gastroccult positive he is not had any gross hematemesis or gross hematochezia. Associated nausea: Yes Associated symtoms: Reports nausea; Denies chest pain or dysuria Related Data Home Medications Medication Instructions Recorded Confirmed aspirin 81 mg tablet,delayed 81 mg PO DAILY 07/25/22 05/28/24 release morphine 15 mg tablet,extended mg PO 05/24/24 05/28/24 release Previous Rx's Medication Instructions Recorded albuterol sulfate 90 mcg/actuation 2 puff inhalation 6XD PRN 09/13/20 aerosol inhaler shortness of breath or wheezing 30 days #18 grams nitroglycerin 0.4 mg sublingual 0.4 mg sublingual Q5M PRN chest 04/22/23 tablet pain #25 tabs isosorbide mononitrate 30 mg 30 mg PO DAILY #90 tabs 05/06/23 tablet,extended release 24 hr spironolactone 25 mg tablet 25 mg PO DAILY #90 tabs 05/06/23 glycopyrrolate 9 mcg-formoterol 2 inh inhalation BID #10.7 grams 06/20/23 4.8 mcg HFA aerosol inhaler (Bevespi Aerosphere) atorvastatin 40 mg tablet 40 mg PO DAILY #90 tabs 07/30/23 valsartan 40 mg tablet 40 mg PO DAILY #90 tabs 12/26/23 ondansetron 4 mg disintegrating 4 mg PO Q6H PRN nausea and 05/25/24 tablet vomiting #14 tabs atropine 1 % eye drops 4 drp sublingual Q4H PRN 05/31/24 Secretions #5 mL bisacodyl 10 mg rectal suppository 10 mg MI DAILY PRN Constipation #5 05/31/24 (Dulcolax (bisacodyl)) ea diphenhydramine HCl 25 mg tablet 25 mg PO Q4H PRN Allergic Reaction 05/31/24 #5 tabs hydroxyzine HCl 25 mg tablet 25 mg PO TID PRN Itching #5 tabs 05/31/24 lorazepam 2 mg/mL oral concentrate 2 mg sublingual Q4H PRN 05/31/24 Anxiety/Seizure #30 mL morphine concentrate 100 mg/5 mL 20 mg sublingual DIRECTED PRN 05/31/24 (20 mg/mL) oral solution Pain/SOB 14 days #30 mL ondansetron 4 mg disintegrating 4 mg translingual Q4H PRN Nausea 05/31/24 tablet #5 tabs Allergies Allergy/AdvReac Type Severity Reaction Status Date / Time No Known Allergies Allergy Verified 05/31/24 14:49 Review of Systems 2 Const: Denies: fever(s) or chills Card: Denies: chest pain Resp: Denies: dyspnea GI: Reports: abdominal pain, nausea, vomiting and coffee ground emesis : Denies: dysuria, urinary frequency or urinary urgency Musc: Denies: neck pain or back pain Skin/Breast: Denies: rash PFSH ED 2 PFSH: Medical History COPD exacerbation Abdominal aortic aneurysm COPD (chronic obstructive pulmonary disease) Dyslipidemia HTN (hypertension) Smoker CAD (coronary artery disease) Surgical History History of transurethral resection of bladder tumor (TURBT) History of cholecystectomy S/P coronary artery stent placement Family History Mother , AT AGE 64 Heart attack Father , AT AGE 66 Cancer LUNG Other CAD (coronary artery disease) Social History Smoking and tobacco/nicotine status: former use of tobacco/nicotine Quit status (tobacco/nicotine): has quit using Year quit tobacco: 2021 ( July) Former quit date comment: HX of 2 ppd X 53 years Second hand smoke exposure: No Alcohol intake: current Alcohol intake frequency: few times a week Alcohol type: beer Substance/Drug Use: unknown Adopted: No Lives independently: Yes Household members: spouse Housing: House Marital status: Current occupational status: disabled Do you think of yourself as: Straight/Heterosexual Current gender identity: Male Physical Exam 2 Const: GENERAL APPEARANCE: cooperative ORIENTATION/CONSCIOUSNESS: Yes awake, Yes oriented to person, Yes oriented to place and Yes oriented to time HENMT: COMMON NORMALS: normocephalic, atraumatic and hearing grossly normal bilaterally HEAD & SCALP: normocephalic and atraumatic Resp: COMMON NORMALS: normal respiratory effort, No retractions, No use of accessory muscles and clear to auscultation bilaterally AUSCULTATION: clear to auscultation bilaterally Cardio: COMMON NORMALS: regular rate, regular rhythm and No murmurs present (Cardio) RATE: regular rate RHYTHM: regular rhythm GI: AUSCULTATION: Yes normoactive bowel sounds PALPATION: Yes Tenderness to palpation present (GI) and No Guarding due to palpation present (GI) OTHER: PEG tube in place Extremity: COMMON NORMALS: normal to inspection, capillary refill normal, no clubbing, cyanosis or edema, no calf tenderness and no pedal edema Neuro: SENSORIUM/ORIENTATION: Yes oriented to person, Yes oriented to place and Yes oriented to time Skin: COMMON NORMALS: no rashes or lesions noted GENERAL SKIN EXAM: no rashes or lesions noted Course 2 Vital Signs: Vital signs: Vital Signs Temperature 98.4 F 05/31/24 14:46 Pulse Rate 80 05/31/24 18:50 Respiratory Rate 16 05/31/24 17:00 Blood Pressure 128/72 05/31/24 18:50 Pulse Oximetry 95 05/31/24 18:50 Oxygen Delivery Me thod Room Air 05/31/24 18:00 MDM - Nausea/Vomiting/Diarrhea Medical Decision Making Discussed different options with the patient. We can admit him to try to hydrate to improve his overall condition however this does not treat his underlying cause. At this point he is not even able to use his PEG tube. Ultimately he and his family decided to opt for hospice. Reviewed with him findings of the CT and the labs. Will discharge patient home hospice will see him in his home hospice comfort pack given Medical Records I reviewed the patient's medical records. Lab Data I reviewed the patient's lab results. 05/31/24 15:26 05/31/24 15:26 Radiology Impressions Chest X-Ray 05/31/24 15:13 IMPRESSION: 1. Negative chest. Abdomen/Pelvis CT 05/31/24 15:27 IMPRESSION: 1. New area of [id number] in the posterior aspect of the lower pole of the RIGHT kidney. This could represent a renal infarct or less likely could be secondary to infection. 2. Stable appearing transhepatic biliary drain as well as gastrotomy and jejunostomy tube in place. 3. Mass and/or-necrosis involving the pancreatic head unchanged in appearance. 4. Several low-attenuation nodules in the liver most likely representing metastatic disease. 5. Stable appearing abdominal aortic aneurysm. Other stable findings as above. Laboratory Results WBC 16.93 10^3/uL (3.29-11.43) H 05/31/24 15: RBC 3.18 10^6/uL (3.85-5.65) L 05/31/24 15:26 Hgb 8.70 g/dL (11.27-16.99) L 05/31/24 15:26 Hct 29.3 % (37-53) L 05/31/24 15: MCV 92.1 fl (82-101) 05/31/24 15: MCH 27.4 pg (27-33) 05/31/24 15: MCHC 29.7 g/dL (30-55) L 05/31/24 15:26 RDW 16.5 % (12.1-15.1) H 05/31/24 15: Plt Count 234 10^3/cmm (157-399) 05/31/24 15: MPV 10.3 fL (7.4-10.4) 05/31/24 15: Neut % (Auto) 86.5 % 05/31/24 15: Lymph % (Auto) 5.4 % 05/31/24 15: [place] % (Auto) 2.7 % 05/31/24 15: Eos % (Auto) 0.2 % 05/31/24 15: Baso % (Auto) 0.4 % 05/31/24 15: Neut # (Auto) 14.65 10^3/uL (1.8-7.7) H 05/31/24 15:26 Lymph # (Auto) 0.9 10^3/uL (0.8-4.8) 05/31/24 15:26 [place] # (Auto) 0.5 10^3/uL (0.2-0.9) 05/31/24 15:26 Eos # (Auto) 0.0 10^3/uL (0.0-0.8) 05/31/24 15:26 Baso # (Auto) 0.1 10^3/uL (0.0-0.1) 05/31/24 15:26 Nucleated RBC % (auto) 0.4 % 05/31/24 15: Nucleated RBCs # 0.1 /100WBC 05/31/24 15:26 Sodium 127 mmol/L (136-145) L 05/31/24 15:26 Potassium 4.2 mmol/L (3.5-5.1) 05/31/24 15:26 Chloride 91 mmol/L (98-107) L 05/31/24 15:26 Carbon Dioxide 26 mmol/L (22-29) 05/31/24 15:26 Anion Gap 14.2 (5-19) 05/31/24 15:26 BUN 12 mg/dL (8-23) 05/31/24 15:26 Creatinine 0.8 mg/dL (0.7-1.2) 05/31/24 15:26 GFR Calculation 96.1 mL/min (90-130) 05/31/24 15:26 Glucose 117 mg/dL (65-115) H 05/31/24 15:26 Calculated Osmolality 265 mOsm/kg (285-295) L 05/31/24 15:26 Lactic Acid 1.5 mmol/L (0.5-2.2) 05/31/24 15:26 Calcium 8.3 mg/dL (8.5-10.5) L 05/31/24 15:26 Magnesium 2.1 mg/dL (1.7-2.3) 05/31/24 15:26 Total Bilirubin 0.9 mg/dL (0.15-1.2) 05/31/24 15:26 AST 29 U/L (0-40) 05/31/24 15:26 ALT 36 U/L (0-41) 05/31/24 15:26 Alkaline Phosphatase 241 U/L (40-130) H 05/31/24 15:26 Creatine Kinase 18 U/L (39-308) L 05/31/24 15:26 Total Protein 7.3 g/dL (6.6-8.7) 05/31/24 15:26 Albumin 3.2 g/dL (3.5-5.2) L 05/31/24 15:26 Globulin 4.1 g/dL (1.3-4.6) 05/31/24 15:26 Lipase 29 U/L (13-60) 05/31/24 15:26 Gastric Occult Blood Positive (Negative) H 05/31/24 15:40 All radiology interpretation(s) finalized by discharge Discharge Plan Discharge Patient Disposition: Home Clinical Impression: Pancreatic cancer Condition: Stable Prescriptions: New morphine concentrate 100 mg/5 mL (20 mg/mL) Solution 20 mg sublingual DIRECTED MDD N/A PRN (Reason: Pain/SOB) 14 Days Qty: 30 0RF Rx Instructions: 0.25ml-1ml q1H PRN may increase to 0.5ml-1ml Q1H PRN bisacodyl [Dulcolax (bisacodyl)] 10 mg Suppository 10 mg MI DAILY PRN (Reason: Constipation) Qty: 5 0RF Rx Instructions: 1 suppository per rectum every day PRN for constipation. diphenhydramine HCl 25 mg Tablet 25 mg PO Q4H PRN (Reason: Allergic Reaction) Qty: 5 0RF Rx Instructions: Take one tablet by mouth every 4 hours as needed for allergic reaction hydroxyzine HCl 25 mg Tablet 25 mg PO TID PRN (Reason: Itching) Qty: 5 0RF Rx Instructions: Take 1 tablet by mouth as needed three times a day for itching atropine 1 % Drops 4 drp sublingual Q4H PRN (Reason: Secretions) Qty: 5 0RF Rx Instructions: 4 drops SL q 4 hours PRN for terminal congestion/excessive secretions. ondansetron 4 mg Tablet,Disintegrating 4 mg translingual Q4H PRN (Reason: Nausea) Qty: 5 0RF Rx Instructions: Dissolve 1 tablet under tongue every 4 hours PRN for nausea lorazepam 2 mg/mL Concentrate 2 mg sublingual Q4H PRN (Reason: Anxiety/Seizure) Qty: 30 0RF Rx Instructions: 0.25ml-1ml q4H PRN Anxiety/Seizure Start 0.25ml may increase to 0.5ml-1ml q4H No Action albuterol sulfate 90 mcg/actuation HFA aerosol inhaler 2 puff inhalation 6XD PRN (Reason: shortness of breath or wheezing) 30 Days Qty: 18 3RF morphine 15 mg tablet extended release PO nitroglycerin 0.4 mg tablet, sublingual 0.4 mg SUBLINGUAL Q5M PRN (Reason: chest pain) Qty: 25 6RF Rx Instructions: until response; do not exceed 3 doses per episode spironolactone 25 mg tablet 25 mg PO DAILY Qty: 90 3RF isosorbide mononitrate 30 mg tablet extended release 24 hr 30 mg PO DAILY Qty: 90 3RF Bevespi Aerosphere 9-4.8 mcg HFA aerosol inhaler 2 inh inhalation BID Qty: 10.7 6RF atorvastatin 40 mg tablet 40 mg PO DAILY Qty: 90 3RF valsartan 40 mg tablet 40 mg PO DAILY Qty: 90 2RF ondansetron 4 mg tablet,disintegrating 4 mg PO Q6H PRN (Reason: nausea and vomiting) Qty: 14 0RF aspirin 81 mg Tablet,Delayed Release (Dr/Ec) 81 mg PO DAILY Hold Instructions: Resume on 08/23/22. Discharge Orders: Discharge ED (Routine); Ordered 05/31/24 Ordered By: Heber Gómez Referrals: Grant Larose, GUEST RELATION OFFICER-C [Primary Care Provider] - Discharge Activity: Resume usual activity Patient Instructions: Opioid Safety, Pain Management Activity Restrictions/Additional Instructions: Thank you for choosing [facility] for your healthcare needs today. It is very important that you follow up as instructed or that you return to the Emergency Department should you have concerns or if your condition changes or worsens in any way. You are seen today for persistent nausea and vomiting. This is likely due to advancement of your pancreatic cancer. CT did not show any new acute changes on the CT of your abdomen. Your white count is elevated. We have discussed admission you would prefer to be discharged home with a cost hospice consult. We gave you a prescription for initial hospice medications. Case management make arrangements for hospice to evaluate you at home. Coding Level of Care Code ED Sampler Radioactive Waste for Henry Ibarra
[2024-05-31 17:00] VITALS: BP 115/63; PULSE 78; RESP 16; O2SAT 94
[2024-05-31] MEDS: pantoprazole 40 mg SDV 80 MG IVP (17:13)
[2024-05-31 18:00] VITALS: BP 116/72; PULSE 78; O2SAT 94
[2024-05-31 18:50] VITALS: BP 128/72; PULSE 80; O2SAT 95
== END 2024-05-31 18:52 | disposition home or self-care (01) ==
PROVIDERS: Emergency Provider Family Medicine; PCP Nurse Practitioner
DX: C25.9 Malignant neoplasm of pancreas, unspecified (principal); Z79.82 Long term (current) use of aspirin; J44.1 Chronic obstructive pulmonary disease with (acute) exacerbation; Z87.891 Personal history of nicotine dependence; I10 Essential (primary) hypertension; I25.10 Atherosclerotic heart disease of native coronary artery without angina pectoris
CPT/HCPCS: 36415; 71045; 74177; 80053; 82271; 82550; 83605; 83690; 83735; 85025; 87040; 96361; 96374; 96375; 99285; J2405; J2470; J7030

== ENCOUNTER 2024-06-04 16:44 | Emergency (ER) | payer MEDICARE, SELFPAY ==
[2024-06-04] VITALS (8 sets, daily range): BP systolic 108–127; BP diastolic 63–86; PULSE 80–101; RESP 16; TEMP 36.4; O2SAT 93–97
--- NOTE | 2024-06-04 18:51 | CTR_ITS ---
PROCEDURE INFORMATION: Exam: CT Abdomen And Pelvis With Contrast Exam date and time: 06/04/2024 7:07 PM Age: 68 years old Clinical indication: Nausea and vomiting; Prior surgery; Surgery date: 6+ months; Surgery type: Peg tube. Biliary drain; Patient HX: C/O intractable n/v. History of pancreatic cacner. ; Additional info: Uncontrolled n/v, pancreatic cancer TECHNIQUE: Imaging protocol: Computed tomography of the abdomen and pelvis with contrast. Radiation optimization: All CT scans at this facility use at least one of these dose optimization techniques: automated exposure control; mA and/or kV adjustment per patient size (includes targeted exams where dose is matched to clinical indication); or iterative reconstruction. Contrast material: OMNI 350; Contrast volume: 100 ml; Contrast route: INTRAVENOUS (IV); COMPARISON: CT abdomen pelvis w con* [id number] 05/31/2024 3:44 PM RADIATION DOSE METRICS: Total DLP (mGy-cm): 555.29 FINDINGS: Coronary arteries: Coronary arterial atherosclerotic calcifications are present. Liver: Normal. No mass. Gallbladder and biliary ducts: Percutaneous common biliary stent in place. Pancreas: Dilatation of the pancreatic duct is again demonstrated. Spleen: Wedge-shaped hypodensity in the posterolateral cortex of the right kidney again demonstrated which can be seen in the setting of splenic infarct. Adrenal glands: Normal. No mass. Kidneys and ureters: Normal. No hydronephrosis. Stomach and bowel: The stomach is distended with fluid. There is a locule of air adjacent to the proximal duodenum and anterior to the head of the pancreas which may represent contained perforation of a duodenal ulcer versus a duodenal diverticulum. Appendix: No evidence of appendicitis. Intraperitoneal space: Unremarkable. No free air. No significant fluid collection. Vasculature: Aneurysmal dilatation of the infrarenal abdominal aorta measuring 4.5 x 4.4 cm, previously 4.5 x 4.4 cm. Lymph nodes: Unremarkable. No enlarged lymph nodes. Urinary bladder: Unremarkable as visualized. Reproductive: Unremarkable as visualized. Bones/joints: Severe degenerative disc disease at T8-T9, T9-T10, T10-T11 and L3-L4 and L4-L5. Soft tissues: Unremarkable. CT/CT abdomen pelvis w con* [id number] IMPRESSION: 1. Percutaneous common biliary stent in place. There is a percutaneous gastrojejunostomy tube in place. Pneumobilia. 2. Wedge-shaped hypodensity in the posterolateral cortex of the right kidney again demonstrated which can be seen in the setting of splenic infarct. 3. There is a locule of air adjacent to the proximal duodenum and anterior to the head of the pancreas which may represent contained perforation of a duodenal ulcer versus an atypical duodenal diverticulum.
--- NOTE | 2024-06-04 18:59 | ED_ITS ---
HPI - Nausea/Vomiting/Diarrhea 2 General: Chief complaint: Nausea/Vomiting/Diarrhea Stated complaint: V, weakness, dehydrated, drainage stomach tube Time Seen by Provider: 06/04/24 18:45 History of Present Illness: Patient resents to the ER with complaints of nausea vomiting worse times the last 2 days, says he is vomited about 10 times a day. Is overall getting weaker. thinks his G-tube is leaking and has a bad odor. Patient does have a history of pancreatic cancer and appears to be on palliative comfort measures. Related Data Home Medications Medication Instructions Recorded Confirmed aspirin 81 mg tablet,delayed 81 mg PO DAILY 07/25/22 05/28/24 release morphine 15 mg tablet,extended mg PO 05/24/24 05/28/24 release Previous Rx's Medication Instructions Recorded albuterol sulfate 90 mcg/actuation 2 puff inhalation 6XD PRN 09/13/20 aerosol inhaler shortness of breath or wheezing 30 days #18 grams nitroglycerin 0.4 mg sublingual 0.4 mg sublingual Q5M PRN chest 04/22/23 tablet pain #25 tabs isosorbide mononitrate 30 mg 30 mg PO DAILY #90 tabs 05/06/23 tablet,extended release 24 hr spironolactone 25 mg tablet 25 mg PO DAILY #90 tabs 05/06/23 glycopyrrolate 9 mcg-formoterol 2 inh inhalation BID #10.7 grams 06/20/23 4.8 mcg HFA aerosol inhaler (Bevespi Aerosphere) atorvastatin 40 mg tablet 40 mg PO DAILY #90 tabs 07/30/23 valsartan 40 mg tablet 40 mg PO DAILY #90 tabs 12/26/23 ondansetron 4 mg disintegrating 4 mg PO Q6H PRN nausea and 05/25/24 tablet vomiting #14 tabs atropine 1 % eye drops 4 drp sublingual Q4H PRN 05/31/24 Secretions #5 mL bisacodyl 10 mg rectal suppository 10 mg UT DAILY PRN Constipation #5 05/31/24 (Dulcolax (bisacodyl)) ea diphenhydramine HCl 25 mg tablet 25 mg PO Q4H PRN Allergic Reaction 05/31/24 #5 tabs hydroxyzine HCl 25 mg tablet 25 mg PO TID PRN Itching #5 tabs 05/31/24 lorazepam 2 mg/mL oral concentrate 2 mg sublingual Q4H PRN 05/31/24 Anxiety/Seizure #30 mL morphine concentrate 100 mg/5 mL 20 mg sublingual DIRECTED PRN 05/31/24 (20 mg/mL) oral solution Pain/SOB 14 days #30 mL ondansetron 4 mg disintegrating 4 mg translingual Q4H PRN Nausea 05/31/24 tablet #5 tabs Allergies Allergy/AdvReac Type Severity Reaction Status Date / Time No Known Allergies Allergy Verified 06/04/24 16:54 Review of Systems 2 General: Reports: 10 or more systems reviewed and unremarkable except in HPI and below PFSH ED 2 PFSH: Medical History COPD exacerbation Abdominal aortic aneurysm COPD (chronic obstructive pulmonary disease) Dyslipidemia HTN (hypertension) Smoker CAD (coronary artery disease) Surgical History History of transurethral resection of bladder tumor (TURBT) History of cholecystectomy S/P coronary artery stent placement Family History Mother , AT AGE 64 Heart attack Father , AT AGE 66 Cancer LUNG Other CAD (coronary artery disease) Social History Smoking and tobacco/nicotine status: former use of tobacco/nicotine Quit status (tobacco/nicotine): has quit using Year quit tobacco: 2021 ( July) Former quit date comment: HX of 2 ppd X 53 years Second hand smoke exposure: No Alcohol intake: current Alcohol intake frequency: few times a week Alcohol type: beer Substance/Drug Use: unknown Adopted: No Lives independently: Yes Household members: spouse Housing: House Marital status: Current occupational status: disabled Do you think of yourself as: Straight/Heterosexual Current gender identity: Male Physical Exam 2 Const: COMMON NORMALS: no acute distress, average body habitus, patient oriented x3, no limitations, healthy appearing, alert and well nourished HENMT: COMMON NORMALS: normocephalic, atraumatic, hearing grossly normal bilaterally, external ears normal, Normal external nose present and moist oral mucous membranes HEAD & SCALP: normocephalic and atraumatic NOSE: Normal external nose present EXTERNAL EAR: Yes external ears normal Neck/C-Spine: COMMON NORMALS: no JVD Chest: COMMONS NORMALS: normal inspection of the chest and normal palpation of entire chest wall Resp: COMMON NORMALS: normal respiratory effort, No retractions, No use of accessory muscles and clear to auscultation bilaterally AUSCULTATION: clear to auscultation bilaterally Cardio: COMMON NORMALS: no JVD, regular rate, regular rhythm, S1 normal heart sound present, S2 normal heart sound present, No gallops present (Cardio), No clicks present (Cardio), No murmurs present (Cardio) and No rub (Cardio) R ATE: regular rate RHYTHM: regular rhythm HEART SOUNDS: S1 normal heart sound present and S2 normal heart sound present GI: COMMON NORMALS: Normal to inspection, nondistended, normoactive bowel sounds present, Soft to palpation, non-tender, No hepatosplenomegaly present and no masses PALPATION: Yes Soft to palpation and Yes No hepatosplenomegaly present OTHER: G-tube and hepatic drain in place. Minimal drainage around G-tube, Neuro: COMMON NORMALS: patient oriented x3 SENSORIUM/ORIENTATION: Yes alert Course 2 Vital Signs: Vital signs: Vital Signs Temperature 97.6 F 06/04/24 16:49 Pulse Rate 82 06/04/24 21:35 Respiratory Rate 16 06/04/24 21:35 Blood Pressure 122/84 06/04/24 21:35 Pulse Oximetry 93 06/04/24 21:35 Oxygen Delivery Me thod Room Air 06/04/24 21:35 MDM - Nausea/Vomiting/Diarrhea Medical Decision Making Lab work and CT scan was discussed discussed with the patient and . Patient and family would like to have the duodenal ulcer fixed even knowing that it will not affect the cancer. [facility] who talked to the general surgeon on-call who said she will take him from a surgical standpoint wants him admitted to the hospitalist. Dr. Hannon the hospitalist was consulted who agreed to place the patient med/tele. Medical Records I reviewed the patient's medical records. Lab Data I reviewed the patient's lab results. 06/04/24 19:29 06/04/24 19:29 Radiology Impressions Abdomen/Pelvis CT 06/04/24 18:51 IMPRESSION: 1. Percutaneous common biliary stent in place. There is a percutaneous gastrojejunostomy tube in place. Pneumobilia. 2. Wedge-shaped hypodensity in the posterolateral cortex of the right kidney again demonstrated which can be seen in the setting of splenic infarct. 3. There is a locule of air adjacent to the proximal duodenum and anterior to the head of the pancreas which may represent contained perforation of a duodenal ulcer versus an atypical duodenal diverticulum. ADDENDUM: 06/04/242003 THIS REPORT CONTAINS FINDINGS THAT MAY BE CRITICAL TO PATIENT CARE. The findings were verbally communicated via telephone conference with Johann Restrepo at 8:02 PM CDT on 06/04/2024. The findings were acknowledged and understood. Laboratory Results WBC 11.59 10^3/uL (3.29-11.43) H 06/04/24 19: RBC 3.00 10^6/uL (3.85-5.65) L 06/04/24: Hgb 8.00 g/dL (11.27-16.99) L 06/04/24: Hct 27.6 % (37-53) L 06/04/24: MCV 92.0 fl (82-101) 06/04/24: MCH 26.7 pg (27-33) L 06/04/24: MCHC 29.0 g/dL (30-55) L 06/04/24 19: RDW 16.7 % (12.1-15.1) H 06/04/24: Plt Count 252 10^3/cmm (157-399) 06/04/24: MPV 10.1 fL (7.4-10.4) 06/04/24: Neut % (Auto) 87.2 % 06/04/24: Lymph % (Auto) 6.2 % 06/04/24: [place] % (Auto) 3.5 % 06/04/24: Eos % (Auto) 0.0 % 06/04/24: Baso % (Auto) 0.3 % 06/04/24: Neut # (Auto) 10.11 10^3/uL (1.8-7.7) H 06/04/24: Lymph # (Auto) 0.7 10^3/uL (0.8-4.8) L 06/04/24 19: [place] # (Auto) 0.4 10^3/uL (0.2-0.9) 06/04/24 19: Eos # (Auto) 0.0 10^3/uL (0.0-0.8) 06/04/24 19: Baso # (Auto) 0.0 10^3/uL (0.0-0.1) 06/04/24 19: Nucleated RBC % (auto) 0.3 % 06/04/24 19: Nucleated RBCs # 0.0 /100WBC 06/04/24 19: Sodium 134 mmol/L (136-145) L 06/04/24 19: Potassium 3.6 mmol/L (3.5-5.1) 06/04/24 19: Chloride 90 mmol/L (98-107) L 06/04/24 19: Carbon Dioxide 27 mmol/L (22-29) 06/04/24 19: Anion Gap 20.6 (5-19) H 06/04/24 19:29 BUN 22 mg/dL (8-23) 06/04/24 19: Creatinine 0.7 mg/dL (0.7-1.2) 06/04/24 19: GFR Calculation 112.1 mL/min (90-130) 06/04/24 19: Glucose 136 mg/dL (65-115) H 06/04/24 19: Calculated Osmolality 283 mOsm/kg (285-295) L 06/04/24 19: Calcium 8.0 mg/dL (8.5-10.5) L 06/04/24 19: Magnesium 2.1 mg/dL (1.7-2.3) 06/04/24 19: Total Bilirubin 0.8 mg/dL (0.15-1.2) 06/04/24 19:29 AST 19 U/L (0-40) 06/04/24 19:29 ALT 26 U/L (0-41) 06/04/24 19:29 Alkaline Phosphatase 248 U/L (40-130) H 06/04/24 19:29 Total Protein 6.5 g/dL (6.6-8.7) L 06/04/24 19:29 Albumin 2.8 g/dL (3.5-5.2) L 06/04/24 19:29 Globulin 3.7 g/dL (1.3-4.6) 06/04/24 19:29 All radiology interpretation(s) finalized by discharge Discharge Plan Discharge Patient Disposition: Xfer Short-Term Hosp Clinical Impression: Duodenal ulcer, perforated, Pancreatic cancer Condition: Stable Prescriptions: No Action albuterol sulfate 90 mcg/actuation HFA aerosol inhaler 2 puff inhalation 6XD PRN (Reason: shortness of breath or wheezing) 30 Days Qty: 18 3RF morphine 15 mg tablet extended release PO nitroglycerin 0.4 mg tablet, sublingual 0.4 mg SUBLINGUAL Q5M PRN (Reason: chest pain) Qty: 25 6RF Rx Instructions: until response; do not exceed 3 doses per episode spironolactone 25 mg tablet 25 mg PO DAILY Qty: 90 3RF isosorbide mononitrate 30 mg tablet extended release 24 hr 30 mg PO DAILY Qty: 90 3RF Bevespi Aerosphere 9-4.8 mcg HFA aerosol inhaler 2 inh inhalation BID Qty: 10.7 6RF atorvastatin 40 mg tablet 40 mg PO DAILY Qty: 90 3RF valsartan 40 mg tablet 40 mg PO DAILY Qty: 90 2RF ondansetron 4 mg tablet,disintegrating 4 mg PO Q6H PRN (Reason: nausea and vomiting) Qty: 14 0RF aspirin 81 mg Tablet,Delayed Release (Dr/Ec) 81 mg PO DAILY Hold Instructions: Resume on 08/29/22. morphine concentrate 100 mg/5 mL (20 mg/mL) Solution 20 mg sublingual DIRECTED MDD N/A PRN (Reason: Pain/SOB) 14 Days Qty: 30 0RF Rx Instructions: 0.25ml-1ml q1H PRN may increase to 0.5ml-1ml Q1H PRN bisacodyl [Dulcolax (bisacodyl)] 10 mg Suppository 10 mg UT DAILY PRN (Reason: Constipation) Qty: 5 0RF Rx Instructions: 1 suppository per rectum every day PRN for constipation. diphenhydramine HCl 25 mg Tablet 25 mg PO Q4H PRN (Reason: Allergic Reaction) Qty: 5 0RF Rx Instructions: Take one tablet by mouth every 4 hours as needed for allergic reaction hydroxyzine HCl 25 mg Tablet 25 mg PO TID PRN (Reason: Itching) Qty: 5 0RF Rx Instructions: Take 1 tablet by mouth as needed three times a day for itching atropine 1 % Drops 4 drp sublingual Q4H PRN (Reason: Secretions) Qty: 5 0RF Rx Instructions: 4 drops SL q 4 hours PRN for terminal congestion/excessive secretions. ondansetron 4 mg Tablet,Disintegrating 4 mg translingual Q4H PRN (Reason: Nausea) Qty: 5 0RF Rx Instructions: Dissolve 1 tablet under tongue every 4 hours PRN for nausea lorazepam 2 mg/mL Concentrate 2 mg sublingual Q4H PRN (Reason: Anxiety/Seizure) Qty: 30 0RF Rx Instructions: 0.25ml-1ml q4H PRN Anxiety/Seizure Start 0.25ml may increase to 0.5ml-1ml q4H Referrals: Grant Larose FNP-C [Primary Care Provider] - Coding Level of Care Code ED Elementary Instructional Coach for [facility]
[2024-06-04] MEDS: iohexol 350 mg/mL 500 mL Btl (per mL) IV (19:11)
[2024-06-04] MEDS: ondansetron 2 mg/ML SDV 2 mL 4 MG IVP ×2 (19:19→23:30)
[2024-06-04 19:37] LABS: Basophils % 0.3 %; Hematocrit 27.6 % (37-53); Lymphocytes # 0.7 10^3/uL (0.8-4.8); Lymphocytes % 6.2 %; Mean Corpuscular Hemoglobin 26.7 pg (27-33); Mean Platelet Volume 10.1 fL (7.4-10.4); Monocytes # 0.4 10^3/uL (0.2-0.9); Monocytes % 3.5 %; Neutrophils # 10.11 10^3/uL (1.8-7.7); Neutrophils % 87.2 %; Nucleated Red Blood Cells % 0.3 %; Platelet Count 252 10^3/cmm (157-399); Red Cell Distribution Width 16.7 % (12.1-15.1); White Blood Count 11.59 10^3/uL (3.29-11.43)
[2024-06-04 19:57] LABS: Alanine Aminotransferase 26 U/L (0-41); Albumin Level 2.8 g/dL (3.5-5.2); Alkaline Phosphatase 248 U/L (40-130); Anion Gap 20.6 (5-19); Aspartate Amino Transferase 19 U/L (0-40); Blood Urea Nitrogen 22 mg/dL (8-23); Carbon Dioxide 27 mmol/L (22-29); Chloride 90 mmol/L (98-107); Creatinine Clr Calc Pharmacy 90.4465; Globulin 3.7 g/dL (1.3-4.6); Glomerular Filtration Rate 112.1 mL/min (90-130); Glucose 136 mg/dL (65-115); Magnesium 2.1 mg/dL (1.7-2.3); Osmolality Calculated 283 mOsm/kg (285-295); Potassium 3.6 mmol/L (3.5-5.1); Sodium 134 mmol/L (136-145); Total Bilirubin 0.8 mg/dL (0.15-1.2); Total Protein 6.5 g/dL (6.6-8.7)
[2024-06-04] MEDS: piperacillin-tazobactam 3.375 GM in sodium chloride 0.9% (plus) 50 ML IV (20:48)
[2024-06-04] MEDS: pantoprazole 40 mg SDV IVP (20:48)
[2024-06-04] MEDS: morphine 4 mg/mL SDV 1 mL IVP (23:31)
== END 2024-06-04 23:36 | disposition short-term general hospital (02) ==
PROVIDERS: Emergency Provider Emergency Medicine; PCP Nurse Practitioner
DX: K26.5 Chronic or unspecified duodenal ulcer with perforation (principal); C25.9 Malignant neoplasm of pancreas, unspecified; Z93.1 Gastrostomy status
CPT/HCPCS: 36415; 74177; 80053; 83735; 85025; 87070; 87077; 87186; 96365; 96366; 96375; 96376; 99285; J2270; J2405; J2470; J2543